=== PATIENT | male | born 1990 | race African-American/Black ===

== ENCOUNTER 2018-04-28 22:47 | Emergency (ER) | payer SELFPAY ==
--- OUTSIDE RECORDS SUMMARY | 2018-04-28 22:49 | XMS REPORT | Clinical Summary ---
:1990 Author Organization [facility] Address [address] [place] [address] Care Team Providers Name Role Phone Asked, No Pcp Primary Care Provider Unavailable Allergies No Known Allergies Medications No known medications Active Problems No known active problems Family History Medical History Relation Name Comments No Known Problems Father No Known Problems Mother Relation Name Status Comments Father Mother Social History Tobacco Use Types Packs/Day Years Used Date Never Smoker Alcohol Use Drinks/Week oz/Week Comments No Sex Assigned at Date Recorded Not on file Job Start Date Occupation Industry Not on file Not on file Not on file Travel History Travel Start Travel End No recent travel history available. Last Filed Vital Signs Not on file Plan of Treatment Health Maintenance Due Date Last Done Comments MMR VACCINES (1 of 1 - Standard 1991 series) VARICELLA VACCINES (1 of 2 - 2-dose 2003 adolescent series) INFLUENZA VACCINE 01/02/2018 HEPATITIS B VACCINES Aged Out No longer eligible based on patient's age to complete this topic IPV VACCINES Aged Out No longer eligible based on patient's age to complete this topic MENINGOCOCCAL VACCINE Aged Out No longer eligible based on patient's age to complete this topic Results Not on fileafter 04/27/2017 Insurance Payer Benefit Plan / Group Subscriber ID Type Phone Address [employer] ALLIED/A[employer] SIG ADMIN xxxxxxxxx PPO Advance Directives Patient has advance care planning documents on file. For more information, please contact:[address] [address]
[2018-04-29] MEDS ORDERED: MEPERIDINE HCL 50 MG/ML AMP ONE (00:14)
[2018-04-29] MEDS ORDERED: METHYLPREDNISOLONE 125 MG INJ ONE (00:14)
[2018-04-29] MEDS ORDERED: NA CHLORIDE 0.9% 1,000 ML ONE (00:15)
[2018-04-29] MEDS ORDERED: ONDANSETRON 4 MG/2 ML VIAL ONE (00:15)
[2018-04-29] MEDS ORDERED: CLINDAMYCIN 900MG/D5W 900 MG/50 ML IVPB IV ONE (00:15)
[2018-04-29 00:54] LABS: Absolute Lymphocytes (CBC) 1.3 K/uL (0.7-4.9); Absolute Monocytes 0.6 K/uL (0.1-1.3); Absolute Neutrophil 3.4 K/uL (1.8-8.0); Basophils % 0.7 % (0-1.3); Eosinophils % 4.2 % (0-4.4); Hematocrit 41.7 % (39.6-49.0); Lymphocytes % 23.4 % (15.3-44.8); MCH 26.6 pg (27.0-35.0); MCV 78.7 fL (80-100); MPV 7.9 fL (7.6-11.3); Monocytes % 11.2 % (3.3-12.3)
[2018-04-29 01:00] LABS: Potassium 3.9 mmol/L (3.5-5.1)
--- NOTE | 2018-04-29 01:50 | EDPHYS ---
Physician Documentation [facility] Name: Dannie Snell Age: 27 yrs Sex: Male : 1990 Arrival Date: 04/28/2018 Time: 22:47 Bed 17 Private MD: ED Physician Taco Hearn HPI: 04/28 23:52 This 27 yrs old Black Male presents to ER via Ambulatory with complaints of Mouth pkl Lacerations. 23:52 The patient has a laceration The injury was Bit the inside of his cheeks while chewing pkl gum yesterday. Now complain of pain in mouth and unable to fully open his mouth. Historical: - Allergies: 23:03 No Known Allergies; bb - Home Meds: 23:03 None [Active]; bb - PMHx: 23:03 None; bb - PSHx: 23:03 None; bb - Immunization history:: Adult Immunizations up to date. - Social history:: Smoking status: Patient uses tobacco products, denies chronic smoking, but will smoke occasionally, Patient uses alcohol, occasionally. Patient/guardian denies using street drugs. - Ebola Screening: : No symptoms or risks identified at this time. ROS: 23:56 Eyes: Negative for injury, pain, redness, and discharge. pkl 23:56 ENT: Positive for Pain in mouth and difficulty opening mouth fully. 23:56 Neck: Negative for stiffness. 23:56 Cardiovascular: Negative for chest pain. 23:56 Respiratory: Negative for cough, shortness of breath. 23:56 Abdomen/GI: Negative for abdominal pain, nausea, vomiting, and diarrhea. 23:56 Back: Negative for acute changes. 23:56 : Negative for urinary symptoms. 23:56 MS/extremity: Negative for acute changes. 23:56 Skin: Negative for rash. 23:56 Neuro: Negative for altered mental status. Exam: 23:56 Head/Face: Normocephalic, atraumatic. Eyes: Pupils equal round and reactive to light, pkl extra-ocular motions intact. Lids and lashes normal. Conjunctiva and sclera are non-icteric and not injected. Cornea within normal limits. Periorbital areas with no swelling, redness, or edema. 23:56 ENT: Mouth: unable to open mouth. 23:56 Neck: Exam negative for nuchal rigidity. 23:56 Chest/axilla: Exam negative for acute changes. 23:56 Cardiovascular: Exam negative for acute changes. 23:56 Respiratory: Exam negative for acute changes. 23:56 Abdomen/GI: Bowel sounds: normal, Palpation: abdomen is soft and non-tender, in all quadrants. 23:56 Back: Exam negative for acute changes. 23:56 : Exam negative for acute changes. 23:56 Musculoskeletal/extremity: Exam is negative for acute changes. 23:56 Skin: Exam negative for rash. 23:56 Neuro: Orientation: is normal, Mentation: is normal, Cranial nerves: grossly normal, Motor: is normal. Vital Signs: 23:03 BP 137 / 96; Pulse 78; Resp 16 S; Temp 98.8(O); Pulse Ox 99% on R/A; Weight 74.84 kg bb (R); Height 5 ft. 4 in. (162.56 cm) (R); Pain 8/10; 04/29 00:30 BP 132 / 77; Pulse 76; Resp 16 S; Pulse Ox 99% on R/A; cc3 01:45 BP 128 / 69; Pulse 77; Resp 18 S; Pulse Ox 98% on R/A; cc3 04/28 23:03 Body Mass Index 28.32 (74.84 kg, 162.56 cm) bb MDM: 04/28 23:09 Patient medically screened. pkl 04/29 01:38 Data reviewed: vital signs, nurses notes, lab test result(s). pkl 04/28 23:51 Order name: CBC with Diff pkl 04/28 23:51 Order name: Chem 7; Complete Time: 01:36 pkl 04/28 23:51 Order name: Sed Rate pkl 04/28 23:52 Order name: CBC with Automated Diff; Complete Time: 01:36 EDMS 04/28 23:52 Order name: Sedimentation Rate, Westergren; Complete Time: 01:36 EDMS Administered Medications: 00:15 Drug: NS 0.9% 1000 ml Route: IV; Rate: 125 ml/hr; Site: left antecubital; cc3 02:05 Follow up: Response: No adverse reaction; IV Status: Completed infusion; IV Intake: cc3 1000ml 00:17 Drug: SOLU-Medrol 125 mg Route: IVP; Site: left antecubital; cc3 01:00 Follow up: Response: No adverse reaction cc3 00:20 Drug: Zofran 4 mg Route: IVP; Site: left antecubital; cc3 01:00 Follow up: Response: No adverse reaction; Nausea is decreased cc3 00:24 Drug: Demerol 50 mg Route: IVP; Site: left antecubital; cc3 01:00 Follow up: Response: No adverse reaction; Pain is decreased cc3 00:27 Drug: Clindamycin 900 mg Route: IVPB; Infused Over: 30 mins; Site: left antecubital; cc3 01:00 Follow up: Response: No adverse reaction; IV Status: Completed infusion; IV Intake: [id number] Disposition: 04/29/18 01:50 Discharged to Home. Impression: Infected wound buccal mucosa. Trismus. - Condition is Stable. - Prescriptions for Clindamycin HCl 300 mg Oral Capsule - take 1 capsule by ORAL route every 6 hours for 7 days; 28 capsule. Ultram 50 mg Oral Tablet - take 1 tablet by ORAL route every 8 hours As needed; 20 tablet. - Medication Reconciliation Form, Thank You Letter, Antibiotic Education, Prescription Opioid Use, Work release form form. - Follow up: Jocy Grimes MD; When: 1 - 2 days; Reason: Re-evaluation by your physician. - Problem is new. - Symptoms have improved. Signatures: Dispatcher [employer] EDMS Taco Hearn MD MD pkl Addie Scott RN RN Jessie Smiley cc3 Corrections: (The following items were deleted from the chart) 02:12 01:50 04/29/2018 01:50 Discharged to Home. Impression: Infected wound buccal mucosa. cc3 Trismus. Condition is Stable. Forms are Medication Reconciliation Form, Thank You Letter, Antibiotic Education, Prescription Opioid Use. Follow up: Jocy Grimes; When: 1 - 2 days; Reason: Re-evaluation by your physician. Problem is new. Symptoms have improved. pkl
--- NOTE | 2018-04-29 01:50 | ER ---
Nurse's Notes [facility] Name: Dannie Snell Age: 27 yrs Sex: Male : 1990 Arrival Date: 04/28/2018 Time: 22:47 Bed 17 Private MD: Diagnosis: Infected wound buccal mucosa. Trismus Presentation: 04/28 23:01 Presenting complaint: Patient states: he was chewing gum yesterday and bit the inside bb of his cheeks bilaterally and now is having a lot of pain unable to fully open his mouth and can't sleep. Transition of care: patient was not received from another setting of care. Onset of symptoms was April 27, 2018. Risk Assessment: Do you want to hurt yourself or someone else? Patient reports no desire to harm self or others. Initial Sepsis Screen: Does the patient meet any 2 criteria? No. Patient's initial sepsis screen is negative. Does the patient have a suspected source of infection? No. Patient's initial sepsis screen is negative. Care prior to arrival: None. 23:01 Method Of Arrival: Ambulatory bb 23:01 Acuity: YENI 4 bb Triage Assessment: 23:00 General: Appears in no apparent distress. uncomfortable, Behavior is calm, cooperative, cc3 appropriate for age. Pain: Complains of pain in buccal mucosa. Historical: - Allergies: 23:03 No Known Allergies; bb - Home Meds: 23:03 None [Active]; bb - PMHx: 23:03 None; bb - PSHx: 23:03 None; bb - Immunization history:: Adult Immunizations up to date. - Social history:: Smoking status: Patient uses tobacco products, denies chronic smoking, but will smoke occasionally, Patient uses alcohol, occasionally. Patient/guardian denies using street drugs. - Ebola Screening: : No symptoms or risks identified at this time. Screenin:00 Abuse screen: Denies threats or abuse. Denies injuries from another. Nutritional cc3 screening: No deficits noted. Tuberculosis screening: No symptoms or risk factors identified. Fall Risk Ambulatory Aid- None/Bed Rest/Nurse Assist (0 pts). Gait- Normal/Bed Rest/Wheelchair (0 pts) Mental Status- Oriented to own ability (0 pts). Assessment: 23:00 General: Appears in no apparent distress. uncomfortable, Behavior is calm, cooperative, cc3 appropriate for age. Pain: Complains of pain in buccal mucosa. Neuro: Level of Consciousness is awake, alert, obeys commands, Oriented to person, place, time, situation, Appropriate for age. Cardiovascular: Denies chest pain. Respiratory: Airway is patent Respiratory effort is even, unlabored, Respiratory pattern is regular, symmetrical. GI: Abdomen is round non-distended. : No signs and/or symptoms were reported regarding the genitourinary system. EENT: No signs and/or symptoms were reported regarding the EENT system. Derm: No signs and/or symptoms reported regarding the dermatologic system. Musculoskeletal: Circulation, motion, and sensation intact. Range of motion: intact in all extremities. 04/29 00:30 Reassessment: Patient appears in no apparent distress at this time. Patient and/or cc3 family updated on plan of care and expected duration. Pain level reassessed. Patient is alert, oriented x 3, equal unlabored respirations, skin warm/dry/pink. 01:15 Reassessment: Patient appears in no apparent distress at this time. Patient and/or cc3 family updated on plan of care and expected duration. Pain level reassessed. Patient is alert, oriented x 3, equal unlabored respirations, skin warm/dry/pink. Dr. Hearn ordered to run bolus the IV fluid. 02:05 Reassessment: Patient appears in no apparent distress at this time. Patient and/or cc3 family updated on plan of care and expected duration. Pain level reassessed. Patient is alert, oriented x 3, equal unlabored respirations, skin warm/dry/pink. Dr. Hearn discharged home the patient with prescription given. IV cannula removed and patient left ER vitally stable and ambulatory. Vital Signs: 04/28 23:03 BP 137 / 96; Pulse 78; Resp 16 S; Temp 98.8(O); Pulse Ox 99% on R/A; Weight 74.84 kg bb (R); Height 5 ft. 4 in. (162.56 cm) (R); Pain 8/; 04/29 00:30 BP 132 / 77; Pulse 76; Resp 16 S; Pulse Ox 99% on R/A; cc3 01:45 BP 128 / 69; Pulse 77; Resp 18 S; Pulse Ox 98% on R/A; cc3 04/28 23:03 Body Mass Index 28.32 (74.84 kg, 162.56 cm) bb ED Course: 04/28 22:47 Patient arrived in ED. ds1 22:52 Jessie Bales is Primary Nurse. cc3 23:00 Patient has correct armband on for positive identification. Bed in low position. Call cc3 light in reach. Side rails up X 1. Pulse ox on. NIBP on. 23:03 Triage completed. bb 23:03 Arm band placed on Patient placed in an exam room, on a stretcher, on pulse oximetry. bb 23:09 Taco Hearn MD is Attending Physician. pkl 04/29 01:48 Jocy Grimes MD is Referral Physician. pkl 02:05 No provider procedures requiring assistance completed. IV discontinued, intact, cc3 bleeding controlled, No redness/swelling at site. Pressure dressing applied. Administered Medications: 00:15 Drug: NS 0.9% 1000 ml Route: IV; Rate: 125 ml/hr; Site: left antecubital; cc3 02:05 Follow up: Response: No adverse reaction; IV Status: Completed infusion; IV Intake: cc3 1000ml 00:17 Drug: SOLU-Medrol 125 mg Route: IVP; Site: left antecubital; cc3 01:00 Follow up: Response: No adverse reaction cc3 00:20 Drug: Zofran 4 mg Route: IVP; Site: left antecubital; cc3 01:00 Follow up: Response: No adverse reaction; Nausea is decreased cc3 00:24 Drug: Demerol 50 mg Route: IVP; Site: left antecubital; cc3 01:00 Follow up: Response: No adverse reaction; Pain is decreased cc3 00:27 Drug: Clindamycin 900 mg Route: IVPB; Infused Over: 30 mins; Site: left antecubital; cc3 01:00 Follow up: Response: No adverse reaction; IV Status: Completed infusion; IV Intake: [id number] Intake: 01:00 IV: 50ml; Total: 50ml. cc3 02:05 IV: 1000ml; Total: 1050ml. cc3 Outcome: 01:50 Discharge ordered by . pkl 02:05 Discharged to home ambulatory. cc3 02:05 Condition: stable 02:05 Discharge instructions given to patient, Instructed on discharge instructions, follow up and referral plans. medication usage, Demonstrated understanding of instructions, follow-up care, medications, Prescriptions given X 2. 02:12 Patient left the ED. cc3 Signatures: Taco Hearn MD MD pkl Sanford, Demi ds1 Ballard, Brenda RN RN Jessie Smiley cc3 Corrections: (The following items were deleted from the chart) 04:07 01:15 Reassessment: Patient appears in no apparent distress at this time. Patient cc3 and/or family updated on plan of care and expected duration. Pain level reassessed. Patient is alert, oriented x 3, equal unlabored respirations, skin warm/dry/pink. cc3
== END 2018-04-29 02:12 | disposition home or self-care (01) ==
LOC: ER 22:47
DX: S01.502A Unspecified open wound of oral cavity, initial encounter (principal); R25.2 Cramp and spasm; B99.9 Unspecified infectious disease; Z72.0 Tobacco use; X58.XXXA Exposure to other specified factors, initial encounter
CPT/HCPCS: 36415; 80048; 85025; 85652; 96361; 96365; 96375; 99283; J2175; J2405; J2930; J7030

== ENCOUNTER 2018-10-08 13:16 | Emergency (ER) | payer SELFPAY ==
--- OUTSIDE RECORDS SUMMARY | 2018-10-08 13:18 | XMS REPORT | Clinical Summary ---
:1990 Author Organization [facility] Address [address] [place] [address] Care Team Providers Name Role Phone Asked, [...] Health Maintenance Due Date Last Done Comments INFLUENZA VACCINE 01/02/2019 Results Not on fileafter 10/07/2017 Insurance Payer Benefit Plan / Group Subscriber ID Type Phone Address [employer] ALLIED/AETNA SIG ADMIN xxxxxxxxx PPO Advance Directives Patient has advance care planning documents on file. For more information, please contact:[facility] [place] [address]
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
== END 2018-10-08 16:02 | disposition home or self-care (01) ==
LOC: ER 13:16
DX: M54.2 Cervicalgia (principal); J02.9 Acute pharyngitis, unspecified; V49.49XA Driver injured in collision with other motor vehicles in traffic accident, initial encounter; F17.210 Nicotine dependence, cigarettes, uncomplicated
CPT/HCPCS: 72125; 87070; 87081; 99282

== ENCOUNTER 2019-06-22 07:54 | Emergency (ER) | payer OTHER, SELFPAY ==
--- NOTE | 2019-06-22 08:13 | ER ---
Nurse's Notes [facility] Name: Dannie Snell Age: 29 yrs Sex: Male : 1990 Arrival Date: 06/22/2019 Time: 07:57 Bed 14 Private MD: Diagnosis: Acute serous otitis media, right ear Presentation: 06/22 08:02 Presenting complaint: Patient states: right ear started throbbing inside, could barely iw hear out of it, since last night. Transition of care: patient was not received from another setting of care. Onset of symptoms was June 21, 2019. Risk Assessment: Do you want to hurt yourself or someone else? Patient reports no desire to harm self or others. Initial Sepsis Screen: Does the patient meet any 2 criteria? No. Patient's initial sepsis screen is negative. Does the patient have a suspected source of infection? No. Patient's initial sepsis screen is negative. Care prior to arrival: None. 08:02 Method Of Arrival: Ambulatory iw 08:02 Acuity: YENI 4 iw Historical: - Allergies: 08:03 No Known Allergies; iw - Home Meds: 08:03 None [Active]; iw - PMHx: 08:03 None; iw - PSHx: 08:03 None; iw - Immunization history:: Adult Immunizations not up to date. - Social history:: Smoking status: Patient reports the use of cigarette tobacco products, smokes one-half pack cigarettes per day. - Ebola Screening: : Patient negative for fever greater than or equal to 101.5 degrees Fahrenheit, and additional compatible Ebola Virus Disease symptoms Patient denies exposure to infectious person Patient denies travel to an Ebola-affected area in the 21 days before illness onset No symptoms or risks identified at this time. Screenin:22 Abuse screen: Denies threats or abuse. Nutritional screening: No deficits noted. ae4 Tuberculosis screening: No symptoms or risk factors identified. Fall Risk None identified. Assessment: 08:20 General: Appears in no apparent distress. uncomfortable, Behavior is calm, cooperative. ae4 Pain: Complains of pain in right ear canal. Neuro: Level of Consciousness is awake, alert, obeys commands, Oriented to person, place, time, situation. Cardiovascular: Patient's skin is warm and dry. Respiratory: Airway is patent. GI: No signs and/or symptoms were reported involving the gastrointestinal system. : No signs and/or symptoms were reported regarding the genitourinary system. EENT: Tympanic membrane Tympanic membrane is moderately swollen. Derm: Skin is normal, Skin temperature is warm. Musculoskeletal: No signs and/or symptoms reported regarding the musculoskeletal system. Vital Signs: 08:03 BP 138 / 97; Pulse 91; Resp 16; Temp 98.8(TE); Pulse Ox 98% on R/A; Weight 79.38 kg; iw Height 5 ft. 4 in. (162.56 cm); Pain 8/10; 08:03 Body Mass Index 30.04 (79.38 kg, 162.56 cm) iw ED Course: 07:57 Patient arrived in ED. rg4 07:58 Mars Wisdom FNP-C [facility] la1 07:58 Koby Ramirez MD is Attending Physician. la1 08:03 Triage completed. iw 08:03 Arm band placed on. iw 08:14 Bebo Campbell, RN is Primary Nurse. ae4 08:22 Call light in reach. Side rails up X 1. ae4 08:22 No provider procedures requiring assistance completed. Patient did not have IV access ae4 during this emergency room visit. Administered Medications: 08:19 Drug: Motrin 800 mg Route: PO; ae4 08:29 Follow up: Response: Medication administered at discharge. ae4 08:19 Drug: Tylenol 1000 mg Route: PO; ae4 08:28 Follow up: Response: Medication administered at discharge. ae4 Outcome: 08:13 Discharge ordered by . la1 08:23 Discharged to home ambulatory. ae4 08:23 Condition: stable 08:23 Discharge instructions given to patient, Instructed on discharge instructions, follow up and referral plans. medication usage, Demonstrated understanding of instructions, Prescriptions given X 1. 08:29 Patient left the ED. ae4 Signatures: Virginia Olea RN RN Mars Wisdom FNP-C FNP-Alma Velez rg4 Bebo Campbell RN RN ae4
--- NOTE | 2019-06-22 08:14 | EDPHYS ---
Physician Documentation [facility] Name: Dannie Snell Age: 29 yrs Sex: Male : 1990 Arrival Date: 06/22/2019 Time: 07:57 Bed 14 Private MD: ARNAV Physician Koby Ramirez HPI: 06/22 08:08 This 29 yrs old Black Male presents to ER via Ambulatory with complaints of Ear Pain. la1 08:08 The patient presents with pain. The complaints affect the right ear. Onset: The la1 symptoms/episode began/occurred 1 day(s) ago. Modifying factors: The symptoms are alleviated by nothing, the symptoms are aggravated by nothing. Associated signs and symptoms: Pertinent positives: fever, cough. Severity of symptoms: At their worst the symptoms were mild. The patient has not experienced similar symptoms in the past. recently ill with cough/congestion, now having right ear pain. Historical: - Allergies: 08:03 No Known Allergies; iw - Home Meds: 08:03 None [Active]; iw - PMHx: 08:03 None; iw - PSHx: 08:03 None; iw - Immunization history:: Adult Immunizations not up to date. - Social history:: Smoking status: Patient reports the use of cigarette tobacco products, smokes one-half pack cigarettes per day. - Ebola Screening: : Patient negative for fever greater than or equal to 101.5 degrees Fahrenheit, and additional compatible Ebola Virus Disease symptoms Patient denies exposure to infectious person Patient denies travel to an Ebola-affected area in the 21 days before illness onset No symptoms or risks identified at this time. ROS: 08:09 Eyes: Negative for injury, pain, redness, and discharge. la1 08:09 Neck: Negative for injury, pain, and swelling, Cardiovascular: Negative for chest pain, palpitations, and edema, Respiratory: Negative for shortness of breath, cough, wheezing, and pleuritic chest pain, Abdomen/GI: Negative for abdominal pain, nausea, vomiting, diarrhea, and constipation, Back: Negative for injury and pain, MS/Extremity: Negative for injury and deformity, Skin: Negative for injury, rash, and discoloration, Neuro: Negative for headache, weakness, numbness, tingling, and seizure. 08:09 Constitutional: Positive for chills. 08:09 ENT: Positive for ear pain. Exam: 08:10 Constitutional: This is a well developed, well nourished patient who is awake, alert, la1 and in no acute distress. Head/Face: Normocephalic, atraumatic. Eyes: Pupils equal round and reactive to light, extra-ocular motions intact. Lids and lashes normal. Conjunctiva and sclera are non-icteric and not injected. Cornea within normal limits. Periorbital areas with no swelling, redness, or edema. 08:10 Neck: Trachea midline, no thyromegaly or masses palpated, and no cervical lymphadenopathy. Supple, full range of motion without nuchal rigidity, or vertebral point tenderness. No Meningismus. Chest/axilla: Normal chest wall appearance and motion. Nontender with no deformity. Cardiovascular: Regular rate and rhythm Respiratory: Lungs have equal breath sounds bilaterally, clear to auscultation. Skin: Warm, dry with normal turgor. Normal color with no rashes, no lesions, and no evidence of cellulitis. MS/ Extremity: Pulses equal, no cyanosis. Neurovascular intact. Full, normal range of motion. 08:10 ENT: External ear(s): are unremarkable, Ear canal(s): are normal, TM's: bulging, on the right, dullness, on the right, Examination of the other ear shows no obvious abnormality, Posterior pharynx: is normal, Airway: normal, Tonsils: are normal in appearance, Uvula: normal, midline, erythema, is not appreciated. Vital Signs: 08:03 BP 138 / 97; Pulse 91; Resp 16; Temp 98.8(TE); Pulse Ox 98% on R/A; Weight 79.38 kg; iw Height 5 ft. 4 in. (162.56 cm); Pain 8/10; 08:03 Body Mass Index 30.04 (79.38 kg, 162.56 cm) iw MDM: 08:04 Patient medically screened. la1 08:11 Data reviewed: vital signs, nurses notes, and as a result, I will discharge patient. la1 Data interpreted: Pulse oximetry: on room air is 98 %. Interpretation: normal. Counseling: I had a detailed discussion with the patient and/or guardian regarding: the historical points, exam findings, and any diagnostic results supporting the discharge/admit diagnosis, the presence of at least one elevated blood pressure reading (>120/80) during this emergency department visit, the need for outpatient follow up, a family practitioner, to return to the emergency department if symptoms worsen or persist or if there are any questions or concerns that arise at home. Administered Medications: 08:19 Drug: Motrin 800 mg Route: PO; ae4 08:29 Follow up: Response: Medication administered at discharge. ae4 08:19 Drug: Tylenol 1000 mg Route: PO; ae4 08:28 Follow up: Response: Medication administered at discharge. ae4 Disposition: 10:01 Co-signature as Attending Physician, Koby Ramirez MD I agree with the assessment and joanna plan of care. Disposition: 06/22/19 08:13 Discharged to Home. Impression: Acute serous otitis media, right ear. - Condition is Stable. - Discharge Instructions: Otitis Media, Adult. - Prescriptions for Augmentin 875- 125 mg Oral Tablet - take 1 tablet by ORAL route every 12 hours for 10 days; 20 tablet. - Medication Reconciliation Form, Thank You Letter, Antibiotic Education form. - Follow up: Private Physician; When: As needed; Reason: Recheck today's complaints, Continuance of care, Re-evaluation by your physician. - Problem is new. - Symptoms are unchanged. Signatures: Koby Ramirez MD MD cha Williams, Irene, RN RN Mars Wisdom, PRINCIPAL SYSTEM SOFTWARE ENGINEER-C PRINCIPAL SYSTEM SOFTWARE ENGINEER-Cla1 Bebo Campbell RN RN ae4 Corrections: (The following items were deleted from the chart) 08:29 08:13 06/22/2019 08:13 Discharged to Home. Impression: Acute serous otitis media, right ae4 ear. Condition is Stable. Forms are Medication Reconciliation Form, Thank You Letter, Antibiotic Education, Prescription Opioid Use. Follow up: Private Physician; When: As needed; Reason: Recheck today's complaints, Continuance of care, Re-evaluation by your physician. Problem is new. Symptoms are unchanged. la1
[2019-06-22] MEDS ORDERED: IBUPROFEN 400 MG TAB ONE (08:18)
[2019-06-22] MEDS ORDERED: ACETAMINOPHEN 500 MG TAB ONE (08:18)
[2019-06-22 11:30] VITALS: BP 138/97; TEMP 98.8; O2SAT 98
== END 2019-06-22 08:29 | disposition home or self-care (01) ==
LOC: ER 07:54
DX: H65.01 Acute serous otitis media, right ear (principal)
CPT/HCPCS: 99283

== ENCOUNTER 2019-12-23 14:52 | Emergency (ER) | payer OTHER ==
--- OUTSIDE RECORDS SUMMARY | 2019-12-23 15:36 | XMS REPORT | Clinical Summary ---
:1990 Author Organization [facility] Address [address] [place] [address] Care Team Providers Name Role Phone Asked, [...] Due Date Last Done Comments INFLUENZA VACCINE 01/03/2020 Results Not on fileafter 12/22/2018 [id number] 1 Advance Directives For more information, please contact: [phone] Type Date Recorded Patient Consultant Education Explanati on Advance Directives, Living Will and Medical Power of Technical Support Director
--- NOTE | 2019-12-23 15:55 | EDPHYS ---
Physician Documentation [facility] Name: Dannie Snell Age: 29 yrs Sex: Male : 1990 Arrival Date: 12/23/2019 Time: 14:59 Bed 19 Private MD: ED Physician Andrade Velasco HPI: 12/22 15:51 This 29 yrs old Black Male presents to ER via Ambulatory with complaints of Back Pain. jmm 15:51 The patient presents with pain that is acute. Onset: The symptoms/episode jmm began/occurred gradually, 3 day(s) ago. The pain does not radiate. Associated signs and symptoms: Pertinent negatives: chest pain, fever. This is a 29 year old male with no chronic medical conditions that presents to the ED with complaints of right subscapular back pain beginning approx 3 days ago. Denies known injury. Worsened with movement. Denies chest pain, denies shortness of breath. . Historical: - Allergies: 15:16 No Known Allergies; ca1 - Home Meds: 15:16 None [Active]; ca1 - PMHx: 15:16 None; ca1 - PSHx: 15:16 None; ca1 - Immunization history:: Adult Immunizations up to date. - Social history:: Smoking status: Patient/guardian denies using tobacco, Stopped _ months ago 3. ROS: 15:51 Constitutional: Negative for fever, chills, and weight loss, Cardiovascular: Negative jmm for chest pain, palpitations, and edema, Respiratory: Negative for shortness of breath, cough, wheezing, and pleuritic chest pain. 15:51 Back: Positive for pain with movement. 15:51 All other systems are negative. Exam: 15:51 Constitutional: This is a well developed, well nourished patient who is awake, alert, jmm and in no acute distress. Head/Face: atraumatic. Eyes: EOMI, no conjunctival erythema appreciated ENT: Moist Mucus Membranes Neck: Trachea midline, Supple Chest/axilla: Normal chest wall appearance and motion. Cardiovascular: Regular rate and rhythm. No edema appreciated Respiratory: Normal respirations, no respiratory distress appreciated Abdomen/GI: Non distended, soft 15:51 MS/ Extremity: Moves all extremities, no obvious deformities appreciated, no edema noted to the lower extremities Neuro: Awake and alert, normal gait Psych: Behavior is normal, Mood is normal, Patient is cooperative and pleasant 15:51 Back: muscle spasm, is appreciated in the right subscapular area. Vital Signs: 15:10 BP 136 / 95; Pulse 92; Resp 15 S; Temp 98(TE); Pulse Ox 100% on R/A; Weight 81.65 kg ca1 (R); Height 5 ft. 4 in. (162.56 cm) (R); Pain 8/10; 16:41 BP 127 / 85; Pulse 87; Resp 18; Temp 97.3; Pulse Ox 99% on R/A; ph 15:10 Body Mass Index 30.90 (81.65 kg, 162.56 cm) ca1 MDM: 15:44 Patient medically screened. uzair 15:53 Data reviewed: vital signs, nurses notes. Counseling: I had a detailed discussion with uzair the patient and/or guardian regarding: the historical points, exam findings, and any diagnostic results supporting the discharge/admit diagnosis, the need for outpatient follow up, to return to the emergency department if symptoms worsen or persist or if there are any questions or concerns that arise at home. ED course: Pain is reproduced on palpation and ROM of the right arm. PE indicated most likely a MS source. Patient is advised to return to the ED if symptoms worsen. Patient understood and agrees with the plan of care. . Administered Medications: 16:30 Drug: TORadol 30 mg Route: IM; Site: right deltoid; ph 16:43 Follow up: Response: No adverse reaction ph Disposition: 17:52 Co-signature as Attending Physician, Andrade Velasco MD. rn Disposition: 12/23/19 15:54 Discharged to Home. Impression: Muscle spasm of back. - Condition is Stable. - Discharge Instructions: Muscle Cramps and Spasms. - Prescriptions for Ibuprofen 800 mg Oral Tablet - take 1 tablet by ORAL route every 12 hours As needed take with food; 20 tablet. orphenadrine citrate 100 mg Oral Tablet Sustained Release - take 1 tablet by ORAL route 2 times per day As needed; 20 tablet. - Work release form, Medication Reconciliation Form, Thank You Letter, Antibiotic Education, Prescription Opioid Use form. - Follow up: Private Physician; When: 2 - 3 days; Reason: Recheck today's complaints, Continuance of care, Re-evaluation by your physician. Signatures: MicPaddy horne PA PA jmm Nieto, Roman, MD MD rn Mayra Holley RN RN [facility], CALLIE Arreaga RN [facility] Corrections: (The following items were deleted from the chart) 16:43 15:54 12/23/2019 15:54 Discharged to Home. Impression: Muscle spasm of back. Condition ph is Stable. Forms are Medication Reconciliation Form, Thank You Letter, Antibiotic Education, Prescription Opioid Use. Follow up: Private Physician; When: 2 - 3 days; Reason: Recheck today's complaints, Continuance of care, Re-evaluation by your physician. uzair
--- NOTE | 2019-12-23 15:55 | ER ---
Nurse's Notes [facility] Name: Dannie Snell Age: 29 yrs Sex: Male : 1990 Arrival Date: 12/23/2019 Time: 14:59 Bed 19 Private MD: Diagnosis: Muscle spasm of back Presentation: 12/22 15:10 Chief complaint: Patient states: R upper back pain x 2 days. Denies injury. Coronavirus ca1 screen: Patient denies a cough. Patient denies shortness of breath or difficulty breathing. Patient denies measured and/or subjective temperature greater than 100.4F prior to today's visit. Patient denies travel on a cruise ship or to a country the [facility] currently lists as an affected area. Patient denies contact with known and/or suspected case of COVID-19. Proceed with normal triage. Ebola Screen: Patient negative for fever greater than or equal to 101.5 degrees Fahrenheit, and additional compatible Ebola Virus Disease symptoms Patient denies exposure to infectious person. Patient denies travel to an Ebola-affected area in the 21 days before illness onset. No symptoms or risks identified at this time. Initial Sepsis Screen: Does the patient meet any 2 criteria? No. Patient's initial sepsis screen is negative. Does the patient have a suspected source of infection? No. Patient's initial sepsis screen is negative. Risk Assessment: Do you want to hurt yourself or someone else? Patient reports no desire to harm self or others. Onset of symptoms was December 23, 2019. 15:10 Method Of Arrival: Ambulatory ca1 15:10 Acuity: YENI 4 ca1 Historical: - Allergies: 15:16 No Known Allergies; ca1 - Home Meds: 15:16 None [Active]; ca1 - PMHx: 15:16 None; ca1 - PSHx: 15:16 None; ca1 - Immunization history:: Adult Immunizations up to date. - Social history:: Smoking status: Patient/guardian denies using tobacco, Stopped _ months ago 3. Screenin:41 Abuse screen: Denies threats or abuse. Denies injuries from another. Nutritional ph screening: No deficits noted. Tuberculosis screening: No symptoms or risk factors identified. Fall Risk None identified. Assessment: 16:39 General: Appears in no apparent distress. uncomfortable, well groomed, Behavior is ph calm, cooperative, appropriate for age. Pain: Complains of pain in right subscapular area. Neuro: Level of Consciousness is awake, alert, obeys commands, Oriented to person, place, time, situation. Cardiovascular: Capillary refill < 3 seconds in bilateral fingers Patient's skin is warm and dry. Respiratory: Airway is patent Respiratory effort is even, unlabored, Respiratory pattern is regular, symmetrical. Derm: Skin is intact, is healthy with good turgor, Skin is pink, warm \T\ dry. Musculoskeletal: Circulation, motion, and sensation intact. Range of motion: intact in all extremities. Vital Signs: 15:10 BP 136 / 95; Pulse 92; Resp 15 S; Temp 98(TE); Pulse Ox 100% on R/A; Weight 81.65 kg ca1 (R); Height 5 ft. 4 in. (162.56 cm) (R); Pain 8/10; 16:41 BP 127 / 85; Pulse 87; Resp 18; Temp 97.3; Pulse Ox 99% on R/A; ph 15:10 Body Mass Index 30.90 (81.65 kg, 162.56 cm) ca1 ED Course: 14:59 Patient arrived in ED. fj1 15:15 Triage completed. ca1 15:16 Paddy Betancourt PA is PHCP. [facility] 15:16 Arm band placed on right wrist. ca1 15:17 Andrade Velasco MD is Attending Physician. [facility] 15:24 Mayra Holley RN is Primary Nurse. ph 16:41 Patient has correct armband on for positive identification. Bed in low position. Call light in reach. 16:41 No provider procedures requiring assistance completed. Patient did not have IV access ph during this emergency room visit. Administered Medications: 16:30 Drug: TORadol 30 mg Route: IM; Site: right deltoid; ph 16:43 Follow up: Response: No adverse reaction ph Outcome: 15:54 Discharge ordered by MD. [facility] 16:43 Patient left the ED. ph 16:43 Discharged to home ambulatory. ph 16:43 Condition: good 16:43 Discharge instructions given to patient, Instructed on discharge instructions, follow up and referral plans. medication usage, Demonstrated understanding of instructions, follow-up care, medications, Prescriptions given X 2. Signatures: Paddy Betancourt PA PA jmm Hall, Patricia, RN RN ph Whitley Chau RN RN ca1 Gustavo Del Rio fj1 Corrections: (The following items were deleted from the chart) 16:43 16:30 Reassessment: ph ph
[2019-12-23] MEDS ORDERED: KETOROLAC 30 MG/ML INJ ONE (16:39)
[2019-12-24 06:13] VITALS: BP 127/85; TEMP 97.3; O2SAT 99
== END 2019-12-23 16:43 | disposition home or self-care (01) ==
LOC: ER 14:52
DX: M62.830 Muscle spasm of back (principal)
CPT/HCPCS: 96372; 99283

== ENCOUNTER 2020-12-14 23:59 | Emergency (ER) | payer OTHER ==
--- OUTSIDE RECORDS SUMMARY | 2020-12-15 00:02 | XMS REPORT | Continuity of Care Document ---
:1990 Author Organization [facility] t Address [address] [place] [address] Care Team Providers Name Role Phone Asked, Pcp Primary Care Physician Unavailable Lab, Fam Pob I Attending Clinician Unavailable Problems This patient has no known problems. Allergies, Adverse Reactions, Alerts This patient has no known allergies or adverse reactions. Family History Family Member Diagnosis Comments Start Date Stop Date Source Natural father No Known Problems Flory Almanzar Natural mother No Known Problems Flory Almanzar Social History Social Habit Start Date Stop Date Quantity Comments Source Alcohol intake 2016-02-16 2016-02-16 Current [facility]odist 00:00:00 00:00:00 non-drinker of alcohol (finding) Sex Ass[birth year] [facility] ethodist 00:00:00 00:00:00 Smoking Status Start Date Stop Date Source Never smoker [place] [facility] t Medications This patient has no known medications. Procedures This patient has no known procedures. Plan of Care Planned Activity Planned Date Details Comments Source Future Scheduled 2021-01-02 INFLUENZA VACCINE Shirato dominique Temple Test 00:00:00 [code = INFLUENZA VACCINE] Future Scheduled 2002 COVID-19 VACCINE (1) Flory Almanzar Test 00:00:00 [code = COVID-19 VACCINE (1)] Encounters Start End Encounter Admission Attending Care Care Encounter Source Date/Time Date/Time Type Type Clinicians Facility Department ID 2020-01-01 2020-01-01 Laboratory Lab, [facility] [id number] 15:46:10 16:06:10 Only Fam Pob I [facility] [id number] [place] [id number] [facility]io [phone] [address] Results This patient has no known results.
[2020-12-15 00:42] LABS: Protime INR 1.12
[2020-12-15 00:47] LABS: Urine Blood Negative (Negative); Urine Glucose Negative (Negative); Urine Protein 2+ (Negative); Urine Specific Gravity >=1.030 (1.005-1.030)
[2020-12-15 00:48] LABS: Absolute Lymphocytes (CBC) 1.1 K/uL (0.7-4.9); Basophils % 1.1 % (0-1.3); Hematocrit 47.1 % (39.6-49.0); MPV 7.4 fL (7.6-11.3); RBC Red Blood Cell Count 6.18 M/uL (4.33-5.43)
[2020-12-15 00:53] LABS: ALT/SGPT 77 U/L (12-78); AST/SGOT 46 U/L (15-37); Alkaline Phosphatase 91 U/L (45-117); BUN Blood Urea Nitrogen 23 mg/dL (7-18); Bicarbonate 25 mmol/L (21-32); Bilirubin Direct 0.2 mg/dL (0-0.2); Bilirubin Total 0.8 mg/dL (0.2-1.0); Glucose Level 100 mg/dL (74-106); HDL Cholesterol 52 mg/dL (40-60); LDL Cholesterol, Calculated 163 (<130); Magnesium 2.1 mg/dL (1.8-2.4); NT PRO-BNP 13 pg/mL (<125); Potassium 3.8 mmol/L (3.5-5.1); Protein, Total 11.4 g/dL (6.4-8.2); Sodium Level 134 mmol/L (136-145); Troponin (Emerg Dept Use Only) < 0.02 ng/mL (0.0-0.045)
[2020-12-15] MEDS ORDERED: ONDANSETRON 4 MG/2 ML VIAL ONE (00:53)
[2020-12-15] MEDS ORDERED: NA CHLORIDE 0.9% 1,000 ML ONE ×3 (00:53→01:29)
[2020-12-15] MEDS ORDERED: MORPHINE 2 MG/ML SYR ONE (00:53)
[2020-12-15 01:02] LABS: Barbiturates NEGATIVE (NEGATIVE); Benzodiazepines NEGATIVE (NEGATIVE); Cocaine NEGATIVE (NEGATIVE); METHAMPHETAM NEGATIVE (NEGATIVE); Methadone NEGATIVE (NEGATIVE); Opiates NEGATIVE (NEGATIVE); Phencyclidine NEGATIVE (NEGATIVE); THC Cannibis NEGATIVE (NEGATIVE)
[2020-12-15] MEDS ORDERED: ASPIRIN 81 MG CHEWABLE TABLET ONE (01:29)
[2020-12-15 01:52] LABS: CKMB Creatine Kinase MB 1.9 ng/mL (1.0-3.6)
--- NOTE | 2020-12-15 01:53 | EDPHYS ---
Physician Documentation [facility] Name: Dannie Snell Age: 30 yrs Sex: Male : 1990 Arrival Date: 12/15/2020 Time: 00:03 Bed 3 Private MD: ED Physician Koby Ramirez HPI: 12/15 00:56 This 30 yrs old Black Male presents to ER via Ambulatory with complaints of Shortness joanna Of Breath, Chest Pain > 30 y/o. 00:56 The patient has shortness of breath at rest, with light activity. Onset: The joanna symptoms/episode began/occurred just prior to arrival. Duration: The symptoms are continuous, but are steadily getting better. The patient's shortness of breath has no apparent modifying factors. Associated signs and symptoms: The patient has no apparent associated signs or symptoms. Severity of symptoms: At their worst the symptoms were mild in the emergency department the symptoms are unchanged. The patient has not experienced similar symptoms in the past. Historical: - Allergies: 00:33 No Known Allergies; ak2 - Immunization history:: Adult Immunizations up to date. - Social history:: Smoking status: unknown. - Family history:: not pertinent. ROS: 00:56 Constitutional: Negative for fever, chills, and weight loss, Eyes: Negative for injury, joanna pain, redness, and discharge, ENT: Negative for injury, pain, and discharge, Neck: Negative for injury, pain, and swelling, Respiratory: Negative for shortness of breath, cough, wheezing, and pleuritic chest pain, Abdomen/GI: Negative for abdominal pain, nausea, vomiting, diarrhea, and constipation, Back: Negative for injury and pain, : Negative for injury, bleeding, discharge, and swelling, MS/Extremity: Negative for injury and deformity, Skin: Negative for injury, rash, and discoloration, Neuro: Negative for headache, weakness, numbness, tingling, and seizure, Psych: Negative for depression, anxiety, suicide ideation, homicidal ideation, and hallucinations, Allergy/Immunology: Negative for hives, rash, and allergies, Endocrine: Negative for neck swelling, polydipsia, polyuria, polyphagia, and marked weight changes, Hematologic/Lymphatic: Negative for swollen nodes, abnormal bleeding, and unusual bruising. 00:56 Cardiovascular: Positive for chest pain, with movement. Exam: 00:56 Constitutional: This is a well developed, well nourished patient who is awake, alert, joanna and in no acute distress. Head/Face: Normocephalic, atraumatic. Eyes: Pupils equal round and reactive to light, extra-ocular motions intact. Lids and lashes normal. Conjunctiva and sclera are non-icteric and not injected. Cornea within normal limits. Periorbital areas with no swelling, redness, or edema. ENT: Nares patent. No nasal discharge, no septal abnormalities noted. Tympanic membranes are normal and external auditory canals are clear. Oropharynx with no redness, swelling, or masses, exudates, or evidence of obstruction, uvula midline. Mucous membranes moist. Neck: Trachea midline, no thyromegaly or masses palpated, and no cervical lymphadenopathy. Supple, full range of motion without nuchal rigidity, or vertebral point tenderness. No Meningismus. Chest/axilla: Normal chest wall appearance and motion. Nontender with no deformity. No lesions are appreciated. Cardiovascular: Regular rate and rhythm with a normal S1 and S2. No gallops, murmurs, or rubs. Normal PMI, no JVD. No pulse deficits. Respiratory: Lungs have equal breath sounds bilaterally, clear to auscultation and percussion. No rales, rhonchi or wheezes noted. No increased work of breathing, no retractions or nasal flaring. Abdomen/GI: Soft, non-tender, with normal bowel sounds. No distension or tympany. No guarding or rebound. No evidence of tenderness throughout. Back: No spinal tenderness. No costovertebral tenderness. Full range of motion. Male : Normal genitalia with no discharge or lesions. Skin: Warm, dry with normal turgor. Normal color with no rashes, no lesions, and no evidence of cellulitis. MS/ Extremity: Pulses equal, no cyanosis. Neurovascular intact. Full, normal range of motion. Neuro: Awake and alert, GCS 15, oriented to person, place, time, and situation. Cranial nerves II-XII grossly intact. Motor strength 5/5 in all extremities. Sensory grossly intact. Cerebellar exam normal. Normal gait. Psych: Awake, alert, with orientation to person, place and time. Behavior, mood, and affect are within normal limits. 00:56 Musculoskeletal/extremity: Extremities: all appear grossly normal, with no appreciated pain with palpation, ROM: no acute changes, intact in all extremities, full active range of motion, full passive range of motion, Circulation is intact in all extremities. Sensation intact. Compartment Syndrome exam of affected extremity: is normal. Joints: All joints appear normal with full range of motion. Weight bearing: able to fully bear weight, Tendon exam: specific tendon testing normal through active and passive range of motion DVT Exam: No signs of deep vein thrombosis. no pain, no swelling, no tenderness, negative Homans' sign noted on exam, no appreciated bluish discoloration, no erythema, no increased warmth. 00:59 ECG was reviewed by the Attending Physician. [facility] Vital Signs: 00:32 BP 142 / 84; Pulse 97; Resp 18; Temp 98.6; Pulse Ox 100% ; ak2 02:49 BP 138 / 79; Pulse 96; Resp 16; Pulse Ox 100% on R/A; jm8 MDM: 00:23 Patient medically screened. joanna 00:58 Differential diagnosis: Anxiety Reaction Myocardial Infarction pneumonia, Pneumothorax joanna Pulmonary Embolism reactive airway disease. Antibiotic administration: Not indicated. The patient's Wells Deep Vein Thrombosis Score was calculated as follows: Total Score: 0-2 Pts- Low Risk. The patient's pulmonary embolism risk score was calculated as follows: Total Score: 0-2 points. This patient was found to be at low risk for a pulmonary embolism by using the Well's assessment criteria. Immunization status:. Data reviewed: vital signs, nurses notes, lab test result(s), EKG, radiologic studies, CT scan, plain films. Data interpreted: media monitor: rate is 97 beats/min, rhythm is regular, Pulse oximetry: on room air is 100 %. Test interpretation: by ED physician or midlevel provider: ECG, plain radiologic studies. Counseling: I had a detailed discussion with the patient and/or guardian regarding: the historical points, exam findings, and any diagnostic results supporting the discharge/admit diagnosis, lab results, radiology results, the need for outpatient follow up, for definitive care, a toeing stockings, a family practitioner. 12/15 00:25 Order name: Basic Metabolic Panel; Complete Time: 01:02 joanna 12/15 00:25 Order name: CBC with Diff; Complete Time: 00:56 joanna 12/15 00:25 Order name: LFT's; Complete Time: 01:02 joanna 12/15 00:25 Order name: Magnesium; Complete Time: 01:02 12/15 00:25 Order name: NT PRO-BNP; Complete Time: 01:02 12/15 00:25 Order name: PT-INR; Complete Time: 00:56 12/15 00:25 Order name: Troponin (emerg Dept Use Only); Complete Time: 01:02 [facility] 12/15 00:25 Order name: XRAY Chest (1 view) 12/15 00:25 Order name: Lipid Profile; Complete Time: 01:02 12/15 00:25 Order name: UDS; Complete Time: 01:51 [facility] 12/15 00:47 Order name: Urine Dipstick-Ancillary; Complete Time: 00:56 EDMS 12/15 01:01 Order name: D-Dimer; Complete Time: 01:51 12/15 01:01 Order name: CK joanna 12/15 01:01 Order name: Ckmb 12/15 00:25 Order name: EKG; Complete Time: 00:26 12/15 00:25 Order name: Cardiac monitoring; Complete Time: 00:39 12/15 00:25 Order name: EKG - Nurse/Tech; Complete Time: 00:39 12/15 00:25 Order name: IV Saline Lock; Complete Time: 00:27 12/15 00:25 Order name: Labs collected and sent; Complete Time: 00:27 12/15 00:25 Order name: O2 Per Protocol; Complete Time: 00:27 12/15 00:25 Order name: O2 Sat Monitoring; Complete Time: 00:27 12/15 00:25 Order name: Urine Dipstick-Ancillary (obtain specimen); Complete Time: 00:47 12/15 01:01 Order name: Thorax Wo Con EDMS EC:59 Rate is 104 beats/min. Rhythm is regular. QRS [place] is Normal. LA interval is normal. [facility] QRS interval is normal. QT interval is normal. No Q waves. T waves are Normal. No ST changes noted. Clinical impression: Sinus tachycardia and No evidence of ischemia. Interpreted by me. Reviewed by me. Administered Medications: 00:39 Drug: NS 0.9% 1000 ml Route: IV; Rate: 1 bolus; Site: right antecubital; jm8 01:24 Follow up: IV Status: Completed infusion jm8 00:39 Drug: morphine 2 mg Route: IVP; Site: right antecubital; jm8 01:24 Follow up: Response: No adverse reaction jm8 00:39 Drug: Zofran (Ondansetron) 4 mg Route: IVP; Site: right antecubital; jm8 01:23 Follow up: Response: No adverse reaction 8 :23 Drug: NS 0.9% 1000 ml Route: IV; Rate: 1 bolus; Site: right antecubital; jm8 02:45 Follow up: IV Status: Completed infusion jm8 :23 Drug: Aspirin 81 mg Route: PO; jm8 02:45 Follow up: Response: No adverse reaction 8 :23 Drug: NS 0.9% 1000 ml Route: IV; Rate: 1 bolus; Site: right antecubital; jm8 02:45 Follow up: IV Status: Completed infusion jm8 Disposition Summary: 12/15/20 01:52 Discharge Ordered Location: Home joanna Problem: new joanna Symptoms: have improved joanna Condition: Stable joanna Diagnosis - Heat exhaustion, unspecified joanna - Chest pain, unspecified joanna - Chest pain on breathing joanna - Dehydration joanna - Unspecified kidney failure - renal insufficency joanna Followup: joanna - With: Private Physician - When: 2 - 3 days - Reason: Recheck today's complaints, Continuance of care, Re-evaluation by your physician Followup: joanna - With: - When: 2 - 3 days - Reason: Recheck today's complaints, Re-evaluation by your physician Discharge Instructions: - Discharge Summary Sheet joanna - Nonspecific Chest Pain, Adult joanna - Chest Wall Pain, [id number] joanna - Nonspecific Chest Pain, Adult, [id number] joanna - Dehydration, Adult, [id number] joanna - Acute Kidney Injury, Adult joanna - Aspirin and Your Heart joanna - Rehydration, Adult joanna - Form - Return To Work ak2 Forms: - Medication Reconciliation Form joanna - Thank You Letter joanna - Antibiotic Education joanna - Prescription Opioid Use joanna Signatures: Dispatcher [employer] EDKoby Cazares MD MD cha Malcaba, Joseph RN RN Kimo Massey ak2 Corrections: (The following items were deleted from the chart) 01:01 00:26 Chest For PE Angio+CT.RAD.BRZ ordered. EDMS EDMS
--- NOTE | 2020-12-15 01:53 | ER ---
Nurse's Notes [facility] Name: Dannie Snell Age: 30 yrs Sex: Male : 1990 Arrival Date: 12/15/2020 Time: 00:03 Bed 3 Private MD: Diagnosis: Heat exhaustion, unspecified;Chest pain, unspecified;Chest pain on breathing;Dehydration;Unspecified kidney failure-renal insufficency Presentation: 12/15 00:32 Chief complaint: Patient states: SOB and cp x1 day. Coronavirus screen: Client denies ak2 travel out of the [place] in the last 14 days. At this time, the client does not indicate any symptoms associated with coronavirus-19. Ebola Screen: Patient negative for fever greater than or equal to 101.5 degrees Fahrenheit, and additional compatible Ebola Virus Disease symptoms Patient denies exposure to infectious person. Patient denies travel to an Ebola-affected area in the 21 days before illness onset. No symptoms or risks identified at this time. Initial Sepsis Screen: Does the patient meet any 2 criteria? No. Patient's initial sepsis screen is negative. Does the patient have a suspected source of infection? No. Patient's initial sepsis screen is negative. Risk Assessment: Do you want to hurt yourself or someone else? Patient reports no desire to harm self or others. Onset of symptoms was December 15, 2020. 00:32 Method Of Arrival: Ambulatory ak2 00:32 Acuity: YENI 3 ak2 Triage Assessment: 00:33 General: Appears in no apparent distress. Behavior is calm, cooperative. Pain: Denies ak2 pain. Neuro: No deficits noted. Cardiovascular: No deficits noted. Respiratory: Reports shortness of breath on exertion Onset: The symptoms/episode began/occurred today, the patient has mild shortness of breath. Historical: - Allergies: 00:33 No Known Allergies; ak2 - Immunization history:: Adult Immunizations up to date. - Social history:: Smoking status: unknown. - Family history:: not pertinent. Screenin:35 Abuse screen: Denies threats or abuse. Denies injuries from another. Nutritional ak2 screening: No deficits noted. Nutritional screening: No deficits noted. Fall Risk None identified. 00:35 Tuberculosis screening: No symptoms or risk factors identified. ak2 Assessment: 00:34 General: Appears in no apparent distress. Pain: Denies pain. Neuro: No deficits noted. ak2 Cardiovascular: No deficits noted. Rhythm is sinus rhythm. Respiratory: Airway is patent Respiratory effort is even, unlabored, Breath sounds are clear. Vital Signs: 00:32 BP 142 / 84; Pulse 97; Resp 18; Temp 98.6; Pulse Ox 100% ; ak2 02:49 BP 138 / 79; Pulse 96; Resp 16; Pulse Ox 100% on R/A; jm8 ED Course: 00:03 Patient arrived in ED. am4 00:23 Koby Ramirez MD is Attending Physician. joanna 00:33 Triage completed. ak2 00:33 Arm band placed on right wrist. EKG completed in triage. Results shown to MD. ak2 00:35 Patient has correct armband on for positive identification. ak2 00:35 No provider procedures requiring assistance completed. Inserted saline lock: 20 gauge ak2 in right antecubital area, using aseptic technique. 01:03 XRAY Chest (1 view) In Process Unspecified. EDMS 01:16 Thorax Wo Con In Process Unspecified. EDMS 01:52 Rio Larose MD is Referral Physician. joanna 02:44 IV discontinued, intact. jm8 Administered Medications: 00:39 Drug: NS 0.9% 1000 ml Route: IV; Rate: 1 bolus; Site: right antecubital; jm8 01:24 Follow up: IV Status: Completed infusion 8 00:39 Drug: morphine 2 mg Route: IVP; Site: right antecubital; jm8 01:24 Follow up: Response: No adverse reaction 8 00:39 Drug: Zofran (Ondansetron) 4 mg Route: IVP; Site: right antecubital; jm8 01:23 Follow up: Response: No adverse reaction 8 01:23 Drug: NS 0.9% 1000 ml Route: IV; Rate: 1 bolus; Site: right antecubital; jm8 02:45 Follow up: IV Status: Completed infusion 8 01:23 Drug: Aspirin 81 mg Route: PO; 8 02:45 Follow up: Response: No adverse reaction 8 01:23 Drug: NS 0.9% 1000 ml Route: IV; Rate: 1 bolus; Site: right antecubital; jm8 02:45 Follow up: IV Status: Completed infusion 8 Outcome: 01:52 Discharge ordered by . joanna 02:44 Discharged to home ambulatory, with family. donna 02:44 Condition: good 02:44 Discharge instructions given to patient, family, Instructed on discharge instructions, follow up and referral plans. Demonstrated understanding of instructions, follow-up care. 02:50 Patient left the ED. jm8 Signatures: Dispatcher [employer] EDKoby Cazares MD MD cha Martinez, Ashley am4 Malcaba, Joseph, RN RN jm8 Kimo Cline2
[2020-12-15 02:57] VITALS: TEMP 98.6; O2SAT 100
[2020-12-15 02:59] VITALS: BP 138/79
--- NOTE | 2020-12-15 07:42 | RAD REPORT ---
EXAM DESCRIPTION: RAD - Chest Single View - 12/15/2020 1:03 am CLINICAL HISTORY: CHEST PAIN COMPARISON: None TECHNIQUE: AP portable chest image was obtained 12/15/2020 1:03 am . FINDINGS: Lung volumes are low. No acute lung parenchymal process seen. Heart and vasculature are no rmal. No measurable pleural effusion and no pneumothorax. No acute bony abnormality seen. No acute ao rtic findings suspected. IMPRESSION: No acute cardiopulmonary process.
--- NOTE | 2020-12-15 12:39 | EKG ---
Test Date: 2020-12-15 Test Time: 00:24:10 Rail Car Loader: MEASUREMENT RESULTS: Intervals: Rate: 104 IA: 142 QRSD: 86 QT: 318 QTc: 418 [place]: P: 53 IA: 142 QRS: 49 T: 34 INTERPRETIVE STATEMENTS: Sinus tachycardia Voltage criteria for left ventricular hypertrophy Nonspecific T wave abnormality Abnormal ECG No previous ECG available for comparison Electronically Signed On 12-15-20 12:37:24 CDT by Rio Larose
--- NOTE | 2020-12-15 19:45 | RAD REPORT ---
EXAM DESCRIPTION: CT - Thorax Wo Josemanuel - 12/15/2020 6:53 am CLINICAL HISTORY: CHEST PAIN TECHNIQUE: Contiguous axial images obtained through the chest without IV contrast. Coronal and sagit aydin reformatted images provided. This exam was performed according to our departmental dose-optimization program, which includes autom ated exposure control, adjustment of the mA and/or kV according to patient size and/or use of iterati ve reconstruction technique. COMPARISON: No prior exams provided for comparison. FINDINGS: Lungs: No focal consolidation. Airways are patent. Pleura: No effusion. No pneumothorax. Heart and pericardium: The heart is normal in size. No pericardial effusion. Mediastinum and sara: No pathologically enlarged lymph nodes. Lower neck and chest wall: Unremarkable Vessels: Unremarkable Upper abdomen: Unremarkable Bones: Unremarkable IMPRESSION: No focal abnormality. Electronically signed by: Kei Chauhan MD 12/15/2020 1:46 AM CDT Due to temporary technical issues with the PACS/Fluency reporting system, reports are being signed by the in house radiologists without review as a courtesy to insure prompt reporting. The interpreting radiologist is fully responsible for the content of the report.
== END 2020-12-15 02:50 | disposition home or self-care (01) ==
LOC: ER 23:59
DX: E86.0 Dehydration (principal); T67.5XXA Heat exhaustion, unspecified, initial encounter; N28.9 Disorder of kidney and ureter, unspecified; R06.02 Shortness of breath; R07.9 Chest pain, unspecified
CPT/HCPCS: 96361; 93005; 85025; 80048; 36415; 83735; 82550; 85610; 80061; 85379; 80076; 81003; 84484; 82553; 83880; 80307; 71250; 71045; 96375; 96374; 99284; J2270; J7030 ×3; J2405

== ENCOUNTER 2021-12-14 07:35 | Emergency (ER) | payer OTHER ==
--- NOTE | 2021-12-14 09:10 | EDPHYS ---
Physician Documentation [facility] Name: Dannie Snell Age: 31 yrs Sex: Male : 1990 Arrival Date: 12/14/2021 Time: 07:40 Bed 12 Private MD: ARNAV Physician Koby Ramirez HPI: 12/14 09:09 This 31 yrs old Black Male presents to ER via Ambulatory with complaints of Rectal pm1 Pain, Hemorrhoids. 09:09 The patient presents to the emergency department with pain in the rectal area, that is pm1 moderate. Onset: The symptoms/episode began/occurred 1 week(s) ago. Context: the patient has no known special context relating to the rectal area complaint(s). Modifying factors: The symptoms are aggravated by sitting position, bowel movement and wiping after bowel movement. Associate signs and symptoms: Pertinent negatives: abdominal pain, constipation, vomiting. The patient has not experienced similar symptoms in the past. The patient has not recently seen a physician. 31-year-old male presenting to ER with complaints of rectal pain and possible hemorrhoids. Patient reports pain with sitting and with his bowel movements. Patient reports small amount of bright red blood with wiping. Historical: - Allergies: 07:53 No Known Allergies; tw2 - Home Meds: 07:53 None [Active]; tw2 - PMHx: 07:53 None; tw2 - PSHx: 07:53 None; tw2 - Immunization history:: Client reports receiving the 2nd dose of the Covid vaccine. - Social history:: Smoking status: Patient denies any tobacco usage or history of. ROS: 09:09 Constitutional: Negative for fever, chills, and weight loss, Cardiovascular: Negative pm1 for chest pain, palpitations, and edema, Respiratory: Negative for shortness of breath, cough, wheezing, and pleuritic chest pain, Abdomen/GI: Negative for abdominal pain, nausea, vomiting, diarrhea, and constipation, MS/Extremity: Negative for injury and deformity, Skin: Negative for injury, rash, and discoloration, Neuro: Negative for headache, weakness, numbness, tingling, and seizure. 09:09 All other systems are negative. Exam: 09:09 Constitutional: This is a well developed, well nourished patient who is awake, alert, pm1 and in no acute distress. Head/Face: Normocephalic, atraumatic. 09:09 Skin: Warm, dry with normal turgor. Normal color with no rashes, no lesions, and no evidence of cellulitis. MS/ Extremity: Pulses equal, no cyanosis. Neurovascular intact. Full, normal range of motion. 09:09 ENT: Exam is negative for acute changes, Mouth: no acute changes, Lips: normal, moist, Oral mucosa: normal, pink and intact, moist. 09:09 Neck: Exam negative for acute changes, ROM/movement: no acute changes. 09:09 Cardiovascular: Exam negative for acute changes, Rate: normal, Rhythm: regular, Pulses: no pulse deficits are appreciated. 09:09 Respiratory: Exam negative for acute changes. 09:09 Abdomen/GI: Inspection: abdomen appears normal, Palpation: abdomen is soft and non-tender, in all quadrants, Rectal exam: hemorrhoid(s), external, with associated bleeding, with pain, without thrombosis, Small tender 8 mm x 3 mm soft hemorrhoid externally present at 12 o'clock of anus, Bryanna RN as truck railroad and bus motor mechanic for examination. Patient's mother also present in the room and she wanted to see the hemorrhoid and it was shown to her. 09:09 Neuro: Exam negative for acute changes, Orientation: is normal, Mentation: is normal, Motor: moves all fours. Vital Signs: 07:51 BP 133 / 93; Pulse 83; Resp 17; Temp 97.9(TE); Pulse Ox 97% on R/A; Weight 74.84 kg tw2 (R); Height 5 ft. 5 in. (165.10 cm); Pain 9/10; 07:51 Body Mass Index 27.46 (74.84 kg, 165.10 cm) tw2 MDM: 07:49 Patient medically screened. [facility] 09:07 Data reviewed: vital signs. Data interpreted: Pulse oximetry: on room air is 97 %. pm1 Interpretation: normal. Counseling: I had a detailed discussion with the patient and/or guardian regarding: the historical points, exam findings, and any diagnostic results supporting the discharge/admit diagnosis, the need for outpatient follow up, a general surgeon, to return to the emergency department if symptoms worsen or persist or if there are any questions or concerns that arise at home. Administered Medications: 09:14 Drug: HYDROcodone-acetaminophen 5 mg-325 mg 1 tabs Route: PO; tw2 09:24 Follow up: Response: No adverse reaction; Pain is decreased; RASS: Alert and Calm (0) tw2 Disposition Summary: 12/14/21 09:09 Discharge Ordered Location: Home pm1 Problem: new pm1 Symptoms: have improved pm1 Condition: Stable pm1 Diagnosis - Unspecified hemorrhoids pm1 Followup: pm1 - With: Emergency Department - When: As needed - Reason: Worsening of condition Followup: pm1 - With: Private Physician - When: 2 - 3 days - Reason: Recheck today's complaints, Continuance of care, Re-evaluation by your physician Discharge Instructions: - High-Fiber Diet pm1 - Hemorrhoids pm1 - Discharge Summary Sheet tw2 Forms: - Work release form tw2 - Medication Reconciliation Form pm1 - Thank You Letter pm1 - Antibiotic Education pm1 - Prescription Opioid Use pm1 Prescriptions: - Colace 100 mg Oral Tablet - take 1 tablet by ORAL route every 12 hours; 14 tablet; Refills: 0, Product pm1 Selection Permitted - Anusol-HC 25 mg Rectal Suppository - insert 1 suppository by RECTAL route every 12 hours As needed; 20 suppository; pm1 Refills: 0, Product Selection Permitted - Tylenol-Codeine #3 300 mg-30 mg Oral - take 2 tablet by ORAL route every 6 hours As needed; 20 tablet; Refills: 0, pm1 Product Selection Permitted Signatures: Koby Ramirez MD MD cha Marinas, Patrick, NP MANAGER EMERGENCY pm1 Bryanna Corbin RN RN tw2
--- NOTE | 2021-12-14 09:10 | ER ---
Nurse's Notes [facility] Name: Dannie Snell Age: 31 yrs Sex: Male : 1990 Arrival Date: 12/14/2021 Time: 07:40 Bed 12 Private MD: Diagnosis: Unspecified hemorrhoids Presentation: 12/14 07:51 Chief complaint: Patient states: i am having blood when i wipe for about 1 week. its a tw2 smear of bright red blood, painful. i do lift heavy things at work. NO n/v/d or constipation. Coronavirus screen: At this time, the client does not indicate any symptoms associated with coronavirus-19. Ebola Screen: Patient denies travel to an Ebola-affected area in the 21 days before illness onset. Initial Sepsis Screen: Does the patient meet any 2 criteria? No. Patient's initial sepsis screen is negative. Does the patient have a suspected source of infection? No. Patient's initial sepsis screen is negative. Risk Assessment: Do you want to hurt yourself or someone else? Patient reports no desire to harm self or others. Onset of symptoms was December 14, 2021. 07:51 Method Of Arrival: Ambulatory tw2 07:51 Acuity: YENI 3 tw2 Triage Assessment: 07:53 General: Appears in no apparent distress. uncomfortable, well groomed, Behavior is tw2 calm, cooperative, appropriate for age. Pain: Complains of pain in rectum. Neuro: Level of Consciousness is awake, alert, obeys commands, Oriented to person, place, time, situation. Cardiovascular: Patient's skin is warm and dry. Respiratory: Airway is patent Respiratory effort is even, unlabored, Respiratory pattern is regular, symmetrical. GI: No signs and/or symptoms were reported involving the gastrointestinal system. Musculoskeletal: Range of motion: intact in all extremities. Historical: - Allergies: 07:53 No Known Allergies; tw2 - Home Meds: 07:53 None [Active]; tw2 - PMHx: 07:53 None; tw2 - PSHx: 07:53 None; tw2 - Immunization history:: Client reports receiving the 2nd dose of the Covid vaccine. - Social history:: Smoking status: Patient denies any tobacco usage or history of. Screenin:54 Abuse screen: Denies threats or abuse. Nutritional screening: No deficits noted. tw2 Tuberculosis screening: No symptoms or risk factors identified. Fall Risk None identified. Assessment: 07:54 Reassessment: see triage assessment. tw2 09:24 Reassessment: Patient appears in no apparent distress at this time. No changes from tw2 previously documented assessment. Patient and/or family updated on plan of care and expected duration. Pain level reassessed. Patient is alert, oriented x 3, equal unlabored respirations, skin warm/dry/pink. Vital Signs: 07:51 BP 133 / 93; Pulse 83; Resp 17; Temp 97.9(TE); Pulse Ox 97% on R/A; Weight 74.84 kg tw2 (R); Height 5 ft. 5 in. (165.10 cm); Pain 9/10; 07:51 Body Mass Index 27.46 (74.84 kg, 165.10 cm) tw2 ED Course: 07:40 Patient arrived in ED. am2 07:46 Bryanna Corbin, RN is Primary Nurse. tw2 07:46 Bed in low position. Call light in reach. Pulse ox on. NIBP on. Warm blanket given. tw2 07:49 Koby Ramirez MD is Attending Physician. joanna 07:53 Triage completed. tw2 07:53 Arm band placed on. tw2 08:38 Manpreet Mendoza NP is [facility]. pm1 08:58 Served as a health and fitness instructor during rectal exam. pts mother at bedside as well. Patient did tw2 not have IV access during this emergency room visit. Administered Medications: 09:14 Drug: HYDROcodone-acetaminophen 5 mg-325 mg 1 tabs Route: PO; tw2 09:24 Follow up: Response: No adverse reaction; Pain is decreased; RASS: Alert and Calm (0) tw2 Medication: 07:54 VIS not applicable for this client. tw2 Outcome: 09:09 Discharge ordered by . pm1 09:24 Discharged to home ambulatory, with family. tw2 09:24 Condition: stable 09:24 Discharge instructions given to patient, family, Instructed on discharge instructions, follow up and referral plans. no drinking with medication, no driving heavy equipment, medication usage, Demonstrated understanding of instructions, follow-up care, medications, Prescriptions given X 3. 09:24 Patient left the ED. tw2 Signatures: Koby Ramirez MD MD cha Marinas, Patrick BUNDLE COLLECTOR BUNDLE COLLECTOR pm1 Bryanna Corbin, CALLIE RN tw2 Magui Beltran [facility]
[2021-12-14] MEDS ORDERED: HYDROCODONE/APAP 5/325 MG TAB ONE (09:21)
[2021-12-14 09:31] VITALS: BP 133/93; TEMP 97.9; O2SAT 97
== END 2021-12-14 09:24 | disposition home or self-care (01) ==
LOC: ER 07:35
DX: K64.9 Unspecified hemorrhoids (principal)

== ENCOUNTER 2021-12-17 14:54 | Inpatient (IN) | payer OTHER ==
[2021-12-17] MEDS ORDERED: MORPHINE 4 MG/ML SYR ONE (16:41)
[2021-12-17] MEDS ORDERED: NA CHLORIDE 0.9% 1,000 ML ONE ×2 (16:42→18:19)
[2021-12-17] MEDS ORDERED: ONDANSETRON 4 MG/2 ML VIAL ONE (16:42)
[2021-12-17 16:51] LABS: Absolute Lymphocytes (CBC) 0.4 K/uL (0.7-4.9); Hematocrit 38.3 % (39.6-49.0); Lymphocytes % 12.5 % (15.3-44.8); MCV 77.1 fL (80-100); RBC Red Blood Cell Count 4.98 M/uL (4.33-5.43)
[2021-12-17 17:02] LABS: Albumin 3.2 g/dL (3.4-5.0); Bilirubin Total 0.9 mg/dL (0.2-1.0); Potassium 3.3 mmol/L (3.5-5.1); Protein, Total 9.9 g/dL (6.4-8.2)
--- NOTE | 2021-12-17 17:43 | RAD REPORT ---
EXAM DESCRIPTION: CT - Abdomen Pelvis W Contrast - 12/17/2021 5:20 pm CLINICAL HISTORY: rectal pain COMPARISON: <Comparisons> TECHNIQUE: Biphasic, helical CT imaging of the abdomen and pelvis was performed following 100 ml non -ionic IV contrast. Oral contrast was given. All CT scans are performed using dose optimization technique as appropriate and may include automated exposure control or mA/KV adjustment according to patient size. FINDINGS: No suspicious findings in the lung bases. The liver, spleen, and pancreas show no suspicious findings. Gallbladder and biliary tree are also wi thout suspicious finding. Symmetric renal function is seen with no hydronephrosis or suspicious renal mass. No pyelonephritis o r acute parenchymal process. No bladder abnormalities. No adrenal abnormalities. Stomach and small bowel show no abnormalities. From cecum through the mid rectum there are no signifi cant findings noted. Along the posterior wall of the distal most rectum there is a 4 x 3.5 x 3 centim eter lobulated air and fluid collection. This does appear to be a discrete collection along the poste rior rectal wall at the anus rather than normal intraluminal content in tortuous colon. Perirectal ab scess is the most likely etiology. No other abnormal fluid collection. Hinds of the rectum immediately proximal to the suspected abscess are thickened and edematous. No free air or pneumatosis. No mass or bulky lymphadenopathy. No herni a, mass or bulky lymphadenopathy. No suspicious bony findings. IMPRESSION: Abnormal 4 x 3.5 x 3 cm air and fluid collection along the posterior wall of the rectum at the anus. This is believed to be perirectal abscess and not normal content within lumen of tortuo us colon.
[2021-12-17 17:45] LABS: Platelet Estimate ADEQ; White Blood Cell Scan OK (OK)
[2021-12-17 17:46] LABS: Blood Morphology Comment NOT SEEN (NOT SEEN)
--- NOTE | 2021-12-17 18:13 | ER ---
Nurse's Notes [facility] Name: Dannie Snell Age: 31 yrs Sex: Male : 1990 Arrival Date: 12/17/2021 Time: 14:57 Bed 26 Private MD: Diagnosis: Perirectal Abscess Presentation: 12/17 15:15 Chief complaint: Patient's son or daughter states: Rectal pain that began a little over ss a week ago. Seen in the ER on Sunday and diagnosed with hemorrhoids. Coronavirus screen: Client denies travel out of the [place] in the last 14 days. Ebola Screen: Patient denies exposure to infectious person. Patient denies travel to an Ebola-affected area in the 21 days before illness onset. Initial Sepsis Screen: Does the patient meet any 2 criteria? No. Patient's initial sepsis screen is negative. Does the patient have a suspected source of infection? No. Patient's initial sepsis screen is negative. Risk Assessment: Do you want to hurt yourself or someone else? Patient reports no desire to harm self or others. Onset of symptoms was December 09, 2021. 15:15 Method Of Arrival: Ambulatory ss 15:15 Acuity: YENI 4 ss Historical: - Allergies: 15:16 No Known Allergies; ss - PMHx: 15:16 None; ss - PSHx: 15:16 None; ss - Immunization history:: Client reports receiving the 2nd dose of the Covid vaccine. - Social history:: Smoking status: Patient denies any tobacco usage or history of. Screenin:01 Abuse screen: Denies threats or abuse. Denies injuries from another. Nutritional jh6 screening: No deficits noted. Nutritional screening: No deficits noted. Tuberculosis screening: No symptoms or risk factors identified. Fall Risk None identified. Assessment: 16:40 General: Appears uncomfortable, Behavior is calm, cooperative. [facility] 16:40 Pain: Complains of pain in gluteal cleft Pain currently is 7 out of 10 on a pain scale. 6 Quality of pain is described as sharp, shooting, Pain began 2-3 days ago. Is continuous, Aggravated by increased activity, repositioning. GI: Reports hemorrhoids. 17:13 Reassessment: pt taken to ct at this time. 6 Vital Signs: 15:15 Resp 15; Weight 77.11 kg; Height 5 ft. 5 in. (165.10 cm); Pain 10/10; ss 15:17 BP 134 / 95; Pulse 120; Resp 16; Temp 98.6(TE); Pulse Ox 100% on R/A; ss 19:39 BP 115 / 62; Pulse 90; Resp 20; Temp 97.6; Pulse Ox 96% ; lc2 20:18 Pain 0/10; lc2 15:15 Body Mass Index 28.29 (77.11 kg, 165.10 cm) ED Course: 14:57 Patient arrived in ED. mr 15:16 Triage completed. ss 15:16 Arm band placed on right wrist. ss 15:18 Koby Barker PA is PHCP. cp 15:18 Koby Ramirez MD is Attending Physician. cp 16:14 Zayda Choi, RN is Primary Nurse. [facility] 16:40 Bed in low position. Call light in reach. Side rails up X2. Adult w/ patient. [facility] 16:40 Inserted saline lock: 20 gauge in right antecubital area, using aseptic technique. [facility] Blood collected. 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 [facility] 17:22 CT Abd/Pelvis - IV Contrast Only In Process Unspecified. EDMS 18:11 Derik Chakraborty MD is Hospitalizing Provider. cp Administered Medications: 16:50 Drug: NS 0.9% 1000 ml Route: IV; Rate: 1 bolus; Site: right antecubital; [facility] 16:50 Drug: Zofran (Ondansetron) 4 mg Route: IVP; Site: right antecubital; [facility] 16:50 Drug: morphine 4 mg Route: IVP; Infused Over: 4 mins; Site: right antecubital; [facility] 18:28 Follow up: Response: Pain is unchanged, physician notified [facility] 18:28 Drug: NS 0.9% 1000 ml Route: IV; Rate: 125 ml/hr; Site: right antecubital; [facility] 18:28 Drug: Potassium Effervescent Tablet 50 mEq Route: PO; [facility] 18:28 Drug: metroNIDAZOLE 500 mg Volume: 100 ml; Route: IVPB; Infused Over: 30 mins; Site: [facility] right antecubital; 18:37 Drug: Dilaudid (HYDROmorphone) 1 mg Route: IVP; Site: right antecubital; jh6 20:18 Follow up: Pain 0/10 Adult; Urine output 0 ml lc2 19:32 Drug: Cipro (ciprofloxacin) 400 mg Volume: 200 ml; Route: IVPB; Infused Over: 60 mins; lc2 Site: right antecubital; Delivery: Secondary tubing; 20:06 Follow up: IV Status: Completed infusion; IV Intake: 200ml lc2 Medication: 17:02 VIS not applicable for this client. 6 Intake: 20:06 IV: 200ml; Total: 200ml. lc2 Output: 20:18 Urine: 0ml; Total: 0ml. lc2 Outcome: 18:12 Decision to Hospitalize by Provider. cp 23:48 Patient left the ED. bb Signatures: Dispatcher [employer] [facility] Liliana Montgomery Brenda, RN RN bb Gillian Mosquera RN RN Lonnie Jackson RN RN 2 Koby Barker PA PA cp Hastedt, Jennifer RN RN jh6
--- NOTE | 2021-12-17 18:13 | EDPHYS ---
Physician Documentation [facility] Name: Dannie Snell Age: 31 yrs Sex: Male : 1990 Arrival Date: 12/17/2021 Time: 14:57 Bed 26 Private MD: ED Physician Koby Ramirez HPI: 12/17 16:00 This 31 yrs old Black Male presents to ER via Ambulatory with complaints of Hemorrhoids.cp 16:00 The patient presents to the emergency department with pain in the rectal area, that is cp severe. 16:00 Onset: The symptoms/episode began/occurred over 1 week ago. cp 16:00 Associate signs and symptoms: Pertinent negatives: abdominal pain, constipation, cp diarrhea, dysuria, fever, lower GI bleeding, vomiting. 16:00 Patient reports he was seen in this ED 3 days ago and diagnosed with hemorrhoids and cp prescribed cream. Patient reports worsening pain. Pain with bowel movements. Historical: - Allergies: 15:16 No Known Allergies; ss - PMHx: 15:16 None; ss - PSHx: 15:16 None; ss - Immunization history:: Client reports receiving the 2nd dose of the Covid vaccine. - Social history:: Smoking status: Patient denies any tobacco usage or history of. ROS: 16:05 Abdomen/GI: Positive for rectal pain. cp 16:05 Constitutional: Negative for body aches, chills, fever, poor PO intake. cp 16:05 Eyes: Negative for injury, pain, redness, and discharge. cp 16:05 ENT: Negative for drainage from ear(s), ear pain, sore throat, difficulty swallowing, difficulty handling secretions. 16:05 Cardiovascular: Negative for chest pain, palpitations. 16:05 Respiratory: Negative for cough, shortness of breath, wheezing. 16:05 Neuro: Negative for altered mental status, headache, weakness. 16:05 All other systems are negative. Exam: 16:10 Constitutional: The patient appears in no acute distress, alert, awake, non-toxic, well cp developed, well nourished, uncomfortable. 16:10 Head/Face: Normocephalic, atraumatic. cp 16:10 Eyes: Periorbital structures: appear normal, Conjunctiva: normal, no exudate, no injection, Sclera: no appreciated abnormality, Lids and lashes: appear normal, bilaterally. 16:10 ENT: External ear(s): are unremarkable, Nose: is normal, Mouth: Lips: moist, Oral mucosa: pink and intact, moist, Posterior pharynx: Airway: no evidence of obstruction, patent. 16:10 Chest/axilla: Inspection: normal. 16:10 Cardiovascular: Rate: tachycardic, Rhythm: regular. 16:10 Respiratory: the patient does not display signs of respiratory distress, Respirations: normal, no use of accessory muscles, no retractions, labored breathing, is not present, Breath sounds: are clear throughout, no decreased breath sounds, no stridor, no wheezing. 16:10 Abdomen/GI: Inspection: abdomen appears normal, Palpation: abdomen is soft and non-tender, in all quadrants. 16:10 Back: pain, is absent, ROM is normal. 16:10 : Rectal exam: Rectal tone: normal, pain with digital exam, external hemorrhoid tags noted. Vital Signs: 15:15 Resp 15; Weight 77.11 kg; Height 5 ft. 5 in. (165.10 cm); Pain 10/10; ss 15:17 BP 134 / 95; Pulse 120; Resp 16; Temp 98.6(TE); Pulse Ox 100% on R/A; ss 19:39 BP 115 / 62; Pulse 90; Resp 20; Temp 97.6; Pulse Ox 96% ; lc2 20:18 Pain 0/10; lc2 15:15 Body Mass Index 28.29 (77.11 kg, 165.10 cm) ss MDM: 15:44 Patient medically screened. cp 16:00 Differential diagnosis: hemorrhoids, fissure, abscess, pilonidal cyst, condyloma. cp 18:00 Physician consultation: Derik Chakraborty MD was called at 18:00, was contacted at 18:00, regarding patient's condition, will admit to DR Chakraborty for IV antibiotics for perirectal abscess. 18:00 Data reviewed: vital signs, nurses notes, lab test result(s), radiologic studies, CT cp scan. 18:00 Counseling: I had a detailed discussion with the patient and/or guardian regarding: the cp historical points, exam findings, and any diagnostic results supporting the discharge/admit diagnosis, lab results, radiology results, the need for further work-up and treatment in the hospital. 12/17 15:54 Order name: CBC with Diff; Complete Time: 17:56 12/17 17:34 Interpretation: Normal except: WBC 3.6; HGB 12.7; HCT 38.3; MCV 77.1; MCH 25.4; MPV cp 7.0; JOSHUA% 34.4; LYM% 12.5; MN% 52.5; NEUT A 1.2; LYMA 0.4; MNA 1.9. 12/17 15:54 Order name: CMP; Complete Time: 17:33 12/17 18:01 Interpretation: Normal except: NA 131; K 3.3; CL 96; GLUC 110; GFR 75; ALT 142; TP 9.9; cp ALB 3.2; GLOB 6.7; A/G 0.5. 12/17 15:54 Order name: Lipase; Complete Time: 17:33 12/17 16:55 Order name: CBC Smear Scan; Complete Time: 17:56 EDNY 12/17 18:14 Order name: COVID-19 SARS RT PCR (Document "Date of Onset" if Symptomatic) 12/17 20:29 Order name: Basic Metabolic Panel EDNY 12/17 16:50 Order name: CT Abd/Pelvis - IV Contrast Only; Complete Time: 17:56 12/17 17:57 Interpretation: Report reviewed. 12/17 15:54 Order name: IV Saline Lock; Complete Time: 17:00 12/17 15:54 Order name: Labs collected and sent; Complete Time: 17:00 12/17 20:29 Order name: NPO EDMS Administered Medications: 16:50 Drug: NS 0.9% 1000 ml Route: IV; Rate: 1 bolus; Site: right antecubital; 6 16:50 Drug: Zofran (Ondansetron) 4 mg Route: IVP; Site: right antecubital; 6 16:50 Drug: morphine 4 mg Route: IVP; Infused Over: 4 mins; Site: right antecubital; 6 18:28 Follow up: Response: Pain is unchanged, physician notified [facility] 18:28 Drug: NS 0.9% 1000 ml Route: IV; Rate: 125 ml/hr; Site: right antecubital; 6 18:28 Drug: Potassium Effervescent Tablet 50 mEq Route: PO; 6 18:28 Drug: metroNIDAZOLE 500 mg Volume: 100 ml; Route: IVPB; Infused Over: 30 mins; Site: 6 right antecubital; 18:37 Drug: Dilaudid (HYDROmorphone) 1 mg Route: IVP; Site: right antecubital; 6 20:18 Follow up: Pain 0/10 Adult; Urine output 0 ml 2 19:32 Drug: Cipro (ciprofloxacin) 400 mg Volume: 200 ml; Route: IVPB; Infused Over: 60 mins; 2 Site: right antecubital; Delivery: Secondary tubing; 20:06 Follow up: IV Status: Completed infusion; IV Intake: 200ml lc2 Disposition: 12/18 13:59 Co-signature as Attending Physician, Koby Ramirez MD I agree with the assessment and joanna plan of care. Disposition Summary: 12/17/21 18:12 Hospitalization Ordered Hospitalization Status: Inpatient Admission cp Provider: Derik Chakraborty [facility] cp Condition: Stable cp Problem: new cp Symptoms: have improved cp Bed/Room Type: Standard cp Room Assignment: 218(12/17/21 20:30) Diagnosis - Perirectal Abscess cp Forms: - Medication Reconciliation Form cp - SBAR form cp Signatures: Dispatcher [employer] EDMS Mirela Elliott RN RN Koby Ramirez MD MD cha Smirch, Shelby, RN CALLIE Lonnie Jackson RN RN 2 Koby Barker PA PA cp Hastedt, Jennifer RN RN jh6 Corrections: (The following items were deleted from the chart) 12/17 17:58 16:58 Abdomen/GI: Positive for rectal pain, cp cp 20:30 18:12 cp mw
[2021-12-17] MEDS ORDERED: METRONIDAZOLE 500mg IVPB 500 MG/100 ML BAG IV ONE (18:19)
[2021-12-17] MEDS ORDERED: CIPROFLOXACIN 400mg IV 400 MG/200 ML BAG IV ONE (18:19)
[2021-12-17] MEDS ORDERED: POTASSIUM 25 MEQ EFFERV TAB ONE (18:19)
[2021-12-17] MEDS ORDERED: HYDROMORPHONE HCL 1 MG/ML INJ ONE ×3 (18:42→23:15)
[2021-12-17] MEDS ORDERED: ONDANSETRON 4 MG/2 ML VIAL IV PRN (20:26)
[2021-12-17] MEDS ORDERED: ACETAMINOPHEN 500 MG TAB PO PRN (20:26)
[2021-12-17] MEDS: CIPROFLOXACIN 400mg IV 400 MG/200 ML BAG IV SCH (20:35)
[2021-12-17] MEDS: D5 0.45 NS 1,000 ML IV SCH (20:56)
[2021-12-17] MEDS: HYDROMORPHONE HCL 1 MG/ML INJ IV PRN ×2 (20:56→23:08)
[2021-12-17] MEDS ORDERED: D5 0.45 NS 1,000 ML IV ONE (21:00)
[2021-12-17 21:24] VITALS: BMI 28.3
[2021-12-18] MEDS: HYDROMORPHONE HCL 1 MG/ML INJ IV PRN ×3 (00:42→08:44)
[2021-12-18] MEDS: D5 0.45 NS 1,000 ML IV SCH ×2 (06:05→21:00)
[2021-12-18 06:39] LABS: Absolute Lymphocytes (CBC) 0.4 K/uL (0.7-4.9); Hematocrit 34.5 % (39.6-49.0); Lymphocytes % 13.3 % (15.3-44.8); MCV 76.5 fL (80-100); MPV 6.8 fL (7.6-11.3); RBC Red Blood Cell Count 4.51 M/uL (4.33-5.43)
[2021-12-18 06:50] LABS: Albumin 2.8 g/dL (3.4-5.0); Bilirubin Direct 0.5 mg/dL (0-0.2); Bilirubin Total 0.8 mg/dL (0.2-1.0); Potassium 3.4 mmol/L (3.5-5.1); Protein, Total 8.4 g/dL (6.4-8.2)
[2021-12-18] MEDS: CIPROFLOXACIN 400mg IV 400 MG/200 ML BAG IV SCH ×2 (08:44→20:43)
[2021-12-18 09:16] LABS: Anisocytosis SLIGHT; Blood Morphology Comment NOTED (NOT SEEN); Hypochromasia 1+; Platelet Estimate ADEQ; Toxic Granulation PRESENT
[2021-12-18] MEDS ORDERED: Ringers Lactate 1,000 ML IV ONE (10:22)
[2021-12-18] MEDS ORDERED: propofoL 200 MG/20 ML VIAL IV ONE (10:58)
[2021-12-18] MEDS ORDERED: LIDOCAINE 2% MPF 5 ML VIAL ONE (10:58)
[2021-12-18] MEDS ORDERED: FENTANYL CITR 100 MCG/2 ML ONE ×2 (10:59→11:41)
[2021-12-18] MEDS ORDERED: KETOROLAC 30 MG/ML INJ ONE (11:18)
[2021-12-18] MEDS ORDERED: dexAMETHasone 10 MG/ML VIAL ONE (11:18)
[2021-12-18] MEDS ORDERED: ONDANSETRON 4 MG/2 ML VIAL ONE (11:19)
--- NOTE | 2021-12-18 11:56 | P.BOP ---
Preoperative diagnosis: Perirectal abscess Postoperative diagnosis: same Primary procedure: EUA, anoscopy, rigid proctoscopy, Secondary procedure: Incision and drainage of complex perirectal abscess 4x4cm Estimated blood loss: <10cc Specimen: culture Findings: large perirectal abcess Anesthesia: General Complications: None Drain(s): Other (06/07" nugauze) Transferred to: Recovery Room Condition: Good
[2021-12-18 12:27] VITALS: O2SAT 100
[2021-12-18] MEDS: METRONIDAZOLE 500mg IVPB 500 MG/100 ML BAG IV SCH (18:36)
[2021-12-18] MEDS: ZOLPIDEM TARTRATE 5 MG TABLET PO PRN (21:27)
--- NOTE | 2021-12-18 22:24 | HP ---
Date of Admission: 12/17/2021 Reason For Service: Perianal/perirectal abscess. History Of Present Illness: This is the case of a 31-year-old patient, who comes to us with perianal pain. He thought he might have some hemorrhoid that has not improved for the last 2 to 3 days. The pain was so intense, he decided to come to the ER, diagnosed with perirectal abscess and a surgical consult was obtained. He denies any trauma, any dysuria, hematuria, hematochezia, or melena. Denies any recent traveling from another country. Denies any family member sick at home. Denies any bryan e in the bowel habits other than obviously now for pain and denies any constipation. Allergies: NONE. Past Medical History: None. Surgeries: None. Social History: He does smoke. He does not drink alcohol. Family History: Noncontributory. Review of Systems: Positive for perianal tenderness, erythema. He says he can barely sit. No fever. No chills. No sh ortness of breath. No chest pain. Review of systems 10 points is, otherwise, unremarkable. No vlad na. No hematochezia. Physical Examination: Vital Signs: Reviewed. General: The patient is awake and alert. HEENT: Pupils are equal and reactive. Anicteric. Neck: Supple. Chest: Clear. Heart: S1 and S2. Abdomen: Soft and depressible. No guarding or rebound. No peritoneal signs. Perianal area shows p osterior tenderness. I cannot pinpoint area of the origin of this on his own due to tenderness, so w e have to do an examination under anesthesia and we will get more information at that moment. I did not see this morning any prolapsed hemorrhoids, although I believe there are some hemorrhoids present and may be more than just that. I do not see any obvious fistulas at least at the physical examinat ion. We will address that issue a little more once we examine him under anesthesia. Neuro: Cranial nerves 2 through 12 grossly within normal limits. Extremities: Good capillary refill. Good peripheral pulses. Laboratory Data: WBC count of 3.6, hemoglobin of 12.7, and platelets of 380. Chloride is 96, potass ium 3.3. A CAT scan of abdomen and pelvis interpreted by Dr. Wood as abnormal, 4 x 3.5 cm air and fluid collection along the posterior wall of the rectum and the anus believed to be a perirectal abs cess. Assessment: It is a 31-year-old patient with perirectal abscess. The patient explained the need for antibiotics, the need also for examination under anesthesia, anoscopy, rigid proctoscopy, possible i ncision and drainage of perianal/perirectal abscess. Benefits, alternatives, and risks were fully ex plained, which include, but not limited to, infection, bleeding, damage to adjacent structures, anest hesia complication, recurrence, anal stricture and incontinence, bowel perforation, myocardial infarc tion, and even . He also understands this may involve a packing and wound care after the incide nt and it was important he take his antibiotics. 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 FAINA Voice ID: [id number]
--- NOTE | 2021-12-19 02:00 | OP ---
Date of Procedure: 12/18/2021 Surgeon: Derik Chakraborty MD Preoperative Diagnosis: Perirectal abscess, very tender. Postoperative Diagnosis: Perirectal abscess, very tender. Procedure: Examination under anesthesia, anoscopy, rigid proctoscopy, incision and drainage of compl ex perirectal abscess. Estimated Blood Loss: Less than 10 mL. Specimen: Culture. Findings: The patient has a large posterior perirectal abscess. When we inspected the area, there w as a small opening on the perianal region site, but there is about 0.5 cm opening on the distal part of the rectum already starting to drain the abscess. At this moment, it is unable to say if this inv olved the previous fistula or this is just to wait the perirectal abscess want to drain just at the a iza of the spinchter at its posterior and you can see the cavity itself. There is a large amount of pus coming from that area. The area was explored and cultured. Indication: This is a case of a 31-year-old patient complaining for few days of perianal pain. He t hought it was hemorrhoids until today. He could not take it anymore, so he came to the ER, diagnosed with perirectal abscess. The benefits, alternatives, and risks of EUA, anoscopy, rigid proctoscopy, incision and drainage of perirectal abscess were fully explained, which include, but not limited to, infection, bleeding, damage to adjacent structures as complication, anal stricture, anal incontinenc e, HI, and . He also understands this may not relieve any symptoms. He might need more than on e surgical intervention. He understood and signed the consent. Description Of Procedure: The patient was brought to the operating room and placed in supine positio n. Anesthesia was done without complication. The patient was placed in a lateral position with prop er protection. The area was prepped and draped in a sterile fashion. Rectal examination was done. Immediately, we noticed there was a posterior bulging not only in the distal rectum, but also in the perianal region. We already from the get go see an opening on the distal rectal area just above the dentate line and another opening on the perianal region just direct into the buttocks. It is unable for me to tell at this moment if this is just part of the abscess draining or this is just from a pre vious fistula. In fact, after that, we did a re-proctoscopy. We went up to about 13 cm. We cannot see any pathology in that area other than the one mentioned before in the distal rectum, but also, th ere was a large amount of stools present, so the evaluation is somehow limit. Then, after that, we p ut a sequential anoscope inside with a window on the side and that gave us a better visualization of the area. Definitely, we have pus draining from the distal rectum. There was an opening there above 0.5 cm leading to the abscess going right through the sphincters. Once we explored that area, we no ticed also that connect into that opening the patient has in the perianal region outside just going t owards the buttocks, so that area was opened once again and that allowed us a connection between the outside and the inside. Profuse irrigation was done. All the pus was obtained to culture until comp letely clean. Hemostasis was obtained. We were going to pack this from the perianal region, which i s the easier access at this moment to avoid gross stools going into this area, we approximated the an other leaving the cavity to drain outside through the buttocks as already trying to do. The area was packed with iodoform packing after irrigation was done. The area of anoderm was closely approximate d with 0 chromic. The patient tolerated the procedure well. Sponge count and instrument count were correct. The patient was sent to recovery in stable condition. This patient in the future may get a formal evaluation for Colorectal Surgery to looking for the possibility of him forming a fistula rick t may be the origin of all this abscess. At this moment, the evaluation is limited due to the amount of inflammation and pus present, but once this settled down, formal evaluation should be done by Col orectal. We advised him that. JONEL/QUIANA Voice ID: [id number] Report ID: [id number]
[2021-12-19] MEDS: METRONIDAZOLE 500mg IVPB 500 MG/100 ML BAG IV SCH ×2 (02:25→08:00)
[2021-12-19] MEDS: HYDROCODONE/APAP 5/325 MG TAB PO PRN ×5 (02:54→19:59)
[2021-12-19] MEDS: D5 0.45 NS 1,000 ML IV SCH ×3 (05:00→20:03)
[2021-12-19] MEDS: CIPROFLOXACIN 400mg IV 400 MG/200 ML BAG IV SCH (08:59)
--- NOTE | 2021-12-19 12:42 | PN ---
Date of Progress Note: 12/19/2021 Diagnosis: Perirectal abscess. Subjective: This is the case of a male, who comes to us with a large perirectal abscess, have to be done emergently yesterday. Packing was done in that area. He is requiring pain medications and IV a ntibiotics. Objective: Chest: Clear. Abdomen: Soft and depressible. : Perianal area, intact surgical site. Extremities: Good capillary refill. Plan: We still having to give him IV medications for pain control. Hopefully, by tomorrow, we can s witch him to p.o. medications, full liquid diet. Packing is Nu gauze quarter of an inch daily. We e xpect sending home tomorrow. The mother works in our operating room in the hospital and she is tryin g to find ways also how to help him with dressing changes. JONEL/QUIANA Voice ID: [id number] Report ID: [id number]
[2021-12-19] MEDS: metroNIDAZOLE 500 MG TABLET PO SCH ×2 (14:26→20:00)
[2021-12-19] MEDS: CIPROFLOXACIN HCL 500 MG TAB PO SCH (20:00)
[2021-12-19] MEDS: ZOLPIDEM TARTRATE 5 MG TABLET PO PRN (20:00)
[2021-12-20] MEDS: HYDROCODONE/APAP 5/325 MG TAB PO PRN ×3 (00:31→09:33)
[2021-12-20] MEDS: D5 0.45 NS 1,000 ML IV SCH ×2 (00:32→05:13)
[2021-12-20] MEDS: CIPROFLOXACIN HCL 500 MG TAB PO SCH (09:33)
[2021-12-20] MEDS: metroNIDAZOLE 500 MG TABLET PO SCH (09:34)
[2021-12-20] MEDS: HYDROMORPHONE HCL 1 MG/ML INJ IV PRN (11:37)
[2021-12-20 12:45] VITALS: BP 135/84; TEMP 97.4
--- OUTSIDE RECORDS SUMMARY | 2021-12-22 08:23 | XMS REPORT | Continuity of Care Document ---
:1990 Author Organization [facility] t Address [address] [place] [address] Care Team Providers Name Role Phone MICHELLE Attending Clinician Unavailable Lab, Fam Pob I Attending Clinician Unavailable Violane NATUROPATHIC ONCOLOGY PROVIDER Attending Clinician Payers Payer Name Policy Type Policy Number Effective Date Expiration Date S ource ALLIED BENEFIT [id number] 2019 00:00:00 Problems This patient has no known problems. Allergies, Adverse Reactions, Alerts Allergy Allergy Status Severity Reaction(s) Onset Inactive Treating Comm ents Source Name Type Date Date Clinician NO KNOWN Drug Active Univers ALLERGIE Class ity of [facility] Social History Social Habit Start Date Stop Date Quantity Comments Source [facility] to SARS-CoV-2 Not sure [facility] [place] (event) Medical Branch Smoking Status Start Date Stop Date Source Unknown if ever smoked [facility] Medications Ordered Filled Start Stop Current Ordering Indication Dosage Frequency Signature Comments Components Source Medication Medication Date Date Medication? Clinician (SIG) Name Name ibuprofen Yes 600mg Take 1 Unive rs (MOTRIN) 5-04 tablet by ity of 600 mg 00:00: mouth 3 [place] tablet 00 (three) Medical times Branch daily with meals. acetaminoph Yes 1{tbl} Take 1 Un elieser en-codeine 5-04 tablet by ity of (TYLENOL 00:00: mouth [place] #3) 300-30 00 every 4 Medica l mg tablet (four) Branch hours as needed for Pain unrelieved by non-narcot ic analgesics . Procedures This patient has no known procedures. Encounters Start End Encounter Admission Attending Care Care Encounter Source Date/Time Date/Time Type Type Clinicians Facility Department ID 2020-01-01 2020-01-01 Outpatient R MICHELLE [facility] [id number] Univers 16:20:00 16:20:00 DAMON rosen [facility] 2020-01-01 2020-01-01 Laboratory Lab, [facility] Fam Pob I [facility] 1.2. [id number] Univers 15:46:10 16:06:10 Only Damon Monique [facility] [id number] ity of [place] [id number] Hai as Professio [phone] Ca dical [address] Office [address] 2020-01-01 2020-01-01 Laboratory Lab, [facility] [id number] 15:46:10 16:06:10 Only [facility] Pob I Health [id number] [place] [id number] Professio [phone] nal [facility] Office Building [address] 2019-12-31 2019-12-31 Outpatient R MICHELLE [facility] [id number] Univers 16:20:00 16:20:00 DAMON garfield [facility] Results This patient has no known results.
--- NOTE | 2021-12-26 21:53 | P.DS ---
Admission Date: 12/17/21 Discharge Date: 12/26/21 Disposition: ROUTINE DISCHARGE Discharge Condition: GOOD Reason for Admission: Perirectal abscess Procedures: I &D perirectal abscess Vital Signs/Physical Exam: Temp Pulse Resp BP Pulse Ox 97.4 F 73 18 135/84 100 12/20/21 12:00 12/20/21 12:00 12/20/21 12:00 12/20/21 12:00 12/20/21 12:00 General: Alert, In no apparent distress, Oriented x3, Cooperative HEENT: Normocephalic, PERRLA Neck: Supple Respiratory: Normal air movement Cardiovascular: No edema, Normal pulses Gastrointestinal: Soft and benign, No rebound, No guarding Integumentary: No rashes, No cyanosis Rectal: Tenderness (intact surgical site) Laboratory Data at Discharge: WBC 3.2 K/uL (4.3-10.9) L 12/18/21 06:19 Hgb 11.7 g/dL (13.6-17.9) L 12/18/21 06:19 Hct 34.5 % (39.6-49.0) L 12/18/21 06:19 Plt Count 345 K/uL (152-406) 12/18/21 06:19 Sodium 134 mmol/L (136-145) L 12/18/21 06:19 Potassium 3.4 mmol/L (3.5-5.1) L 12/18/21 06:19 BUN 12 mg/dL (7-18) 12/18/21 06:19 Creatinine 1.13 mg/dL (0.55-1.3) 12/18/21 06:19 Glucose 136 mg/dL (74-106) H 12/18/21 06:19 Total Bilirubin 0.8 mg/dL (0.2-1.0) 12/18/21 06:19 AST 16 U/L (15-37) 12/18/21 06:19 ALT 100 U/L (12-78) H 12/18/21 06:19 Alkaline Phosphatase 52 U/L (45-117) 12/18/21 06:19 Lipase 65 U/L (73-393) L 12/18/21 06:19 Home Medications: NK [No Home Meds] 12/17/21 Physician Discharge Instructions: 06/07" nugauze packing daily May take a shower with dressing off Diet: [place] Activity: No lifting more than 10 lbs Followup: Derik Chakraborty MD [ACTIVE - CAN ADMIT] - 1 Week NONE,NONE [Primary Care Provider] -
== END 2021-12-20 13:51 | disposition home or self-care (01) | DRG 395 ==
LOC: ER 14:54 → ERHOLD 20:28 → 2ND 23:48
PROVIDERS: ADMIT Surgery; ATTEND Surgery
PROC: 0D9P8ZX Drainage of Rectum, Via Natural or Artificial Opening Endoscopic, Diagnostic (ICD-10-PCS; 2021-12-18)
PROC: 0DJD8ZZ Inspection of Lower Intestinal Tract, Via Natural or Artificial Opening Endoscopic (ICD-10-PCS; principal; 2021-12-18 11:00)
DX: K61.1 Rectal abscess (principal); Z20.822 Contact with and (suspected) exposure to COVID-19
CPT/HCPCS: 36415; 74177; 80048; 80053; 80076; 83690; 85025; 87070; 87075; 87077; 87186; 87205; 94010; 96365; 96375; 99284; J0744; J1100; J1170; J2405; J2704; J3010; J3490; J7030; J7120; J7799; Q9967; U0003

== ENCOUNTER 2022-02-17 08:08 | Emergency (ER) | payer OTHER ==
--- OUTSIDE RECORDS SUMMARY | 2022-02-17 08:11 | XMS REPORT | Continuity of Care Document ---
:1990 Author Organization [facility] t Address [address] [place] [address] Care Team Providers Name Role Phone Asked, No Pcp Primary Care Physician Unavailable DAMON MARTINEZ Attending Clinician Unavailable Lab, Adc Fam Pob I Attending Clinician Unavailable Damon Smith Attending Clinician Payers Payer Name Policy Type Policy Number Effective Date Expiration Date S brian ALLIED BENEFIT [id number] 2019 00:00:00 Problems Condition Condition Condition Status Onset Resolution Last Treating Co mments Source Name Details Category Date Date Treatment Clinician Date No known No known Disease Metho di active active st problems problems Hospit [facility] l Allergies, Adverse Reactions, Alerts Allergy Allergy Status Severity Reaction(s) Onset Inactive Treating Comm ents Source Name Type Date Date Clinician NO KNOWN Drug Active Univers ALLERGIE Class ity of S [facility] Family History Family Member Diagnosis Comments Start Date Stop Date Source Natural father No Known Problems Met [facility] Natural mother No Known Problems Met [facility] Social History Social Habit Start Date Stop Date Quantity Comments Source Exposure to Not sure University SARS-CoV-2 [facility] (event) [facility] Alcohol intake 2016-02-16 2016-02-16 Current [facility] 00:00:00 00:00:00 non-drinker of alcohol (finding) Sex Ass[birth year] At [birth year] [facility] 00:00:00 00:00:00 Smoking Status Start Date Stop Date Source Unknown if ever smoked Universit y of [facility] Never smoked [facility] Medications Ordered Filled Start Stop Current Ordering Indication Dosage Frequency Signature Comments Components Source Medication Medication Date Date Medication? Clinician (SIG) Name Name No known No No known Metho di medications 9-[address] 09:45: [facility] 23 l ibuprofen Yes 600mg Take 1 Unive rs (MOTRIN) 5-04 tablet by ity of 600 mg 00:00: mouth 3 [place] tablet 00 (three) Medical times [place] daily with meals. acetaminoph Yes 1{tbl} Take 1 Un elieser en-codeine 5-04 tablet by ity of (TYLENOL 00:00: mouth [place] #3) 300-30 00 every 4 Medica l mg tablet (four) Branch hours as needed for Pain unrelieved by non-narcot ic analgesics . Procedures This patient has no known procedures. Plan of Care Planned Activity Planned Date Details Comments Source Future Scheduled 2022-02-03 [facility] 02:06[facility]23 (#1) [code = COVID-19 VACCINE (#1)] Future Scheduled 2022-02-03 INFLUENZA VACCINE [facility] Test 02:06:23 [code = INFLUENZA VACCINE] Future Scheduled 2022-02-03 HEPATITIS B [facility] 02:06:23 VACCINES (1 of 3 - 3-dose series) [code = HEPATITIS B VACCINES (1 of 3 - 3-dose series)] Encounters Start End Encounter Admission Attending Care Care Encounter Source Date/Time Date/Time Type Type Clinicians Facility Department ID 2020-01-01 2020-01-01 Outpatient R MICHELLE [facility] [id number] Univers 16:20:00 16:20:00 DAMON ity of [facility] 2020-01-01 2020-01-01 Laboratory Lab, [facility] Fam Pob I [facility] 1.2. [id number] Univers 15:46:10 16:06:10 Only Damon Martinez [facility] [id number] ity of [place] [id number] Hai as Professio [phone] Sd dical nal [address] 2020-01-01 2020-01-01 Laboratory Lab, Adc [facility] [id number] 15:46:10 16:06:10 Only Fam Pob I [facility] [id number] [place] [id number] [place] [phone] nal [address] 2019-12-31 2019-12-31 Outpatient Yaakov MARTINEZ, [facility] [id number] Univers 16:20:00 16:20:00 DAMON rosen [facility] Results This patient has no known results.
[2022-02-17] MEDS ORDERED: MORPHINE 4 MG/ML SYR ONE (08:52)
[2022-02-17] MEDS ORDERED: ONDANSETRON 4 MG/2 ML VIAL ONE (08:53)
[2022-02-17 09:07] LABS: Absolute Lymphocytes (CBC) 0.5 K/uL (0.7-4.9); Lymphocytes % 20.5 % (15.3-44.8); MCV 74.6 fL (80-100); MPV 7.4 fL (7.6-11.3); RBC Red Blood Cell Count 5.23 M/uL (4.33-5.43)
[2022-02-17 09:22] LABS: Albumin 3.8 g/dL (3.4-5.0); Bilirubin Total 0.7 mg/dL (0.2-1.0); Potassium 3.4 mmol/L (3.5-5.1); Protein, Total 9.8 g/dL (6.4-8.2)
--- NOTE | 2022-02-17 10:05 | RAD REPORT ---
EXAM DESCRIPTION: CT - Pelvis W/Cont - 02/17/2022 9:56 am CLINICAL HISTORY: rectal pain, history of perianal abscess removal December 18 with persistent pain COMPARISON: No comparisons TECHNIQUE: Axial 5 millimeter thick images of the pelvis were obtained following nonionic IV contras t administration. Imaging was acquired with the patient in a prone position. FINDINGS: No residual or recurrent abscess or mass seen in the perianal region. No abnormal infectio us or inflammatory type stranding extending into the pelvic floor. No air in the soft tissues. In the peritoneal and retroperitoneal spaces of the pelvis no abnormal fluid or air collection. Bowel is unremarkable. No urinary bladder abnormality. IMPRESSION: No residual or recurrent perianal abscess, inflammatory stranding or unexpected finding.
--- NOTE | 2022-02-17 10:39 | ER ---
Nurse's Notes [facility] Name: Dannie Snell Age: 31 yrs Sex: Male : 1990 Arrival Date: 02/17/2022 Time: 08:09 Bed 10 Private MD: Diagnosis: Rectal Pain Presentation: 02/17 08:23 Chief complaint: Patient states: had a perianal abscess and had surgery on December [address] Chakraborty, has been having pain since then, it hurts when he's at work, he stands, walks a lot, can't sleep due to the pain, last saw Dr. Chakraborty last Sunday and was told it was healing and that the pain was normal, uses lidocaine gel bot only lasts 30 minutes. 08:23 Acuity: YENI 3 iw 08:51 Coronavirus screen: Vaccine status: Client denies travel out of the [place] in the last 14 ll1 days. At this time, the client does not indicate any symptoms associated with coronavirus-19. Ebola Screen: Patient denies travel to an Ebola-affected area in the 21 days before illness onset. Initial Sepsis Screen: Does the patient meet any 2 criteria? No. Patient's initial sepsis screen is negative. Does the patient have a suspected source of infection? Yes: Skin breakdown/wound. Risk Assessment: Do you want to hurt yourself or someone else? Patient reports no desire to harm self or others. Onset of symptoms was December 15, 2021. 08:51 Method Of Arrival: Ambulatory ll1 Historical: - Allergies: 08:28 No Known Allergies; iw - Home Meds: 08:28 None [Active]; iw - PMHx: 08:28 None; iw - Immunization history:: Adult Immunizations up to date. - Social history:: Smoking status: Patient denies any tobacco usage or history of. Screenin:29 Abuse screen: Denies threats or abuse. Denies injuries from another. Nutritional iw screening: No deficits noted. Tuberculosis screening: No symptoms or risk factors identified. 08:52 Fall Risk IV access (20 points). Total Munoz Fall Scale indicates No Risk (0-24 pts). ll1 Assessment: 08:28 General: Appears in no apparent distress. Behavior is calm, cooperative. Pain:. Neuro: iw Level of Consciousness is awake, alert, obeys commands, Oriented to person, place, time, situation, Moves all extremities. Full function. Cardiovascular: Patient's skin is warm and dry. Respiratory: Respiratory effort is even, unlabored, Respiratory pattern is regular. Musculoskeletal: Range of motion: intact in all extremities. 08:51 Reassessment: No changes from previously documented assessment. Patient and/or family ll1 updated on plan of care and expected duration. Pain level reassessed. Patient is alert, oriented x 3, equal unlabored respirations, skin warm/dry/pink. 09:34 Reassessment: No changes from previously documented assessment. Patient and/or family ll1 updated on plan of care and expected duration. Pain level reassessed. Patient is alert, oriented x 3, equal unlabored respirations, skin warm/dry/pink. pain is better. 10:40 Reassessment: No changes from previously documented assessment. Patient and/or family ll1 updated on plan of care and expected duration. Pain level reassessed. Patient is alert, oriented x 3, equal unlabored respirations, skin warm/dry/pink. Patient states feeling better. Vital Signs: 08:49 BP 118 / 75; Pulse 89; Resp 16; Temp 98.0; Pulse Ox 100% on R/A; iw 10:47 BP 112 / 70; Pulse 92; Resp 16; Pulse Ox 100% ; ll1 ED Course: 08:09 Patient arrived in ED. am2 08:09 Paddy Betancourt PA is PHCP. jmm 08:09 Conrado Patterson MD is Attending Physician. jmm 08:21 Arm band placed on Patient placed in an exam room, on a stretcher. ll1 08:27 Triage completed. iw 08:28 Virginia Olea, CALLIE is Primary Nurse. iw 08:35 Inserted saline lock: 20 gauge in right antecubital area, using aseptic technique. ll1 Blood collected. 09:00 Patient has correct armband on for positive identification. Bed in low position. Call ll1 light in reach. Side rails up X 1. Cardiac monitoring not applicable on this patient. 09:58 CT Pelvis w cont In Process Unspecified. EDMS 10:47 No provider procedures requiring assistance completed. IV discontinued, intact, ll1 bleeding controlled, No redness/swelling at site. Pressure dressing applied. Administered Medications: 08:50 Drug: morphine 4 mg Route: IVP; Infused Over: 4 mins; Site: right antecubital; 1 09:35 Follow up: Response: No adverse reaction; Pain is decreased; RASS: Alert and Calm (0) 1 08:50 Drug: Zofran (Ondansetron) 4 mg Route: IVP; Site: right antecubital; ll1 09:35 Follow up: Response: No adverse reaction 1 Medication: 08:34 VIS not applicable for this client. iw Outcome: 10:38 Discharge ordered by . uzair 10:47 Discharged to home ambulatory. 1 10:47 Condition: stable 10:47 Discharge instructions given to patient, Instructed on discharge instructions, follow up and referral plans. medication usage, Demonstrated understanding of instructions, follow-up care, medications, Prescriptions given X 3. 10:48 Patient left the ED. 1 Signatures: Dispatcher [employer] EDMS Paddy Betancourt PA PA jmm Williams, Irene, RN RN iw Moreno, Amanda am2 Lewis, Lynsay, RN RN 1
--- NOTE | 2022-02-17 10:39 | EDPHYS ---
Physician Documentation [facility] Name: Dannie Snell Age: 31 yrs Sex: Male : 1990 Arrival Date: 02/17/2022 Time: 08:09 Bed 10 Private MD: ED Physician Conrado Patterson HPI: 02/17 08:21 This 31 yrs old Black Male presents to ER via Ambulatory with complaints of Abscess. jmm 08:21 Onset: The symptoms/episode began/occurred gradually, 2 month(s) ago. Possible jmm cause(s): unknown. 31-year-old male with no chronic medical conditions presents emerged department with complaints of ongoing rectal pain. Patient had a perirectal abscess drained approximately 2 months ago and still has pain. Denies purulent drainage, fever. Historical: - Allergies: 08:28 No Known Allergies; iw - Home Meds: 08:28 None [Active]; iw - PMHx: 08:28 None; iw - Immunization history:: Adult Immunizations up to date. - Social history:: Smoking status: Patient denies any tobacco usage or history of. ROS: 08:21 Constitutional: Negative for fever, chills, and weight loss, Cardiovascular: Negative jmm for chest pain, palpitations, and edema, Respiratory: Negative for shortness of breath, cough, wheezing, and pleuritic chest pain. 08:21 : Negative for injury, bleeding, discharge, and swelling, MS/Extremity: Negative for injury and deformity, Skin: Negative for injury, rash, and discoloration. 08:21 Abdomen/GI: Positive for rectal pain. 08:21 : 08:21 All other systems are negative. Exam: 08:21 Constitutional: This is a well developed, well nourished patient who is awake, alert, jmm and in no acute distress. Head/Face: atraumatic. Eyes: EOMI, no conjunctival erythema appreciated ENT: Moist Mucus Membranes Neck: Trachea midline, Supple Chest/axilla: Normal chest wall appearance and motion. Cardiovascular: Regular rate and rhythm. No edema appreciated Respiratory: Normal respirations, no respiratory distress appreciated 08:21 Back: Normal ROM Skin: General appearance color normal MS/ Extremity: Moves all extremities, no obvious deformities appreciated, no edema noted to the lower extremities Neuro: Awake and alert Psych: Behavior is normal, Mood is normal, Patient is cooperative and pleasant 08:21 Abdomen/GI: Rectal exam: tenderness, that is mild, anal fissure. Vital Signs: 08:49 BP 118 / 75; Pulse 89; Resp 16; Temp 98.0; Pulse Ox 100% on R/A; iw 10:47 BP 112 / 70; Pulse 92; Resp 16; Pulse Ox 100% ; ll1 MDM: 08:21 Patient medically screened. [facility] 10:37 Data reviewed: vital signs, nurses notes. Counseling: I had a detailed discussion with [facility] the patient and/or guardian regarding: the historical points, exam findings, and any diagnostic results supporting the discharge/admit diagnosis, lab results, radiology results, the need for outpatient follow up, to return to the emergency department if symptoms worsen or persist or if there are any questions or concerns that arise at home. ED course: FLOORPERSON aware reviewed. No opioid rx since 12/26/2021. 02/17 08:24 Order name: CBC with Diff [facility] 02/17 08:24 Order name: CMP; Complete Time: 09:37 [facility] 02/17 08:24 Order name: Lipase; Complete Time: 09:37 [facility] 02/17 08:24 Order name: CT Pelvis w cont; Complete Time: 10:06 [facility] 02/17 08:24 Order name: IV Saline Lock; Complete Time: 08:28 [facility] 02/17 08:24 Order name: Labs collected and sent; Complete Time: 08:28 [facility] Administered Medications: 08:50 Drug: morphine 4 mg Route: IVP; Infused Over: 4 mins; Site: right antecubital; ll1 09:35 Follow up: Response: No adverse reaction; Pain is decreased; RASS: Alert and Calm (0) ll1 08:50 Drug: Zofran (Ondansetron) 4 mg Route: IVP; Site: right antecubital; ll1 09:35 Follow up: Response: No adverse reaction ll1 Disposition: 17:56 Co-signature as Attending Physician, Conrado Patterson MD I agree with the assessment and kdr plan of care. Disposition Summary: 02/17/22 10:38 Discharge Ordered Location: Home [facility] Condition: Stable [facility] Diagnosis - Rectal Pain [facility] Followup: [facility] - With: Private Physician - When: 2 - 3 days - Reason: Recheck today's complaints, Continuance of care, Re-evaluation by your physician Discharge Instructions: - Anal Fissure, Adult [facility] - Discharge Summary Sheet kr3 Forms: - Medication Reconciliation Form m - Work release form kr3 - Thank You Letter [facility] - Antibiotic Education [facility] - Prescription Opioid Use [facility] Prescriptions: - Colace 100 mg Oral Tablet - take 1 tablet by ORAL route every 12 hours; 14 tablet; Refills: 0, Product [facility] Selection Permitted - Ultracet 37.5-325 mg Oral Tablet - take 1 tablet by ORAL route every 6 hours - for up to 5 days; do not exceed 8 jmm tablets per day.; 30 tablet; Refills: 0, Product Selection Permitted - Anusol-HC 2.5 % Topical cream with perineal applicator - apply 1 application by TOPICAL route 2 times per day; 1 tube; Refills: 0, jmm Product Selection Permitted Signatures: Dispatcher [employer] Conrado Bedolla MD MD kdr Mickail, Joel, PA PA jmm Williams, Irene, Ellyn Velázquez RN, RN RN ll1
[2022-02-17 12:45] LABS: Blood Morphology Comment NOTED (NOT SEEN); Platelet Estimate ADEQ
[2022-02-18 16:59] VITALS: O2SAT 100
[2022-02-18 17:06] VITALS: BP 118/75; TEMP 98
== END 2022-02-17 10:48 | disposition home or self-care (01) ==
LOC: ER 08:08
DX: K62.89 Other specified diseases of anus and rectum (principal)
CPT/HCPCS: 85025; 36415; 83690; 80053; 72193; 96375; 96374; 99284; Q9967; J2405

== ENCOUNTER 2022-03-31 09:09 | Emergency (ER) | payer OTHER ==
--- OUTSIDE RECORDS SUMMARY | 2022-03-31 09:12 | XMS REPORT | Continuity of Care Document ---
:1990 Author Organization [facility] t Address [address] [place] [address] Care Team Providers Name Role Phone Asked, No Pcp Primary Care Physician Unavailable DAMON MARTINEZ Attending Clinician Unavailable Lab, Adc Fam Pob I Attending Clinician Unavailable Damon Smith Attending Clinician Payers Payer Name Policy Type Policy Number Effective Date Expiration Date S elisace ALLIED BENEFIT [id number] 2019 00:00:00 Problems Condition Condition Condition Status [...] ALLERGIE Class ity of S [facility] Family History Family Member Diagnosis Comments Start Date Stop Date Source Natural father No Known Problems Met [facility] Natural mother No Known Problems Met [facility] Social History Social Habit Start Date Stop Date Quantity Comments Source Exposure to Not sure University SARS-CoV-2 [facility] (event) [place] Alcohol intake 2016-02-16 2016-02-16 Current [facility] 00:00:00 00:00:00 non-drinker of alcohol (finding) Sex Ass[birth year] At [birth year] [facility] 00:00:00 00:00:00 Smoking Status Start Date Stop Date Source Unknown if ever smoked [facility] Never smoked tobacco [facility] Medications Ordered Filled Start Stop Current Ordering Indication Dosage Frequency Signature Comments Components Source Medication Medication Date Date Medication? Clinician (SIG) Name Name No known No No known Metho di medications 9-[address] 09:45: [facility] No known No No known Metho di [...] Comments Source Future Scheduled 2022-02-03 COVID-[address] [facility] Test 02:06:23 (#1) [code = COVID-19 VACCINE (#1)] Future Scheduled 2022-02-03 INFLUENZA VACCINE Method [facility] Test 02:06:23 [code = INFLUENZA VACCINE] Future Scheduled 2022-02-03 HEPATITIS B [facility] Test 02:06:23 VACCINES (1 of 3 - 3-dose series) [code = HEPATITIS B VACCINES (1 of 3 - 3-dose series)] Future Scheduled 2022-02-03 INFLUENZA VACCINE Method [facility] Test 02:06:23 [code = INFLUENZA VACCINE] Future Scheduled 2022-02-03 [facility]ITIS [facility] Test 02:06:23 VACCINES (1 of 3 - 3-dose series) [code = HEPATITIS B VACCINES (1 of 3 - 3-dose series)] Future Scheduled 2022-02-03 COVID-[address] [facility] Test 02:06:23 (#1) [code = COVID-19 VACCINE (#1)] Encounters Start End Encounter Admission Attending Care Care Encounter Source Date/Time Date/Time Type Type Clinicians Facility Department ID 2020-01-01 2020-01-01 Outpatient R MICHELLE [facility] [id number] Univers 16:20:00 16:20:00 DAMON rosen [facility] 2020-01-01 2020-01-01 Laboratory Lab, [facility] [id number] 15:46:10 16:06:10 Only Fam Pob I Health [id number] [place] [id number] Professio [phone] [place] [address] [address] 2020-01-01 2020-01-01 Laboratory Lab, [facility] Fam Pob I [facility] [id number] Univers 15:46:10 16:06:10 Only Renetta [facility] Health [id number] [facility]y of [place] [id number] Hai as Professio [phone] Dc dical [address] 2019-12-31 2019-12-31 Outpatient Yaakov MARTINEZ [facility] [id number] Univers 16:20:00 16:20:00 DAMON rosen [facility] Results This patient has no known results.
[2022-03-31] MEDS ORDERED: KETOROLAC 30 MG/ML INJ ONE (09:32)
--- NOTE | 2022-03-31 09:40 | EDPHYS ---
Physician Documentation [facility] Name: Dannie Snell Age: 31 yrs Sex: Male : 1990 Arrival Date: 03/31/2022 Time: 09:10 Bed 12 Private MD: ED Physician [place] HPI: 03/31 10:12 This 31 yrs old Black Male presents to ER via Unassigned with complaints of Rectal pain.ms3 10:12 31-year-old male presents for rectal pain that began in December after perirectal abscess ms3 surgery by Dr. Chakraborty. Patient states he last saw Dr. Chakraborty 3 weeks ago and was discharged from his care at that time. Patient states he took Tylenol and Aleve without alleviation of his symptoms. Patient denies alleviating or inciting factors. Patient states in the past he was given prescriptions for tramadol. Patient denies redness, fevers, chills. Historical: - Allergies: 09:30 No Known Allergies; jl7 - Home Meds: 09:30 None [Active]; jl7 - PMHx: 09:30 None; jl7 - PSHx: 09:30 None; jl7 - Immunization history:: Client reports receiving the 2nd dose of the Covid vaccine. - Social history:: Smoking status: Reported history of juuling and/or vaping. ROS: 10:12 Constitutional: Negative for fever, and chills. Neck: Negative for injury, pain, and ms3 swelling, Cardiovascular: Negative for chest pain, and palpitations. Respiratory: Negative for shortness of breath, cough, wheezing, and pleuritic chest pain, Abdomen/GI: Negative for abdominal pain, nausea, vomiting, diarrhea, and constipation, MS/Extremity: Negative for injury and deformity, Neuro: Negative for headache, weakness, numbness, tingling. 10:12 All other systems are negative. Exam: 10:12 Constitutional: This is a well developed, well nourished patient who is awake, alert, ms3 and in no acute distress. Head/Face: Normocephalic, atraumatic. Neck: Trachea midline, no cervical lymphadenopathy. Supple, full range of motion without nuchal rigidity, or vertebral point tenderness. No Meningismus. Chest/axilla: Normal chest wall appearance and motion. Nontender with no deformity. Cardiovascular: Regular rate and rhythm with a normal S1 and S2. No gallops, murmurs, or rubs. Normal PMI, no JVD. No pulse deficits. Respiratory: Lungs have equal breath sounds bilaterally, clear to auscultation and percussion. No rales, rhonchi or wheezes noted. No increased work of breathing, no retractions or nasal flaring. Skin: Warm, dry with normal turgor. Normal color with no rashes, no lesions, and no evidence of cellulitis. MS/ Extremity: Pulses equal, no cyanosis. Neurovascular intact. Full, normal range of motion. 10:12 Abdomen/GI: Inspection: abdomen appears normal, Bowel sounds: normal, Palpation: abdomen is soft and non-tender, Rectal exam: hemorrhoid(s), external, with pain, without bleeding, without thrombosis. Vital Signs: 09:30 BP 120 / 90; Pulse 96; Resp 17; Temp 97; Pulse Ox 100% ; Weight 61.23 kg; Height 5 ft. jl7 4 in. (162.56 cm); Pain 8/10; 09:30 Body Mass Index 23.17 (61.23 kg, 162.56 cm) jl7 MDM: 09:33 Patient medically screened. ms3 10:12 Data reviewed: vital signs, nurses notes, and as a result, I will discharge patient. ms3 Counseling: I had a detailed discussion with the patient and/or guardian regarding: the historical points, exam findings, and any diagnostic results supporting the discharge/admit diagnosis, the need for outpatient follow up, to return to the emergency department if symptoms worsen or persist or if there are any questions or concerns that arise at home. ED course: Discussed exam findings with patient. Patient to follow-up with his primary care physician 2 to 3 days for reevaluation. Patient understands agrees plan. All questions were answered. Return precautions discussed include worsening symptoms, or any other concerns. Administered Medications: No medications were administered Disposition Summary: 03/31/22 09:39 Discharge Ordered Location: Home ms3 Condition: Stable ms3 Diagnosis - rectal pain ms3 - Other hemorrhoids ms3 Followup: ms3 - With: Derik Chakraborty MD - When: 2 - 3 days - Reason: Recheck today's complaints Discharge Instructions: - Discharge Summary Sheet ms3 - High-Fiber Diet ms3 - Hemorrhoids ms3 - Hemorrhoids, [id number] ms3 Forms: - Medication Reconciliation Form ms3 - Thank You Letter ms3 - Antibiotic Education ms3 - Prescription Opioid Use ms3 - Work release form eb Prescriptions: - Anusol-HC 2.5 % Topical cream with perineal applicator - apply 1 centimeter by TOPICAL route 2 times per day; 30 gram; Refills: 0, ms3 Product Selection Permitted Signatures: Rubin Pratt RN RN jl7 [place] DO DO ms3
--- NOTE | 2022-03-31 12:12 | ER ---
Nurse's Notes [facility] Name: Dannie Snell Age: 31 yrs Sex: Male : 1990 Arrival Date: 03/31/2022 Time: 09:10 Bed 12 Private MD: Diagnosis: rectal pain;Other hemorrhoids Presentation: 03/31 09:30 Chief complaint: Patient states: Rectal pain since December 2021 post perianal abscess jl7 surgery. Coronavirus screen: At this time, the client does not indicate any symptoms associated with coronavirus-19. Ebola Screen: No symptoms or risks identified at this time. Initial Sepsis Screen: Does the patient meet any 2 criteria? No. Patient's initial sepsis screen is negative. Does the patient have a suspected source of infection? No. Patient's initial sepsis screen is negative. Risk Assessment: Do you want to hurt yourself or someone else? Patient reports no desire to harm self or others. Onset of symptoms was December 2021. 09:30 Method Of Arrival: Ambulatory 7 09:30 Acuity: YENI 4 jl7 Triage Assessment: 09:30 General: Appears in no apparent distress. uncomfortable, Behavior is calm, cooperative, jl7 appropriate for age. Pain: Complains of pain in buttocks Pain currently is 8 out of 10 on a pain scale. Historical: - Allergies: 09:30 No Known Allergies; jl7 - Home Meds: 09:30 None [Active]; jl7 - PMHx: 09:30 None; jl7 - PSHx: 09:30 None; jl7 - Immunization history:: Client reports receiving the 2nd dose of the Covid vaccine. - Social history:: Smoking status: Reported history of juuling and/or vaping. Screenin:45 Abuse screen: Denies threats or abuse. Denies injuries from another. Nutritional jl7 screening: No deficits noted. Tuberculosis screening: No symptoms or risk factors identified. Fall Risk None identified. Vital Signs: 09:30 BP 120 / 90; Pulse 96; Resp 17; Temp 97; Pulse Ox 100% ; Weight 61.23 kg; Height 5 ft. jl7 4 in. (162.56 cm); Pain 8/10; 09:30 Body Mass Index 23.17 (61.23 kg, 162.56 cm) jl7 ED Course: 09:10 Patient arrived in ED. am2 09:12 [place] DO is Attending Physician. ms3 09:30 Arm band placed on right wrist. jl7 09:35 Served as a cloth washer back tender during rectal exam. jl7 09:38 Derik Chakraborty MD is Referral Physician. ms3 09:45 Patient has correct armband on for positive identification. Placed in gown. Bed in low jl7 position. Call light in reach. Side rails up X 1. 09:45 Patient did not have IV access during this emergency room visit. jl7 11:15 Rubin Pratt, RN is Primary Nurse. jl7 12:09 Triage completed. jl7 Administered Medications: No medications were administered Medication: 09:45 VIS not applicable for this client. jl7 Outcome: 09:39 Discharge ordered by . ms3 09:45 Discharged to home ambulatory. jl7 09:45 Condition: stable 09:45 Discharge instructions given to patient, Instructed on discharge instructions, follow up and referral plans. medication usage, Demonstrated understanding of instructions, follow-up care, medications, Prescriptions given X 1. 12:11 Patient left the ED. jl7 Signatures: Rubin Pratt RN RN jl7 Magui Beltran am2 [place] DO DO ms3 Corrections: (The following items were deleted from the chart) 12:11 09:45 Served as a cloth washer back tender during rectal exam. jl7 jl7
[2022-03-31 12:16] VITALS: BP 120/90; TEMP 97; O2SAT 100
== END 2022-03-31 12:11 | disposition home or self-care (01) ==
LOC: ER 09:09
DX: K64.8 Other hemorrhoids (principal)
CPT/HCPCS: 99283

== ENCOUNTER 2022-07-03 09:02 | Emergency (ER) | payer OTHER ==
--- OUTSIDE RECORDS SUMMARY | 2022-07-03 09:05 | XMS REPORT | Continuity of Care Document ---
:1990 Author Organization [facility] t Address [address] [place] [address] Care Team Providers Name Role Phone Asked, No Pcp Primary Care Physician Unavailable DAMON MARTINEZ Attending Clinician Unavailable Lab, Adc Fam Pob I Attending Clinician Unavailable Damon Smith Attending Clinician Payers Payer Name Policy Type Policy Number Effective Date Expiration Date S brian ALLIED BENEFIT [id number] 2019 00:00:00 Problems Condition Condition Condition Status [...] Active Univers ALLERGIE Class ity of S [facility] Family History Family Member Diagnosis Comments Start Date Stop Date Source Natural father No Known Problems Met [facility] Natural mother No Known Problems Met [facility] Social History Social Habit Start Date Stop Date Quantity Comments Source Exposure to Not sure University SARS-CoV-2 [facility] (event) [place] Alcohol intake 2016-02-16 2016-02-16 Current [facility] 00:00:00 00:00:00 non-drinker of alcohol (finding) Sex Assigned At [birth year] [facility] 00:00:00 00:00:00 Smoking Status Start Date Stop Date Source Unknown if ever smoked [facility] Never smoked tobacco [facility] Medications Ordered Filled Start Stop [...] Planned Date Details Comments Source Future Scheduled 2022-05-19 INFLUENZA VACCINE Method [facility] Test 16:26:47 [code = INFLUENZA VACCINE] Future Scheduled 2022-05-19 COVID-[address] [facility] Test 16:26:47 (#1) [code = COVID-19 VACCINE (#1)] Future Scheduled 2022-02-03 HEPATITIS B [facility] Test 02:06:23 VACCINES (1 of 3 - 3-dose series) [code = HEPATITIS B VACCINES (1 of 3 - 3-dose series)] Future Scheduled 2022-02-03 COVID-[address] [facility] Test 02:06:23 (#1) [code = COVID-19 VACCINE (#1)] Future Scheduled 2022-02-03 INFLUENZA VACCINE Method [facility] Test 02:06:23 [code = INFLUENZA VACCINE] Future Scheduled 2022-02-03 HEPATITIS B [facility] Test 02:06:23 VACCINES (1 of 3 - 3-dose series) [code = HEPATITIS B VACCINES (1 of 3 - 3-dose series)] Future Scheduled 2022-02-03 [facility] Test 02:06:23 (#1) [code = COVID-19 VACCINE (#1)] Future Scheduled 2022-02-03 INFLUENZA VACCINE Method [facility] Test 02:06:23 [code = INFLUENZA VACCINE] Encounters Start End Encounter Admission Attending Care Care Encounter Source Date/Time Date/Time Type Type Clinicians Facility Department ID 2020-01-01 2020-01-01 Outpatient R MICHELLE [facility] [id number] Univers 16:20:00 16:20:[address] [facility] 2020-01-01 2020-01-01 Laboratory Lab, [facility] [id number] 15:46:10 16:06:10 Only Fam Pob I Health [id number] [place] [id number] Professio [phone] [place] [address] [address] 2020-01-01 2020-01-01 Laboratory Lab, [facility] Fam Pob I [facility] [id number] Univers 15:46:10 16:06:10 Only Damon [facility] [id number] [facility]y [facility] [place] [id number] Hai as Professio [phone] Ri dical [address] 2019-12-31 2019-12-31 Outpatient Yaakov MARTINEZ [facility] [id number] Univers 16:20:00 16:20:[address] [facility] Results This patient has no known results.
[2022-07-03] MEDS ORDERED: BUPIVACAINE 0.5% PF 10 ML VIAL ONE (09:36)
[2022-07-03] MEDS ORDERED: LIDOCAINE 1% MPF 5 ML VIAL ONE (09:36)
[2022-07-03] MEDS ORDERED: SMZ./TMP. 800/160 MG TABLET ONE (10:17)
[2022-07-03] MEDS ORDERED: DOXYCYCLINE 100 MG CAP PO ONE (10:17)
--- NOTE | 2022-07-03 10:17 | EDPHYS ---
Physician Documentation [facility] Name: Dannie Snell Age: 32 yrs Sex: Male : 1990 Arrival Date: 07/03/2022 Time: 09:10 Bed 7 Private MD: ED Physician Andrade Velasco HPI: 07/03 09:18 This 32 yrs old Black Male presents to ER via Ambulatory with complaints of Abscess. jmm 09:18 the patient presents with a swollen area of the coccyx. Onset: The symptoms/episode jmm began/occurred gradually, 1 day(s) ago. Possible cause(s): unknown. Associated signs and symptoms: Pertinent positives: swelling. This is a 32 year old male with a history of previous abscesses that presents to the ED with complaints of tailbone pain and swelling. Symptoms began this past Sunday. Denies fever, drainage. . Historical: - Allergies: 09:16 No Known Allergies; ap3 - Home Meds: 09:16 None [Active]; ap3 - PMHx: 09:16 None; ap3 - Immunization history:: Client reports receiving the 2nd dose of the Covid vaccine, Flu vaccine is not up to date. - Social history:: Smoking status: Patient denies any tobacco usage or history of. ROS: 09:18 Constitutional: Negative for fever, chills, and weight loss, Cardiovascular: Negative jmm for chest pain, palpitations, and edema, Respiratory: Negative for shortness of breath, cough, wheezing, and pleuritic chest pain. 09:18 Skin: Negative for swelling. 09:18 All other systems are negative. Exam: 09:18 Constitutional: This is a well developed, well nourished patient who is awake, alert, jmm and in no acute distress. Head/Face: atraumatic. Eyes: EOMI, no conjunctival erythema appreciated ENT: Moist Mucus Membranes Neck: Trachea midline, Supple Chest/axilla: Normal chest wall appearance and motion. Cardiovascular: Regular rate and rhythm. No edema appreciated Respiratory: Normal respirations, no respiratory distress appreciated Abdomen/GI: Non distended Back: Normal ROM 09:18 Skin: swelling noted to the pilonidal region. 09:18 Neuro: Motor: is normal. 09:18 Psych: Behavior/mood is pleasant, cooperative. Vital Signs: 09:14 BP 126 / 98; Pulse 100; Resp 17; Temp 98.3; Pulse Ox 100% ; Weight 71.67 kg; Pain 8/10; ap3 Procedures: 09:42 I \T\ D: Incision and drainage was performed for an abscess of the pilonidal cyst Prepped [facility] with Betadine, Anesthetized with 0.5% marcaine 5 ml, 1% lidocaine 5 ml. Incised with #11 blade. Drained moderate amount purulent fluid. Abscess cavity explored. Dressing: sterile 4x4 gauze, the patient tolerated the procedure well, patient refused packing. MDM: 09:10 Patient medically screened. 7 10:09 Data reviewed: vital signs, nurses notes. I considered the following discharge [facility] prescriptions or medication management in the emergency department Medications were administered in the Emergency Department. See MAR. Test considered but Not performed: CT: PE exam consistent with cutaneous abscess of the buttock. Counseling: I had a detailed discussion with the patient and/or guardian regarding: the historical points, exam findings, and any diagnostic results supporting the discharge/admit diagnosis, the need for outpatient follow up, to return to the emergency department if symptoms worsen or persist or if there are any questions or concerns that arise at home. 10:14 ED course: Differential cutaneous abscess, pilonidal cyst with abscess. [facility] 07/03 09:18 Order name: Gown patient; Complete Time: 09:24 [facility] 07/03 10:13 Order name: Wound Care; Complete Time: 10:17 [facility] Administered Medications: 10:20 Drug: Bactrim (trimethoprim-sulfamethoxazole) (160 mg-800 mg (DS) 1 tablet Route: PO; aa5 10:25 Follow up: Response: Medication administered at discharge. aa5 10:20 Drug: Doxycycline 100 mg Route: PO; aa5 10:25 Follow up: Response: No adverse reaction; Medication administered at discharge. aa5 Disposition: 16:22 Co-signature as Attending Physician, Andrade Velasco MD I reviewed the patient's care rn provided by the Advanced Practice Provider and agree with the diagnosis and treatment plan. Disposition Summary: 07/03/22 10:16 Discharge Ordered Location: Home [facility] Condition: Stable [facility] Diagnosis - Cutaneous Abscess of the Left Buttock [facility] Followup: [facility] - With: Camden Newman MD - When: 2 - 3 days - Reason: Recheck today's complaints, Continuance of care, Re-evaluation by your physician Discharge Instructions: - Discharge Summary Sheet [facility] - Skin Abscess [facility] - How to Take a Sitz Bath [facility] - Incision and Drainage, Care After [facility] Forms: - Medication Reconciliation Form [facility] - Thank You Letter jmm - Antibiotic Education jmm - Prescription Opioid Use [facility] - Work release form [facility] Prescriptions: - Doxycycline Hyclate 100 mg Oral Tablet - take 1 tablet by ORAL route every 12 hours; 20 tablet; Refills: 0, Product jmm Selection Permitted - Bactrim DS 800-160 mg Oral Tablet - take 1 tablet by ORAL route every 12 hours for 10 days; 20 tablet; Refills: 0, jm Product Selection Permitted Signatures: Paddy Betancourt PA PA jmm Nieto, Roman, MD MD rn Calderon, Audri RN RN aa5 Magui Shahid RN RN ap3 Zayda Son, MANAGING EDITOR MANAGING EDITOR 7 Corrections: (The following items were deleted from the chart) 10:09 09:42 I \T\ D: Incision and drainage was performed for an abscess of the pilonidal cyst jmm Prepped with Betadine, Anesthetized with 0.5% marcaine 5 ml, 1% lidocaine 5 ml. Incised with #11 blade. Drained moderate amount purulent fluid. Abscess cavity explored. Packed with iodoform gauze, Dressing: sterile 4x4 gauze, the patient tolerated the procedure well, uzair
--- NOTE | 2022-07-03 10:17 | ER ---
Nurse's Notes [facility] Name: Dannie Snell Age: 32 yrs Sex: Male : 1990 Arrival Date: 07/03/2022 Time: 09:10 Bed 7 Private MD: Diagnosis: Cutaneous Abscess of the Left Buttock Presentation: 07/03 09:14 Chief complaint: Patient states: he feels like he has an abscess on his tailbone. ap3 patient states he started feeling it on Sunday07/01/22. patient reports pain 8/10. Coronavirus screen: At this time, the client does not indicate any symptoms associated with coronavirus-19. Ebola Screen: No symptoms or risks identified at this time. Initial Sepsis Screen: Does the patient meet any 2 criteria? HR > 90 bpm. Does the patient have a suspected source of infection? Yes: Skin breakdown/wound. Risk Assessment: Do you want to hurt yourself or someone else? Patient reports no desire to harm self or others. Onset of symptoms was July 01, 2022. 09:14 Method Of Arrival: Ambulatory ap3 09:14 Acuity: YENI 3 ap3 Triage Assessment: 09:16 General: Appears uncomfortable, Behavior is calm, cooperative. Pain: Complains of pain ap3 in coccyx Pain began gradually, 2-3 days ago. Neuro: Level of Consciousness is awake, alert, obeys commands, Oriented to person, place, time, situation, Speech is normal. Cardiovascular: Respiratory: Airway is patent Respiratory effort is even, unlabored, Respiratory pattern is regular, symmetrical. Derm: Reports abscess near tailbone. Historical: - Allergies: 09:16 No Known Allergies; ap3 - Home Meds: 09:16 None [Active]; ap3 - PMHx: 09:16 None; ap3 - Immunization history:: Client reports receiving the 2nd dose of the Covid vaccine, Flu vaccine is not up to date. - Social history:: Smoking status: Patient denies any tobacco usage or history of. Screenin:17 [facility] ED Fall Risk Assessment (Adult) History of falling in the last 3 months, ap3 including since admission No falls in past 3 months (0 pts). Abuse screen: Denies threats or abuse. Nutritional screening: No deficits noted. Tuberculosis screening: No symptoms or risk factors identified. Assessment: 10:25 Neuro: Level of Consciousness is awake, alert, obeys commands, Oriented to person, aa5 place, time, situation. Respiratory: Airway is patent Respiratory effort is even, unlabored, Respiratory pattern is regular, symmetrical. Derm: Skin is dry, Skin is normal, Skin temperature is warm. Vital Signs: 09:14 BP 126 / 98; Pulse 100; Resp 17; Temp 98.3; Pulse Ox 100% ; Weight 71.67 kg; Pain 8/10; ap3 ED Course: 09:10 Patient arrived in ED. as 09:10 Zayda Son FNP is PHCP. 7 09:10 Andrade Velasco MD is Attending Physician. [facility] 09:12 PHCP role handed off by Zayda Son FNP [facility] 09:12 Paddy Betancourt PA is PHCP. [facility] 09:16 Triage completed. ap3 09:17 Arm band placed on right wrist. ap3 09:19 Red Jimenez, CALLIE is Primary Nurse. bp 10:16 Camden Newman MD is Referral Physician. [facility] 10:25 No provider procedures requiring assistance completed. Patient did not have IV access aa5 during this emergency room visit. Administered Medications: 10:20 Drug: Bactrim (trimethoprim-sulfamethoxazole) (160 mg-800 mg (DS) 1 tablet Route: PO; aa5 10:25 Follow up: Response: Medication administered at discharge. aa5 10:20 Drug: Doxycycline 100 mg Route: PO; aa5 10:25 Follow up: Response: No adverse reaction; Medication administered at discharge. aa5 Medication: 10:25 VIS not applicable for this client. aa5 Outcome: 10:16 Discharge ordered by . [facility] 10:25 Discharged to home ambulatory. aa5 10:25 Condition: stable 10:25 Discharge instructions given to patient, Instructed on discharge instructions, follow up and referral plans. medication usage, Demonstrated understanding of instructions, follow-up care, medications, Prescriptions given X 2. 10:28 Patient left the ED. aa5 Signatures: Paddy Betancourt PA PA jmm Martinez, Amelia as Calderon, Audri, RN RN aa5 Red Jimenez RN RN bp Prokisch, Amanda, RN RN 3 Hadash, Zayda, SMALL ANIMAL CARETAKER SMALL ANIMAL CARETAKER jh7
[2022-07-03 10:38] VITALS: BP 126/98; TEMP 98.3; O2SAT 100
== END 2022-07-03 10:28 | disposition home or self-care (01) ==
LOC: ER 09:02
PROC: 0H98XZZ Drainage of Buttock Skin, External Approach (ICD-10-PCS; principal; 2022-07-03)
DX: L05.91 Pilonidal cyst without abscess (principal)
CPT/HCPCS: 10080; J2001

== ENCOUNTER 2022-07-14 11:21 | Emergency (ER) | payer OTHER ==
--- OUTSIDE RECORDS SUMMARY | 2022-07-14 11:26 | XMS REPORT | Continuity of Care Document ---
:1990 Author Organization [facility] t Address [address] [place] [address] Care Team Providers Name Role Phone Asked, No Pcp Primary Care Physician Unavailable DAMON MARTINEZ Attending Clinician Unavailable Lab, Adc Fam Pob I Attending Clinician Unavailable Damon Smith Attending Clinician Payers Payer Name Policy Type Policy Number Effective Date Expiration Date S ource ALLIED BENEFIT [id number] 2019 00:00:00 Problems Condition Condition Condition Status [...] Active Univers [employer] Class ity of [facility] Family History Family Member Diagnosis Comments Start Date Stop Date Source Natural father No Known Problems Met [facility] Natural mother No Known Problems Met [facility] Social History Social Habit Start Date Stop Date Quantity Comments Source Exposure to Not sure University SARS-CoV-2 [facility] (event) [place] Alcohol intake 2016-02-16 2016-02-16 Current [facility] 00:00:00 00:00:00 non-drinker of alcohol (finding) Sex Ass[birth year] [facility] 00:00:00 00:00:00 Smoking Status Start Date Stop Date Source Unknown if ever smoked [facility] Never smoked tobacco [facility] Medications Ordered Filled Start Stop [...] Source Future Scheduled 2022-05-19 INFLUENZA VACCINE Method [facility] Test 16:26:47 [code = INFLUENZA VACCINE] Future Scheduled 2022-05-19 [facility] 16:26:47 (#1) [code = COVID-19 VACCINE (#1)] Future Scheduled 2022-05-19 INFLUENZA VACCINE Method [facility] Test 16:26:47 [code = INFLUENZA VACCINE] Future Scheduled 2022-05-19 [facility] 16:26:47 (#1) [code = COVID-19 VACCINE (#1)] Future Scheduled 2022-02-03 INFLUENZA VACCINE Method [facility] Test 02:06:23 [code = INFLUENZA VACCINE] Future Scheduled 2022-02-03 HEPATITIS B [facility] Test 02:06:23 VACCINES (1 of 3 - 3-dose series) [code = HEPATITIS B VACCINES (1 of 3 - 3-dose series)] Future Scheduled 2022-02-03 [facility] 02:06:23 (#1) [code = COVID-19 VACCINE (#1)] Future Scheduled 2022-02-03 [facility] 02:06:23 [code = INFLUENZA VACCINE] Future Scheduled 2022-02-03 HEPATITIS B [facility] Test 02:06:23 VACCINES (1 of 3 - 3-dose series) [code = HEPATITIS B VACCINES (1 of 3 - 3-dose series)] Future Scheduled 2022-02-03 [facility] 02:06:23 (#1) [code = COVID-19 VACCINE (#1)] Encounters Start End Encounter Admission Attending Care Care Encounter Source Date/Time Date/Time Type Type Clinicians Facility Department ID 2020-01-01 2020-01-01 Outpatient R MICHELLE [facility] [id number] Univers 16:20:00 16:20:00 DAMON rosen [facility] 2020-01-01 2020-01-01 Laboratory Lab, [facility] [id number] 15:46:10 16:06:10 Only Fam Pob I Health [id number] [place] [id number] Professio [phone] nal [facility] Office [address] 2020-01-01 2020-01-01 Laboratory Lab, [facility] Fam Pob I [facility] [id number] Univers 15:46:10 16:06:10 Only Damon Martinez Health [id number] ity of [place] [id number] Hai as Professio [phone] Co dical [address] 2019-12-31 2019-12-31 Outpatient Yaakov MARTINEZ [facility] [id number] Univers 16:20:00 16:20:00 DAMON rosen [facility] Results This patient has no known results.
[2022-07-14] MEDS ORDERED: KETOROLAC 30 MG/ML INJ ONE (11:45)
[2022-07-14 12:33] LABS: SARS-COV-2 RT PCR NEGATIVE (NEGATIVE)
--- NOTE | 2022-07-14 12:48 | EDPHYS ---
Physician Documentation [facility] Name: Dannie Snell Age: 32 yrs Sex: Male : 1990 Arrival Date: 07/14/2022 Time: 11:25 Bed 9 Private MD: ED Physician Abdifatah Singh HPI: 07/14 11:52 This 32 yrs old Black Male presents to ER via Ambulatory with complaints of Body Aches, rt Sore Throat, Headache. 11:52 The patient presents with sore throat. The patient describes throat pain as constant. rt Onset: The symptoms/episode began/occurred 4 day(s) ago. Severity of symptoms: At their worst the symptoms were moderate. Modifying factors: The symptoms are alleviated by over the counter medications, the symptoms are aggravated by nothing. Associated signs and symptoms: Pertinent positives: Body aches, headache. Currently taking Bactrim and doxycycline for abscess. Historical: - Allergies: 11:32 No Known Allergies; aa5 - PMHx: 11:32 None; aa5 - PSHx: 11:32 perianal abscess; aa5 - Immunization history:: Adult Immunizations up to date. - Social history:: Smoking status: Patient denies any tobacco usage or history of. - Family history:: not pertinent. ROS: 11:52 Neck: Negative for injury, pain, and swelling, Cardiovascular: Negative for chest pain, rt palpitations, and edema, Respiratory: Negative for shortness of breath, cough, wheezing, and pleuritic chest pain, Abdomen/GI: Negative for abdominal pain, nausea, vomiting, diarrhea, and constipation, MS/Extremity: Negative for injury and deformity, Skin: Negative for injury, rash, and discoloration, Psych: Negative for depression, anxiety, suicide ideation, homicidal ideation, and hallucinations. 11:52 Constitutional: Positive for body aches, chills. 11:52 ENT: Positive for rhinorrhea, sore throat. 11:52 Neuro: Positive for headache, Negative for altered mental status. Exam: 11:52 Constitutional: This is a well developed, well nourished patient who is awake, alert, rt and in no acute distress. Head/Face: Normocephalic, atraumatic. Chest/axilla: Normal chest wall appearance and motion. Nontender with no deformity. No lesions are appreciated. Cardiovascular: Regular rate and rhythm with a normal S1 and S2. No gallops, murmurs, or rubs. Normal PMI, no JVD. No pulse deficits. Respiratory: Lungs have equal breath sounds bilaterally, clear to auscultation and percussion. No rales, rhonchi or wheezes noted. No increased work of breathing, no retractions or nasal flaring. Abdomen/GI: Soft, non-tender, with normal bowel sounds. No distension or tympany. No guarding or rebound. No evidence of tenderness throughout. Skin: Warm, dry with normal turgor. Normal color with no rashes, no lesions, and no evidence of cellulitis. MS/ Extremity: Pulses equal, no cyanosis. Neurovascular intact. Full, normal range of motion. Neuro: Awake and alert, GCS 15, oriented to person, place, time, and situation. Cranial nerves II-XII grossly intact. Motor strength 5/5 in all extremities. Sensory grossly intact. Cerebellar exam normal. Normal gait. Psych: Awake, alert, with orientation to person, place and time. Behavior, mood, and affect are within normal limits. 11:52 ENT: Posterior pharyngeal erythema with exudates, no tonsillar hypertrophy, uvula is midline. Vital Signs: 11:31 BP 118 / 80; Pulse 118; Resp 18 S; Temp 99.2(TE); Pulse Ox 100% on R/A; Weight 71.67 kg aa5 (R); Height 5 ft. 4 in. (162.56 cm) (R); 11:31 Body Mass Index 27.12 (71.67 kg, 162.56 cm) aa5 MDM: 11:39 Patient medically screened. rt 12:51 Differential diagnosis: Flu, COVID, RPA, CRUSHER MACHINE OPERATOR, strep pharyngitis, URI. Data reviewed: rt vital signs, nurses notes, lab test result(s). I considered the following discharge prescriptions or medication management in the emergency department Medications were administered in the Emergency Department. See MAR. Test considered but Not performed: Labs: Pharynx has strong appearance of strep pharyngitis, negative test likely to be false negative, will hold testing and treat empirically. CT: No clinical evidence of RPA, CRUSHER MACHINE OPERATOR, CT scan not indicated. Response to treatment: the patient's symptoms have markedly improved after treatment. 07/14 11:39 Order name: COVID-19/FLU A+B; Complete Time: 12:41 rt Administered Medications: 11:48 Drug: TORadol (ketorolac) 30 mg Route: IM; Site: right deltoid; kr3 Disposition Summary: 07/14/22 12:48 Discharge Ordered Location: Home rt Problem: new rt Symptoms: have improved rt Condition: Stable rt Diagnosis - Streptococcal pharyngitis rt Followup: rt - With: Private Physician - When: 2 - 3 days - Reason: Discharge Instructions: - Discharge Summary Sheet rt - Strep Throat, Adult, [id number] rt Forms: - Medication Reconciliation Form rt - Thank You Letter rt - Antibiotic Education rt - Prescription Opioid Use rt Prescriptions: - Amoxicillin 875 mg Oral Tablet - take 1 tablet by ORAL route every 12 hours for 10 days; 20 tablet; Refills: 0, rt Product Selection Permitted Signatures: Dispatcher [employer] Gail Angulo RN RN aa5 Christina Yee RN RN kr3 Abdifatah Singh MD MD rt
--- NOTE | 2022-07-14 12:48 | ER ---
Nurse's Notes [facility] Name: Dannie Snell Age: 32 yrs Sex: Male : 1990 Arrival Date: 07/14/2022 Time: 11:25 Bed 9 Private MD: Diagnosis: Streptococcal pharyngitis Presentation: 07/14 11:31 Chief complaint: Patient states: chills since Sunday. Pt states "I am also having aa5 migraines and body aches and my throat has been hurting". Reports slight cough. Pt reports seen here 07/03 and reports he is still taking antibiotics prescribed (doxycycline and Bactrim). Risk Assessment: Do you want to hurt yourself or someone else? Patient reports no desire to harm self or others. Onset of symptoms was July 2022. 11:31 Acuity: YENI 4 aa5 11:31 Initial Sepsis Screen: Does the patient meet any 2 criteria? HR > 90 bpm. Does the aa5 patient have a suspected source of infection? No. Patient's initial sepsis screen is negative. 11:31 Coronavirus screen: muscle pain, sore throat. Ebola Screen: Patient denies travel to an aa5 Ebola-affected area in the 21 days before illness onset. 11:31 Method Of Arrival: Ambulatory aa Historical: - Allergies: 11:32 No Known Allergies; aa5 - PMHx: 11:32 None; aa5 - PSHx: 11:32 perianal abscess; aa5 - Immunization history:: Adult Immunizations up to date. - Social history:: Smoking status: Patient denies any tobacco usage or history of. - Family history:: not pertinent. Assessment: 13:15 Neuro: Level of Consciousness is awake, alert, obeys commands, Oriented to person, aa5 place, time, situation. Respiratory: Airway is patent Respiratory effort is even, unlabored, Respiratory pattern is regular, symmetrical. Derm: Skin is dry, Skin is normal, Skin temperature is warm. Vital Signs: 11:31 BP 118 / 80; Pulse 118; Resp 18 S; Temp 99.2(TE); Pulse Ox 100% on R/A; Weight 71.67 kg aa5 (R); Height 5 ft. 4 in. (162.56 cm) (R); 11:31 Body Mass Index 27.12 (71.67 kg, 162.56 cm) aa5 ED Course: 11:25 Patient arrived in ED. rg4 11:31 Arm band placed on. aa5 11:32 Triage completed. aa5 11:32 Abdifatah Singh MD is Attending Physician. rt 11:40 Virginia Olea, RN is Primary Nurse. iw 11:48 COVID-19/FLU A+B Sent. kr3 13:15 No provider procedures requiring assistance completed. Patient did not have IV access aa5 during this emergency room visit. Administered Medications: 11:48 Drug: TORadol (ketorolac) 30 mg Route: IM; Site: right deltoid; kr3 Medication: 13:15 VIS not applicable for this client. aa5 Outcome: 12:48 Discharge ordered by MD. rt 13:15 Discharged to home ambulatory. aa5 13:15 Condition: stable 13:15 Discharge instructions given to patient, Instructed on discharge instructions, follow up and referral plans. medication usage, Demonstrated understanding of instructions, follow-up care, medications, Prescriptions given X 1. 13:17 Patient left the ED. aa5 Signatures: Virginia Olea, RN CALLIE Gail Bourgeois RN RN aa5 Alma Guerrero rg4 Christina Yee RN RN kr3 Abdifatah Singh MD MD rt Corrections: (The following items were deleted from the chart) 11:35 11:31 Chief complaint: Patient states: chills since Sunday. Pt states "I am also aa5 having migraines and body aches and my throat has been hurting". Reports slight cough. aa5 11:37 11:31 Chief complaint: Patient states: chills since Sunday. Pt states "I am also aa5 having migraines and body aches and my throat has been hurting". Reports slight cough. Pt reports seen here 07/03 and reports he is still taking antibiotics prescribed. aa5
[2022-07-14 13:21] VITALS: BP 118/80; TEMP 99.2; O2SAT 100
== END 2022-07-14 13:17 | disposition home or self-care (01) ==
LOC: ER 11:21
DX: J02.0 Streptococcal pharyngitis (principal); Z20.822 Contact with and (suspected) exposure to COVID-19
CPT/HCPCS: 0240U; 96372; 99283

== ENCOUNTER 2022-07-17 21:46 | Observation (INO) | payer OTHER ==
--- OUTSIDE RECORDS SUMMARY | 2022-07-17 21:49 | XMS REPORT | Continuity of Care Document ---
:1990 Author Organization [facility] t Address [address] [place] [address] Care Team Providers Name Role Phone Asked, No Pcp Primary Care Physician Unavailable DAMON MARTINEZ Attending Clinician Unavailable Lab, Adc Fam Pob I Attending Clinician Unavailable Damon Smith Attending Clinician Payers Payer Name Policy Type Policy Number Effective Date Expiration Date S ource ALLIED BENEFIT [id number] 2019 00:00:00 Problems Condition Condition Condition Status [...] Active Univers [employer] Class ity of S [facility] Family History Family Member Diagnosis Comments Start Date Stop Date Source Natural father No Known Problems Met [facility] Natural mother No Known Problems Met [facility] Social History Social Habit Start Date Stop Date Quantity Comments Source Exposure to Not sure University SARS-CoV-2 [facility] (event) Portal Alcohol intake 2016-02-16 2016-02-16 Current [facility] 00:00:00 00:00:00 non-drinker of alcohol (finding) Sex Ass[birth year] At [birth year] [facility] 00:00:00 00:00:00 Sex Assigned At [birth year] [facility] 00:00:00 00:00:00 Smoking Status Start Date Stop Date Source Unknown if ever smoked [facility] Never smoked tobacco [facility]ital Medications Ordered Filled Start Stop Current [...] Source Future Scheduled 2022-05-19 INFLUENZA VACCINE Method [facility] Test 16:26:47 [code = INFLUENZA VACCINE] Future Scheduled 2022-05-19 [facility] 16:26:47 (#1) [code = COVID-19 VACCINE (#1)] Future Scheduled 2022-05-19 INFLUENZA VACCINE Method [facility] Test 16:26:47 [code = INFLUENZA VACCINE] Future Scheduled 2022-05-19 COVID[facility] 16:26:47 (#1) [code = COVID-19 VACCINE (#1)] Future Scheduled 2022-05-19 INFLUENZA VACCINE Method [facility] Test 16:26:47 [code = INFLUENZA VACCINE] Future Scheduled 2022-05-19 COVID[facility] 16:26:47 (#1) [code = COVID-19 VACCINE (#1)] Future Scheduled 2022-02-03 [facility]FLU[facility]ZA [facility]ACCINE [facility] Test 02:06:23 [code = INFLUENZA VACCINE] Future Scheduled 2022-02-03 [facility] 02:06:23 VACCINES (1 of 3 - 3-dose series) [code = HEPATITIS B VACCINES (1 of 3 - 3-dose series)] Future Scheduled 2022-02-03 COVID[facility] 02:06:23 (#1) [code = COVID-19 VACCINE (#1)] Future Scheduled 2022-02-03 INFLUENZA VACCINE Method [facility] Test 02:06:23 [code = INFLUENZA VACCINE] Future Scheduled 2022-02-03 [facility] 02:06:23 VACCINES (1 of 3 - 3-dose series) [code = HEPATITIS B VACCINES (1 of 3 - 3-dose series)] Future Scheduled 2022-02-03 COVID[facility] 02:06:23 (#1) [code = COVID-19 VACCINE (#1)] Encounters Start End Encounter Admission Attending Care Care Encounter Source Date/Time Date/Time Type Type Clinicians Facility Department ID 2020-01-01 2020-01-01 [facility] [id number] Univers 16:20:00 16:20:00 DAMON rosen [facility] 2020-01-01 2020-01-01 Laboratory Lab, [facility] Fam Pob I [facility] [id number] [facility] 15:46:10 16:06:10 Only [facility] [id number] ity of [place] [id number] Hai as Professio [phone] [address] 2020-01-01 2020-01-01 Laboratory Lab, [facility] [id number] 15:46:10 16:06:10 Only Fam Pob I Health [id number] [place] [id number] Professio [phone] [place] [address] [address] 2019-12-31 2019-12-31 Outpatient R [facility] [id number] Univers 16:20:00 16:20:00 DAMON rosen [facility] Results This patient has no known results.
[2022-07-18] MEDS ORDERED: NA CHLORIDE 0.9% 1,000 ML ONE ×2 (00:21→03:29)
[2022-07-18] MEDS ORDERED: MORPHINE 4 MG/ML SYR ONE (00:21)
[2022-07-18] MEDS ORDERED: ONDANSETRON 4 MG/2 ML VIAL ONE (00:21)
[2022-07-18 00:32] LABS: Urine Blood Negative (Negative); Urine Glucose Negative (Negative); Urine Protein 1+ (Negative); Urine Specific Gravity 1.025 (1.005-1.030)
[2022-07-18 00:45] LABS: Urine Bacteria <20 /HPF (<20); Urine Mucus 2+ /HPF (None Seen); Urine RBC <5 /HPF (None Seen)
[2022-07-18 01:06] LABS: Absolute Lymphocytes (CBC) 1.2 K/uL (0.7-4.9); Lymphocytes % 27.2 % (15.3-44.8); MCV 78.3 fL (80-100); MPV 7.4 fL (7.6-11.3); RBC Red Blood Cell Count 4.73 M/uL (4.33-5.43)
--- NOTE | 2022-07-18 01:19 | EDPHYS ---
Physician Documentation [facility] Name: Dannie Snell Age: 32 yrs Sex: Male : 1990 Arrival Date: 07/17/2022 Time: 21:49 Bed 18 Private MD: ED Physician Koby Ramirez HPI: 07/18 01:13 This 32 yrs old Black Male presents to ER via Ambulatory with complaints of Groin joanna Injury, Groin Pain. 01:13 Trauma demographics: County: The injury occurred in [place]. Mechanism of injury: joanna SPONTANEOUS. Associated injuries: The patient sustained no obvious injury. The patient has experienced a previous episode, approximately 2 years ago. Historical: - Allergies: 07/17 22:04 No Known Allergies; kl - Home Meds: 22:02 Amoxicillin Oral [Active]; kl - PMHx: 22:02 STREP; EMILIA ANAL ABSCESS; kl - PSHx: 22:02 Perianal abscess; kl - Immunization history:: Adult Immunizations not up to date. - Social history:: Smoking status: Reported history of juuling and/or vaping. ROS: 07/18 01:14 Constitutional: Negative for fever, chills, and weight loss, Eyes: Negative for injury, joanna pain, redness, and discharge, ENT: Negative for injury, pain, and discharge, Neck: Negative for injury, pain, and swelling, Cardiovascular: Negative for chest pain, palpitations, and edema, Respiratory: Negative for shortness of breath, cough, wheezing, and pleuritic chest pain, Back: Negative for injury and pain, : Negative for injury, bleeding, discharge, and swelling, MS/Extremity: Negative for injury and deformity, Skin: Negative for injury, rash, and discoloration, Neuro: Negative for headache, weakness, numbness, tingling, and seizure, Psych: Negative for depression, anxiety, suicide ideation, homicidal ideation, and hallucinations, Allergy/Immunology: Negative for hives, rash, and allergies, Endocrine: Negative for neck swelling, polydipsia, polyuria, polyphagia, and marked weight changes, Hematologic/Lymphatic: Negative for swollen nodes, abnormal bleeding, and unusual bruising. Abdomen/GI: Positive for abdominal pain, of the suprapubic area. Exam: :14 Constitutional: This is a well developed, well nourished patient who is awake, alert, joanna and in no acute distress. Head/Face: Normocephalic, atraumatic. Eyes: Pupils equal round and reactive to light, extra-ocular motions intact. Lids and lashes normal. Conjunctiva and sclera are non-icteric and not injected. Cornea within normal limits. Periorbital areas with no swelling, redness, or edema. ENT: Nares patent. No nasal discharge, no septal abnormalities noted. Tympanic membranes are normal and external auditory canals are clear. Oropharynx with no redness, swelling, or masses, exudates, or evidence of obstruction, uvula midline. Mucous membranes moist. Neck: Trachea midline, no thyromegaly or masses palpated, and no cervical lymphadenopathy. Supple, full range of motion without nuchal rigidity, or vertebral point tenderness. No Meningismus. Chest/axilla: Normal chest wall appearance and motion. Nontender with no deformity. No lesions are appreciated. Cardiovascular: Regular rate and rhythm with a normal S1 and S2. No gallops, murmurs, or rubs. Normal PMI, no JVD. No pulse deficits. Respiratory: Lungs have equal breath sounds bilaterally, clear to auscultation and percussion. No rales, rhonchi or wheezes noted. No increased work of breathing, no retractions or nasal flaring. Back: No spinal tenderness. No costovertebral tenderness. Full range of motion. Male : Normal genitalia with no discharge or lesions. Skin: Warm, dry with normal turgor. Normal color with no rashes, no lesions, and no evidence of cellulitis. MS/ Extremity: Pulses equal, no cyanosis. Neurovascular intact. Full, normal range of motion. Neuro: Awake and alert, GCS 15, oriented to person, place, time, and situation. Cranial nerves II-XII grossly intact. Motor strength 5/5 in all extremities. Sensory grossly intact. Cerebellar exam normal. Normal gait. Psych: Awake, alert, with orientation to person, place and time. Behavior, mood, and affect are within normal limits. 01:14 Abdomen/GI: Inspection: abdomen appears normal, Bowel sounds: normal, Palpation: abdomen is soft and non-tender, Rectal exam: swelling, tenderness, that is moderate, the exam is chaperoned by a family member, Liver: no appreciated palpable abnormalities, Hernia: not appreciated. Vital Signs: 07/17 22:00 BP 121 / 84; Pulse 91; Resp 18; Temp 98.4; Pulse Ox 100% on R/A; Weight 71.67 kg; kl Height 5 ft. 4 in. (162.56 cm); Pain 9/10; 22:00 Body Mass Index 27.12 (71.67 kg, 162.56 cm) kl MDM: 22:05 Patient medically screened. [facility] 07/18 01:16 Differential diagnosis: abscess, cellulitis. Data reviewed: vital signs, nurses notes, [facility] lab test result(s), radiologic studies, CT scan. Consideration of Admission/Observation Patient was admitted/placed on observation. Escalation of care including admission/observation considered. I considered the following discharge prescriptions or medication management in the emergency department Medications were administered in the Emergency Department. See MAR. Test considered but Not performed: Ultrasound NO ABD PEL USG. Care significantly affected by the following chronic conditions: NONE. 07/17 22:06 Order name: CBC with Diff [facility] 07/17 22:06 Order name: CMP [facility] 07/17 22:06 Order name: Lipase [facility] 07/17 22:06 Order name: Urine Microscopic Only [facility] 07/18 00:32 Order name: Urine Dipstick-Ancillary; Complete Time: 01:07 [facility] 07/18 00:45 Order name: Urine Microscopic Only; Complete Time: 01:07 [facility] 07/17 22:06 Order name: CT Abd/Pelvis - IV Contrast Only [facility] 07/18 01:13 Order name: CBC with Automated Diff; Complete Time: 01:19 [facility] 07/18 01:19 Order name: SARS RAPID [facility] 07/18 01:20 Order name: Comprehensive Metabolic Panel [facility] 07/18 01:20 Order name: Lipase [facility] 07/18 02:09 Order name: SARS-COV-2 Antigen Rapid [facility] 07/18 02:55 Order name: CREATININE WHOLE BLOOD [facility] 07/17 22:06 Order name: IV Saline Lock; Complete Time: 00:59 [facility] 07/17 22:06 Order name: Labs collected and sent; Complete Time: 01:00 [facility] 07/17 22:06 Order name: Urine Dipstick-Ancillary (obtain specimen); Complete Time: 00:37 [facility] Administered Medications: 01:00 Drug: NS 0.9% 1000 ml Route: IV; Rate: 1 bolus; Site: right antecubital; lg3 03:58 Follow up: Response: No adverse reaction; IV Status: Completed infusion; IV Intake: lg3 1000ml 01:00 Drug: Zofran (Ondansetron) 4 mg Route: IVP; Site: right antecubital; lg3 03:58 Follow up: Response: No adverse reaction lg3 01:00 Drug: morphine 4 mg Route: IVP; Infused Over: 4 mins; Site: right antecubital; lg3 03:58 Follow up: Response: No adverse reaction lg3 02:02 Drug: Zosyn (piperacillin-tazobactam) 3.375 grams Route: IVPB; Infused Over: 60 mins; lg3 Site: right antecubital; 03:57 Follow up: IV Status: Completed infusion; IV Intake: 100ml lg3 Disposition Summary: 07/18/22 01:18 Hospitalization Ordered Hospitalization Status: Observation joanna Provider: Quang Stock cha Condition: Stable joanna Problem: new joanna Symptoms: have improved joanna Bed/Room Type: Standard [facility] Location: [facility] ER HOLD(07/18/22 02:42) Room Assignment: ERHOLD-(07/18/22 02:42) Diagnosis - Anal abscess - PAIN, RECURRENCE joanna Discharge Instructions: - Discharge Summary Sheet ko1 Forms: - Medication Reconciliation Form joanna - SBAR form joanna - Work release form ko1 Signatures: Dispatcher [employer] Mary Kay Keller RN RN kl Webb, Martha, RN RN mw Anderson, Corey, MD MD cha Gibson, Lacie, RN RN lg3 Corrections: (The following items were deleted from the chart) : 01:18 Telemetry/MedSurg (observation) [facility] 02:42 01:18 [facility]
--- NOTE | 2022-07-18 01:19 | ER ---
Nurse's Notes [facility] Name: Dannie Snell Age: 32 yrs Sex: Male : 1990 Arrival Date: 07/17/2022 Time: 21:49 Bed 18 Private MD: Diagnosis: Anal abscess-PAIN, RECURRENCE Presentation: 07/17 22:00 Chief complaint: Patient states: "I eel like my emilia anal abscess is back " On antibiotics for strep. Coronavirus screen: Vaccine status: Patient reports receiving the 2nd dose of the covid vaccine. Ebola Screen: Patient negative for fever greater than or equal to 101.5 degrees Fahrenheit, and additional compatible Ebola Virus Disease symptoms. Initial Sepsis Screen: Does the patient meet any 2 criteria? No. Patient's initial sepsis screen is negative. Does the patient have a suspected source of infection? Yes: Skin breakdown/wound. Risk Assessment: Do you want to hurt yourself or someone else? Patient reports no desire to harm self or others. 22:00 Method Of Arrival: Ambulatory 22:00 Acuity: YENI 3 07/18 03:57 Onset of symptoms is unknown. lg3 Triage Assessment: 07/17 22:03 General: Appears distressed, uncomfortable, Behavior is calm, cooperative. Pain: Complains of pain in gluteal cleft. Historical: - Allergies: 22:04 No Known Allergies; kl - Home Meds: 22:02 Amoxicillin Oral [Active]; kl - PMHx: 22:02 STREP; EMILIA ANAL ABSCESS; - PSHx: 22:02 Perianal abscess; kl - Immunization history:: Adult Immunizations not up to date. - Social history:: Smoking status: Reported history of juuling and/or vaping. Screenin/14 00:45 [place] ED Fall Risk Assessment (Adult) History of falling in the last 3 months, lg3 including since admission No falls in past 3 months (0 pts). Abuse screen: Denies threats or abuse. Denies injuries from another. Nutritional screening: No deficits noted. Tuberculosis screening: No symptoms or risk factors identified. Assessment: 00:45 General: Appears in no apparent distress. uncomfortable, Behavior is calm, cooperative. lg3 Pain: Complains of pain in buttocks Pain currently is 4 out of 10 on a pain scale. Neuro: No deficits noted. Schaeffer Agitation-Sedation Scale (RASS): 0 - Alert and Calm Level of Consciousness is awake, alert, obeys commands, Oriented to person, place, time, situation. Cardiovascular: No deficits noted. Denies chest pain, shortness of breath, Capillary refill < 3 seconds Clubbing of nail beds is absent JVD is absent Patient's skin is warm and dry. Respiratory: No deficits noted. Airway is patent Trachea midline Respiratory effort is even, unlabored, Respiratory pattern is regular, symmetrical. GI: No deficits noted. No signs and/or symptoms were reported involving the gastrointestinal system. Abdomen is flat, non-distended. : No deficits noted. No signs and/or symptoms were reported regarding the genitourinary system. EENT: No deficits noted. No signs and/or symptoms were reported regarding the EENT system. Derm: No deficits noted. Skin is intact, is healthy with good turgor, Skin is dry, Skin is normal, Skin temperature is warm Reports pain in emilia anal area. Musculoskeletal: No deficits noted. No signs and/or symptoms reported regarding the musculoskeletal system. Circulation, motion, and sensation intact. Range of motion: intact in all extremities. Vital Signs: 07/17 22:00 BP 121 / 84; Pulse 91; Resp 18; Temp 98.4; Pulse Ox 100% on R/A; Weight 71.67 kg; Height 5 ft. 4 in. (162.56 cm); Pain 9/10; 22:00 Body Mass Index 27.12 (71.67 kg, 162.56 cm) ED Course: 21:49 Patient arrived in ED. jj6 22:02 Triage completed. 22:05 Koby Ramirez MD is Attending Physician. [facility] 07/18 00:37 Hyacinth Gabriel, RN is Primary Nurse. lg3 00:37 Urine Microscopic Only Sent. lg3 00:45 Patient has correct armband on for positive identification. Placed in gown. Bed in low lg3 position. Call light in reach. Side rails up X 1. Client placed on continuous cardiac and pulse oximetry monitoring. NIBP monitoring applied. Door closed. Noise minimized. Warm blanket given. Family accompanied patient. 00:59 CBC with Diff Sent. lg3 00:59 CMP Sent. lg3 00:59 Lipase Sent. lg3 01:08 Inserted saline lock: 20 gauge in right antecubital area, using aseptic technique. rv1 Blood collected. 01:17 Quang Stock MD is Hospitalizing Provider. joanna 01:49 SARS RAPID Sent. lg3 03:55 No provider procedures requiring assistance completed. Patient admitted, IV remains in lg3 place. intact, No redness/swelling at site. 03:56 Arm band placed on right wrist. lg3 09:00 Primary Nurse role handed off by Hyacinth Gabriel RN jl7 14:56 Mackenzie Toledo, CALLIE is Primary Nurse. ko1 Administered Medications: 01:00 Drug: NS 0.9% 1000 ml Route: IV; Rate: 1 bolus; Site: right antecubital; lg3 03:58 Follow up: Response: No adverse reaction; IV Status: Completed infusion; IV Intake: lg3 1000ml 01:00 Drug: Zofran (Ondansetron) 4 mg Route: IVP; Site: right antecubital; lg3 03:58 Follow up: Response: No adverse reaction lg3 01:00 Drug: morphine 4 mg Route: IVP; Infused Over: 4 mins; Site: right antecubital; lg3 03:58 Follow up: Response: No adverse reaction lg3 02:02 Drug: Zosyn (piperacillin-tazobactam) 3.375 grams Route: IVPB; Infused Over: 60 mins; lg3 Site: right antecubital; 03:57 Follow up: IV Status: Completed infusion; IV Intake: 100ml lg3 Medication: 03:56 VIS not applicable for this client. lg3 Intake: 03:57 IV: 100ml; Total: 100ml. lg3 03:58 IV: 1000ml; Total: 1100ml. lg3 Outcome: 01:18 Decision to Hospitalize by Provider. joanna 03:55 Admitted to ER Hold. Please see [facility] for further documentation. lg3 03:55 Condition: stable 03:55 Instructed on the need for admit, Demonstrated understanding of instructions. 14:57 Patient left the ED. ko1 Signatures: Mary Kay Fair, RN Koby Dowell MD MD cha Leal, Jahala, RN RN jl7 Hyacinth Gabriel, RN RN lg3 Zayda Avila [facility] Mackenzie Toledo, RN RN ko1 Gill Holland rv1 Janessa Turcios bc6 Corrections: (The following items were deleted from the chart) 01:08 01:00 Inserted saline lock: 20 gauge in right antecubital area, using aseptic rv1 technique. Blood collected. bc6
[2022-07-18 01:20] LABS: Albumin 3.1 g/dL (3.4-5.0); Bilirubin Total 0.3 mg/dL (0.2-1.0); Potassium 3.7 mmol/L (3.5-5.1); Protein, Total 7.3 g/dL (6.4-8.2)
[2022-07-18] MEDS ORDERED: PIPERACIL/TAZO 3.375 GM VIAL IV ONE ×2 (01:55→09:18)
[2022-07-18] MEDS ORDERED: NA CHLORIDE 0.9% 100 ML ONE ×2 (01:55→09:18)
[2022-07-18 02:09] LABS: SARS-CoV-2 Antigen Rapid Res Negative (Negative)
[2022-07-18] MEDS ORDERED: ACETAMINOPHEN 500 MG TAB PO PRN (03:02)
[2022-07-18] MEDS ORDERED: NA CHLORIDE 0.9% 1,000 ML IV SCH (03:02)
[2022-07-18 03:22] VITALS: BMI 27.1
[2022-07-18] MEDS ORDERED: MORPHINE 4 MG/ML SYR IV PRN (04:21)
[2022-07-18] MEDS ORDERED: ONDANSETRON 4 MG/2 ML VIAL IV PRN (06:21)
[2022-07-18] MEDS ORDERED: PIPER TAZO 3.375 GM in NA CHLORIDE 0.9% 100 ML IV SCH (09:00)
[2022-07-18] MEDS ORDERED: INFLUENZA VACCINE (for 6+ mo) 0.5 ML DOSE IMVAC ONE (09:00)
[2022-07-18 13:39] VITALS: BP 103/62; TEMP 98
--- NOTE | 2022-07-18 14:39 | P.HP ---
Date of Service: 07/18/22 PC: This 32-year-old male presented to the emergency room with severe perirectal pain for diagnosis and treatment. HPC: This patient, who has had a previous perirectal abscess, started experiencing some pain and discomfort in the perianal region. He presented to the emergency room as he feared he was developing another perirectal abscess. PSHx: Incision and drainage of a perirectal abscess PMHx: NAD Social Hx: No known allergies Sys R: No cough, wheeze, shortness of breath. No chest pain or palpitations. No alteration in his bowel habits. O/E: Awake alert comfortable at the moment HEENT: Within normal limits Chest: Air entry equal bilaterally Abd: NAD [place]: Intact Data: Normal white cell count, CT scan does not demonstrate any perirectal abscess or abnormality Impression: Perirectal discomfort, gone at the moment Plan: Discharge patient, follow-up as an outpatient with GI and colonoscopy to rule out inflammatory bowel disease, perirectal fistula. I have discussed this with the patient. He will come see me in my office next week. Should his pain recur, he will return to the emergency room, or contact me. He will be continued on antibiotics for next 48 hours.
--- NOTE | 2022-07-18 14:41 | P.PN ---
Date of Service: 07/18/22 S: Patient states he feels a lot better today. Anxious to go home. O: Chart reviewed, vital signs are stable, A: Nonsurgical issue at this time P: Patient is stable at this time, he does not require any surgical intervention. I have discussed this with his mom who works with us in the OR. She is comfortable with him going home as well. We will keep her on antibiotics for the next 24 hours. Should he have any questions or problems, he will contact me or return to the ER.
[2022-07-18 15:08] VITALS: O2SAT 100
--- NOTE | 2022-07-18 20:36 | RAD REPORT ---
EXAM DESCRIPTION: CT - Abdomen Pelvis W Contrast - 07/18/2022 6:44 am CLINICAL HISTORY: 32 years, Male, ABD PAIN COMPARISON: 12/17/2021 TECHNIQUE: Contrast-enhanced images of the abdomen and pelvis were performed utilizing 5 mm slice th ickness at 5 mm interval reconstruction from the lung bases to the ischial tuberosities after the adm inistration of IV contrast. In addition multiplanar reformats in the coronal and sagittal plane were obtained and reviewed. This exam was performed according to our departmental dose-optimization protocol, which includes auto mated exposure control, adjustment of the mA and/or kV according to patient size and/or use of iterat ashley reconstruction technique. FINDINGS: The lung bases demonstrate minimal dependent atelectatic changes. The liver, gallbladder, pancreas, spleen and adrenal glands demonstrate to be unremarkable, no focal lesions are noted. The kidneys demonstrate normal uptake of contrast media. No evidence for nephrolithiasis and/or hydro nephrosis. Grossly the unopacified stomach, small bowel and large bowel demonstrate to be within normal limits. There is no evidence for bowel dilatation/or free air. The appendix is normal. The left side colo n is unremarkable. The urinary bladder demonstrate to be unremarkable. The prostate gland is normal. The aorta demon strate to be normal. There is no retroperitoneal lymphadenopathy. There is no evidence for ascites/ or significant abnormal fluid collections. The rest of the soft tissue and bony structures are within normal limits. IMPRESSION: No acute intra-abdominal process. Unremarkable CT scan of the abdomen and pelvis with contrast. Electronically signed by: Hayder Banegas MD 07/18/2022 1:50 AM BODY CORPORATE MANAGER Due to temporary technical issues with the PACS/Fluency reporting system, reports are being signed by the in house radiologists without review as a courtesy to insure prompt reporting. The interpreting radiologist is fully responsible for the content of the report.
== END 2022-07-18 14:57 | disposition home or self-care (01) ==
LOC: ER 21:46 → ERHOLD 07-18 01:21
PROVIDERS: ADMIT Surgery; ATTEND Surgery
DX: K62.89 Other specified diseases of anus and rectum (principal); Z98.890 Other specified postprocedural states; F17.290 Nicotine dependence, other tobacco product, uncomplicated
CPT/HCPCS: 85025; 36415; 82565; 83690; 80053; 74177; 87811; Q9967; J2543 ×2; J7030 ×2; J2405; 81003; 81015; G0378

== ENCOUNTER 2023-03-07 08:06 | Inpatient (IN) | payer OTHER ==
--- OUTSIDE RECORDS SUMMARY | 2023-03-07 08:09 | XMS REPORT | Continuity of Care Document ---
:[address] [facility] t Address [address] [place] [address] [place] [id number] Care Team Providers Name Role Phone Asked, No Pcp Primary Care Physician Unavailable DAMON MARTINEZ Attending Clinician Unavailable Lab, Adc Fam Pob I Attending Clinician Unavailable Damon Smith Attending Clinician Payers Payer Name Policy Type Policy Number Effective Date Expiration Date S elisace ALLIED BENEFIT [id number] 2019 00:00:00 Problems Condition Condition Condition Status [...] Active Univers ALLERGIE Class ity of S [facility] Family History Family Member Diagnosis Comments Start Date Stop Date Source Natural father No Known Problems Met [facility] Natural mother No Known Problems [facility] Social History Social Habit Start Date Stop Date Quantity Comments Source Exposure to Not sure University of SARS-CoV-2 (event) [facility] Sexual orientation [facility] History of Social 2016-12-04 2016-12-[address] function 00:00:00 00:00:00 Hospital Alcohol intake 2016-02-16 2016-02-16 Current [facility] 00:00:00 00:00:00 non-drinker of Hospital alcohol (finding) Sex Assigned At [birth year] [facility] 00:00:00 00:00:00 Hospital Smoking Status Start Date Stop Date Source Unknown if ever smoked [facility] Never smoked tobacco [facility] Medications Ordered Filled Start Stop Current Ordering Indication Dosage Frequency Signature Comments Components Source Medication Medication Date Date Medication? Clinician (SIG) Name Name No known No No known Metho di medications 9-[address] 09:45: [facility] No known 2015- No No known Metho di medications 9-[address] 09:45: [facility] l No known 2015- No No known Metho di medications 9-14 [...] Planned Date Details Comments Source Future Scheduled 2023-02-05 [facility]57 (#1) [code = COVID-19 VACCINE (#1)] Future Scheduled 2023-02-05 INFLUENZA VACCINE Method [facility] Test 19:33:57 (#1) [code = INFLUENZA VACCINE (#1)] Future Scheduled 2022-05-19 [facility] 16:26[facility]47 (#1) [code = COVID-19 VACCINE (#1)] Future Scheduled 2022-05-19 INFLUENZA VACCINE [facility] Test 16:26:47 [code = INFLUENZA VACCINE] Future Scheduled 2022-05-19 [facility] 16:26[facility]47 (#1) [code = COVID-19 VACCINE (#1)] Future Scheduled 2022-05-19 INFLUENZA VACCINE Method [facility] Test 16:26:47 [code = INFLUENZA VACCINE] Future Scheduled 2022-05-19 COVID-19 VACCINE Methodi [facility] Test 16:26:47 (#1) [code = COVID-19 VACCINE (#1)] Future Scheduled 2022-05-19 INFLUENZA VACCINE Method [facility] Test 16:26:47 [code = INFLUENZA VACCINE] Future Scheduled 2022-02-03 INFLUENZA VACCINE Method [facility] Test 02:06:23 [code = INFLUENZA VACCINE] Future Scheduled 2022-02-03 HE[facility]ITIS B [facility] Test 02:06:23 VACCINES (1 of 3 - 3-dose series) [code = HEPATITIS B VACCINES (1 of 3 - 3-dose series)] Future Scheduled 2022-02-03 COVID-19 VACCINE Methodi [facility] Test 02:06:23 (#1) [code = COVID-19 VACCINE (#1)] Future Scheduled 2022-02-03 INFLUENZA VACCINE Method [facility] Test 02:06:23 [code = INFLUENZA VACCINE] Future Scheduled 2022-02-03 HEPATITIS B [facility] Test 02:06:23 VACCINES (1 of 3 - 3-dose series) [code = HEPATITIS B VACCINES (1 of 3 - 3-dose series)] Future Scheduled 2022-02-03 COVID-19 VACCINE Methodi [facility] Test 02:06:23 (#1) [code = COVID-19 VACCINE (#1)] Encounters Start End Encounter Admission Attending Care Care Encounter Source Date/Time Date/Time Type Type Clinicians Facility Department ID 2020-01-01 2020-01-01 Outpatient R MICHELLE [facility] [id number] Univers 16:20:00 16:20:00 [facility]01-01 2020-01-01 Laboratory Lab, [facility] Fam Pob I [facility] [id number] Univers 15:46:10 16:06:10 Only Damon Martinez [id number] [id number] Hai as [place] [phone] [address] 2020-01-01 2020-01-01 Laboratory Lab, [facility] [id number] 15:46:10 16:06:10 Only [facility] [id number] [place] [id number] Professio [phone] nal [address] 2019-12-31 2019-12-31 Outpatient Yaakov MARTINEZ [facility] [id number] Univers 16:20:00 16:20:00 DAMON rosen of [facility] Results This patient has no known results.
[2023-03-07 08:43] LABS: Absolute Lymphocytes (CBC) 0.5 K/uL (0.7-4.9); Hematocrit 36.8 % (39.6-49.0); Lymphocytes % 23.3 % (15.3-44.8); MCV 77.5 fL (80-100); MPV 6.8 fL (7.6-11.3); Platelets 335 thou/uL (152-406); RBC Red Blood Cell Count 4.75 M/uL (4.33-5.43)
[2023-03-07] MEDS ORDERED: NA CHLORIDE 0.9% 2,000 ML ONE (08:51)
[2023-03-07] MEDS ORDERED: HYDROMORPHONE HCL 1 MG/ML INJ ONE ×2 (08:51→13:41)
[2023-03-07 08:53] LABS: Protime INR 1.18
[2023-03-07 09:01] LABS: Albumin 3.7 g/dL (3.4-5.0); Bilirubin Total 0.8 mg/dL (0.2-1.0); Potassium 3.5 mEq/L (3.5-5.1); Protein, Total 9.8 g/dL (6.4-8.2)
--- NOTE | 2023-03-07 09:15 | RAD REPORT ---
EXAM DESCRIPTION: CT - Pelvis W/Cont - 03/07/2023 8:57 am CLINICAL HISTORY: rectal pain/abscess eval Pain and swelling COMPARISON: Pelvis W/Cont dated 02/17/2022; Abdomen Pelvis W Contrast dated 07/18/2022 TECHNIQUE: All CT scans are performed using dose optimization technique as appropriate and may inclu de automated exposure control or mA/KV adjustment according to patient size. FINDINGS: No lymphadenopathy is evident in the pelvis. No free fluid or mass seen in the pelvis. Subtle fluid density is seen along the right perirectal location measuring 28 x 11 mm. There does not appear to be significant rim enhancement present. No worrisome bone lesion. IMPRESSION: Fluid density along the right perirectal location measuring 28 x 11 mm without circumscr ibed rim enhancement. This may indicate early/developing perirectal abscess.
[2023-03-07] MEDS ORDERED: PIPERACIL/TAZO 3.375 GM VIAL IV ONE (09:18)
[2023-03-07] MEDS ORDERED: NA CHLORIDE 0.9% 100 ML ONE (09:18)
--- NOTE | 2023-03-07 09:34 | ER ---
Nurse's Notes [facility] Name: Dannie Snell Age: 32 yrs Sex: Male : 1990 Arrival Date: 03/07/2023 Time: 08:06 Bed 5 Private MD: Diagnosis: Darline-anal abscess, leukopenia Presentation: 03/07 08:16 Chief complaint: Patient states: hx of perianal abscess , feels like he has one again, iw had to have surgery last year. Coronavirus screen: At this time, the client does not indicate any symptoms associated with coronavirus-19. Ebola Screen: Patient negative for fever greater than or equal to 101.5 degrees Fahrenheit, and additional compatible Ebola Virus Disease symptoms Patient denies exposure to infectious person. Patient denies travel to an Ebola-affected area in the 21 days before illness onset. No symptoms or risks identified at this time. Initial Sepsis Screen: Does the patient meet any 2 criteria? No. Patient's initial sepsis screen is negative. Does the patient have a suspected source of infection? No. Patient's initial sepsis screen is negative. Risk Assessment: Do you want to hurt yourself or someone else? Patient reports no desire to harm self or others. Onset of symptoms was March 05, 2023. 08:16 Method Of Arrival: Ambulatory 08:16 Acuity: YENI 3 iw Historical: - Allergies: 08:19 No Known Allergies; iw - PMHx: 08:19 DARLINE ANAL ABSCESS; strep; iw - PSHx: 08:19 Perianal abscess; iw - Immunization history:: Adult Immunizations unknown. - Social history:: Smoking status: Patient denies any tobacco usage or history of. Screenin:30 [facility] ED Fall Risk Assessment (Adult) History of falling in the last 3 months, db including since admission No falls in past 3 months (0 pts) Score/Fall Risk Level 0 - 2 = Low Risk Oriented to surroundings, Maintained a safe environment. Abuse screen: Denies threats or abuse. Denies injuries from another. Nutritional screening: No deficits noted. Tuberculosis screening: No symptoms or risk factors identified. Assessment: 08:30 Reassessment: Patient appears in no apparent distress at this time. Patient and/or db family updated on plan of care and expected duration. Pain level reassessed. Patient is alert, oriented x 3, equal unlabored respirations, skin warm/dry/pink. General: Behavior is. General: Appears in no apparent distress. uncomfortable, Behavior is calm, cooperative. Pain: Complains of pain in buttocks. Neuro: Level of Consciousness is awake, alert, obeys commands, Oriented to person, place, time, situation. Cardiovascular: No deficits noted. Respiratory: No deficits noted. Airway is patent Respiratory effort is even, unlabored, Respiratory pattern is regular, symmetrical. GI: No deficits noted. No signs and/or symptoms were reported involving the gastrointestinal system. : No deficits noted. No signs and/or symptoms were reported regarding the genitourinary system. EENT: No deficits noted. No signs and/or symptoms were reported regarding the EENT system. Derm: Abscess located on buttocks Reports pain that is 8 out of 10 on a pain scale. 08:55 Reassessment: Patient appears in no apparent distress at this time. Patient and/or db family updated on plan of care and expected duration. Pain level reassessed. Patient is alert, oriented x 3, equal unlabored respirations, skin warm/dry/pink. PATIENT TO CT. 09:44 Reassessment: Patient appears in no apparent distress at this time. Patient and/or db family updated on plan of care and expected duration. Pain level reassessed. Patient is alert, oriented x 3, equal unlabored respirations, skin warm/dry/pink. AIR DEFENSE CONTROL OFFICER AT PATIENT BEDSIDE FOR ADDITIONAL BLOOD ADDED ON. General: Appears in no apparent distress. comfortable, Behavior is calm, cooperative. Neuro: Level of Consciousness is awake, alert, obeys commands, Oriented to person, place, time, situation. 11:00 Reassessment: Patient appears in no apparent distress at this time. Patient and/or db family updated on plan of care and expected duration. Pain level reassessed. Patient is alert, oriented x 3, equal unlabored respirations, skin warm/dry/pink. General: Appears in no apparent distress. comfortable, Behavior is calm, cooperative. 12:00 Reassessment: Patient appears in no apparent distress at this time. Patient and/or db family updated on plan of care and expected duration. Pain level reassessed. Patient is alert, oriented x 3, equal unlabored respirations, skin warm/dry/pink. 13:00 Reassessment: Patient appears in no apparent distress at this time. Patient and/or db family updated on plan of care and expected duration. Pain level reassessed. Patient is alert, oriented x 3, equal unlabored respirations, skin warm/dry/pink. 13:13 Reassessment: REPORT GIVEN TO CALLIE IBRAHIM. db Vital Signs: 08:19 BP 135 / 94; Pulse 121; Resp 16; Pulse Ox 100% on R/A; Weight 66.68 kg; Height 5 ft. 4 iw in. ; Pain 10/10; 09:00 BP 119 / 74; Pulse 112; Resp 16; Pulse Ox 100% on R/A; db 10:00 BP 131 / 77; Pulse 108; Resp 18; Pulse Ox 100% on R/A; db 11:00 BP 117 / 80; Pulse 102; Resp 18; Pulse Ox 100% on R/A; db 12:00 BP 110 / 69; Pulse 109; Resp 18; Pulse Ox 100% on R/A; db 12:45 BP 107 / 80; Pulse 105; Resp 18; Pulse Ox 98% ; db 13:15 Pain 8/10; db 08:19 Body Mass Index 25.23 (66.68 kg, 162.56 cm) iw 08:19 Pain Scale: Adult iw 13:15 Pain Scale: Adult db ED Course: 08:09 Patient arrived in ED. im 08:14 Danika Abebe FNP-C is PHCP. snw 08:14 [place] DO is Attending Physician. snw 08:14 Altagracia Tillman, RN is Primary Nurse. db 08:19 Triage completed. iw 08:20 Arm band placed on. iw 08:32 Patient has correct armband on for positive identification. Bed in low position. Call db light in reach. Side rails up X 1. 08:32 Inserted saline lock: 20 gauge in right antecubital area, using aseptic technique. db Blood collected. 08:32 First set of blood cultures drawn. db 08:59 CT Pelvis w cont In Process Unspecified. EDMS 09:32 Dieudonne Castro MD is Hospitalizing Provider. snw 13:15 Provided Education on: ADMISSION. db 13:15 No provider procedures requiring assistance completed. Patient admitted, IV remains in db place. Administered Medications: 08:43 Drug: NS 0.9% IV (30 ml/kg) 30 ml/kg IV at bolus once; Sepsis Protocol Route: IV; Rate: db bolus; Site: right antecubital; 13:16 Follow up: Response: No adverse reaction; IV Status: Completed infusion; IV Intake: db 2000ml 08:43 Drug: HYDROmorphone IVP 1 mg IVP once Route: IVP; Site: right antecubital; db 13:00 Follow up: Response: No adverse reaction db 09:10 Drug: Piperacillin-Tazobactam IVPB 3.375 grams IVPB once over 60 mins; (mix in NS 100 db mL) Route: IVPB; Infused Over: 60 mins; Site: right antecubital; 10:05 Follow up: Response: No adverse reaction; IV Status: Completed infusion; IV Intake: db 100ml 13:31 Drug: HYDROmorphone IVP 1 mg IVP once Route: IVP; Site: right antecubital; db 13:40 Follow up: Response: No adverse reaction db Medication: 08:30 VIS not applicable for this client. db Intake: 10:05 IV: 100ml; Total: 100ml. db 13:16 IV: 2000ml; Total: 2100ml. db Outcome: 09:34 Decision to Hospitalize by Provider. snw 13:15 Admitted to Med/surg db 13:15 Condition: stable 13:15 Instructed on the need for admit, 13:38 Patient left the ED. db Signatures: Dispatcher [employer] EDDanika Myles FNP-C COMPUTER LANGUAGE CODER-CsnVirginia Aquino RN RN iw Altagracia Tillman RN RN db Codi Angelo Corrections: (The following items were deleted from the chart) 08:57 08:30 Social history: Smoking status: Patient/guardian denies using tobacco, db db
[2023-03-07 09:35] LABS: Specific Gravity > 1.030 (1.005-1.030); Urine Bacteria None Seen /HPF (<20); Urine Bilirubin NEGATIVE (Negative); Urine Blood Negative (Negative); Urine Clarity Clear (Clear); Urine Color Light-Yellow (Yellow); Urine Glucose NEGATIVE (Negative); Urine Mucus Slight /HPF (None Seen); Urine Protein 1+ (Negative); Urine RBC <5 /HPF (None Seen); Urine Urobilinogen Normal (Normal)
--- NOTE | 2023-03-07 09:35 | EDPHYS ---
Physician Documentation [facility] Name: Dannie Snell Age: 32 yrs Sex: Male : 1990 Arrival Date: 03/07/2023 Time: 08:06 Bed 5 Private MD: ED Physician [place] HPI: 03/07 08:22 This 32 yrs old Black Male presents to ER via Ambulatory with complaints of Rectal snw Abscess, Rectal pain. 08:22 The patient presents to the emergency department with pain in the rectal area, that is snw severe, left darline-rectal. Onset: The symptoms/episode began/occurred suddenly, 2 day(s) ago. Modifying factors: The symptoms are alleviated by nothing, The symptoms are aggravated by sitting position. Associate signs and symptoms: Pertinent negatives: constipation, diarrhea, fever, lower GI bleeding. The patient has experienced a previous episode, approximately 5 months ago. The patient has not recently seen a physician. Dr. Chakraborty did previous surgery. Historical: - Allergies: 08:19 No Known Allergies; iw - PMHx: 08:19 DARLINE ANAL ABSCESS; strep; iw - PSHx: 08:19 Perianal abscess; iw - Immunization history:: Adult Immunizations unknown. - Social history:: Smoking status: Patient denies any tobacco usage or history of. ROS: 08:22 Eyes: Negative for injury, pain, redness, and discharge, ENT: Negative for injury, snw pain, and discharge, Neck: Negative for injury, pain, and swelling, Cardiovascular: Negative for chest pain, palpitations, and edema, Respiratory: Negative for shortness of breath, cough, wheezing, and pleuritic chest pain, Back: Negative for injury and pain, : Negative for injury, bleeding, discharge, and swelling, MS/Extremity: Negative for injury and deformity, Skin: Negative for injury, rash, and discoloration, Neuro: Negative for headache, weakness, numbness, tingling, and seizure, Psych: Negative for depression, anxiety, suicide ideation, homicidal ideation, and hallucinations, 08:22 Constitutional: Positive for rectal pain, 08:22 Abdomen/GI: Positive for rectal pain, no bleeding, Exam: 08:21 Constitutional: This is a well developed, well nourished patient who is awake, alert, snw and in no acute distress. Head/Face: Normocephalic, atraumatic. Eyes: Pupils equal round and reactive to light, extra-ocular motions intact. Lids and lashes normal. Conjunctiva and sclera are non-icteric and not injected. Cornea within normal limits. Periorbital areas with no swelling, redness, or edema. ENT: Nares patent. No nasal discharge, no septal abnormalities noted. Tympanic membranes are normal and external auditory canals are clear. Oropharynx with no redness, swelling, or masses, exudates, or evidence of obstruction, uvula midline. Mucous membranes moist. Neck: Trachea midline, no thyromegaly or masses palpated, and no cervical lymphadenopathy. Supple, full range of motion without nuchal rigidity, or vertebral point tenderness. No Meningismus. Chest/axilla: Normal chest wall appearance and motion. Nontender with no deformity. No lesions are appreciated. Cardiovascular: Tachycardic rate and rhythm with a normal S1 and S2. No gallops, murmurs, or rubs. Normal PMI, no JVD. No pulse deficits. Respiratory: Lungs have equal breath sounds bilaterally, clear to auscultation and percussion. No rales, rhonchi or wheezes noted. No increased work of breathing, no retractions or nasal flaring. Abdomen/GI: Soft, non-tender, with normal bowel sounds. No distension or tympany. No guarding or rebound. No evidence of tenderness throughout. severe tenderness to left darline-anal area Back: No spinal tenderness. No costovertebral tenderness. Full range of motion. Skin: Warm, dry with normal turgor. Normal color with no rashes, no lesions, and no evidence of cellulitis. MS/ Extremity: Pulses equal, no cyanosis. Neurovascular intact. Full, normal range of motion. Neuro: Awake and alert, GCS 15, oriented to person, place, time, and situation. Cranial nerves II-XII grossly intact. Motor strength 5/5 in all extremities. Sensory grossly intact. Cerebellar exam normal. Normal gait. Psych: Awake, alert, with orientation to person, place and time. Behavior, mood, and affect are within normal limits. Vital Signs: 08:19 BP 135 / 94; Pulse 121; Resp 16; Pulse Ox 100% on R/A; Weight 66.68 kg; Height 5 ft. 4 iw in. ; Pain 10/10; 09:00 BP 119 / 74; Pulse 112; Resp 16; Pulse Ox 100% on R/A; db 10:00 BP 131 / 77; Pulse 108; Resp 18; Pulse Ox 100% on R/A; db 11:00 BP 117 / 80; Pulse 102; Resp 18; Pulse Ox 100% on R/A; db 12:00 BP 110 / 69; Pulse 109; Resp 18; Pulse Ox 100% on R/A; db 12:45 BP 107 / 80; Pulse 105; Resp 18; Pulse Ox 98% ; db 13:15 Pain 8/10; db 08:19 Body Mass Index 25.23 (66.68 kg, 162.56 cm) iw 08:19 Pain Scale: Adult iw 13:15 Pain Scale: Adult db MDM: 08:14 Patient medically screened. snw 09:30 Differential diagnosis: hemorrhoids, fissure, abscess. Data reviewed: vital signs, snw nurses notes. Management of patient was discussed with the following: Hospitalist: perianal abscess with leukopenia, concerning for autoimmune, HIV . I considered the following discharge prescriptions or medication management in the emergency department Medications were administered in the Emergency Department. See MAR. Care significantly affected by the following chronic conditions: denies. Counseling: I had a detailed discussion with the patient and/or guardian regarding the historical points, exam findings, and any diagnostic results supporting the discharge/admit diagnosis, the presence of at least one elevated blood pressure reading (>120/80) during this emergency department visit, lab results, radiology results, the need for further work-up and treatment in the hospital. Response to treatment: the patient's symptoms have mildly improved after treatment. 10:21 ED course: Concern regarding pt's complaint in combination with leukopenia, concerning snw for HIV, Crohn's, or other autoimmune problem. Discussed this with patient who consents to further evaluation of cause. Pt states he had a negative HIV test about two years ago. 13:00 ED course: HIV antigens returned positive. Discussed result with patient. He voiced snw understanding.. 03/07 08:21 Order name: Blood Culture Adult (2) snw 03/07 08:21 Order name: CBC with Diff; Complete Time: 10:13 snw 03/07 08:21 Order name: CMP; Complete Time: 09:08 snw 03/07 08:21 Order name: Lactate w/ 2H reflex if indic.; Complete Time: 09:08 snw 03/07 08:21 Order name: Protime (+inr); Complete Time: 08:56 snw 03/07 08:21 Order name: Ptt, Activated; Complete Time: 08:56 snw 03/07 08:21 Order name: Urinalysis w/ reflexes; Complete Time: 09:36 snw 03/07 08:49 Order name: Manual Differential; Complete Time: 10:13 EDMS 03/07 09:14 Order name: HIV Ag/Ab Combo; Complete Time: 12:55 snw 03/07 09:14 Order name: [place] Screen Profile; Complete Time: 10:40 snw 03/07 09:14 Order name: Hep Panel; Complete Time: 11:52 snw 03/07 09:14 Order name: Procalcitonin; Complete Time: 10:40 snw 03/07 09:14 Order name: Vitamin B12; Complete Time: 10:59 snw 03/07 09:14 Order name: Ferritin; Complete Time: 10:59 snw 03/07 09:14 Order name: Misc. Lab Test snw 03/07 10:12 Order name: Slides for Pathologist Review EDMS 03/07 11:04 Order name: Basic Metabolic Panel EDMS 03/07 11:04 Order name: Basic Metabolic Panel EDMS 03/07 11:04 Order name: Basic Metabolic Panel EDMS 03/07 11:04 Order name: Basic Metabolic Panel EDMS 03/07 11:04 Order name: CBC with Automated Diff EDMS 03/07 11:04 Order name: CBC with Automated Diff EDMS 03/07 11:04 Order name: CBC with Automated Diff EDMS 03/07 11:04 Order name: CBC with Automated Diff EDMS 03/07 11:04 Order name: Magnesium EDMS 03/07 11:04 Order name: Magnesium EDMS 03/07 11:04 Order name: Magnesium EDMS 03/07 11:04 Order name: Magnesium EDMS 03/07 11:04 Order name: Phosphorus EDMS 03/07 11:04 Order name: Phosphorus EDMS 03/07 11:04 Order name: Phosphorus EDMS 03/07 11:04 Order name: Phosphorus EDMS 03/07 08:21 Order name: CT Pelvis w cont; Complete Time: 09:19 snw 03/07 08:21 Order name: EKG; Complete Time: 08:21 snw 03/07 08:21 Order name: Accucheck; Complete Time: 09:03 snw 03/07 08:21 Order name: Cardiac monitoring; Complete Time: 08:54 snw 03/07 08:21 Order name: EKG - Nurse/Tech; Complete Time: 08:54 snw 03/07 08:21 Order name: IV Saline Lock - Large Bore; Complete Time: 08:54 snw 03/07 08:21 Order name: Labs collected and sent; Complete Time: 08:54 snw 03/07 08:21 Order name: O2 Per Protocol; Complete Time: 08:54 snw 03/07 08:21 Order name: O2 Sat Monitoring; Complete Time: 08:54 snw 03/07 08:21 Order name: Vital Signs; Complete Time: 08:54 snw Administered Medications: 08:43 Drug: NS 0.9% IV (30 ml/kg) 30 ml/kg IV at bolus once; Sepsis Protocol Route: IV; Rate: db bolus; Site: right antecubital; 13:16 Follow up: Response: No adverse reaction; IV Status: Completed infusion; IV Intake: db 2000ml 08:43 Drug: HYDROmorphone IVP 1 mg IVP once Route: IVP; Site: right antecubital; db 13:00 Follow up: Response: No adverse reaction db 09:10 Drug: Piperacillin-Tazobactam IVPB 3.375 grams IVPB once over 60 mins; (mix in NS 100 db mL) Route: IVPB; Infused Over: 60 mins; Site: right antecubital; 10:05 Follow up: Response: No adverse reaction; IV Status: Completed infusion; IV Intake: db 100ml 13:31 Drug: HYDROmorphone IVP 1 mg IVP once Route: IVP; Site: right antecubital; db 13:40 Follow up: Response: No adverse reaction db Disposition: 09:07 I was immediately available on-site in the Emergency Department for consultation in the ms3 care of the patient. Disposition Summary: 03/07/23 09:34 Hospitalization Ordered Notes: Hospitalization Status: Inpatient Admission snw Provider: Dieudonne Castro Location: Telemetry/MedSurg (Inpatient) snw Condition: Stable snw Problem: an acute exacerbation snw Symptoms: have worsened snw Bed/Room Type: Standard snw Room Assignment: 210(03/07/23 12:46) bd Diagnosis - Darline-anal abscess, leukopenia snw Forms: - Medication Reconciliation Form snw - SBAR form snw - Leadership Thank You Letter snw Signatures: Dispatcher [employer] EDNY Bell Benoit bd Danika Abebe, TRICK RODEO RIDER-C TRICK RODEO RIDER-Csnw Virginia Olea, RN RN iw [place] DO DO ms3 Altagracia Tillman RN RN db Corrections: (The following items were deleted from the chart) 08:57 08:30 Social history: Smoking status: Patient/guardian denies using tobacco, db db 10:13 09:14 Miscellaneous Lab Test+[id number].LAB.BRZ ordered. [facility] EDNY 12:46 09:34 snw bd
[2023-03-07 09:46] LABS: Blood Morphology Comment NOT SEEN (NOT SEEN); Platelet Estimate ADEQ
[2023-03-07 10:51] LABS: Ferritin 180.9 ng/mL (26-388)
[2023-03-07] MEDS ORDERED: ACETAMINOPHEN 500 MG TAB PO PRN (10:58)
[2023-03-07 11:35] LABS: Hepatitis B Core IgM Nonreactive (Nonreactive); Hepatitis B surface AG Interp. Nonreactive (Nonreactive); Hepatitis C Virus Ab Nonreactive (Nonreactive)
[2023-03-07 14:28] VITALS: BMI 25.2
--- NOTE | 2023-03-07 16:45 | P.HP ---
Certification for Inpatient Patient admitted to: Inpatient With expected LOS: >2 Midnights Patient will require the following post-hospital care: None Practitioner: I am a practitioner with admitting privileges, knowledge of patient current condition, hospital course, and medical plan of care. Services: Services provided to patient in accordance with Admission requirements found in Title 42 Section 412.3 of the Code of Federal Regulations Patient History Date of Service: 03/07/23 Reason for admission: Rectal pain History of Present Illness: Dannie Snell 32-year-old male with past medical history of perianal abscesses. He presented to the ER today with rectal pain x2 days, stating the pain was on the left. He is unable to lay on his back due to discomfort. He reports no bleeding noted. He has been treated by Dr. Chakraborty for a previous perianal abscess. CT pelvis scan shows "fluid density along the right perirectal location measuring 28 x 11 mm without circumscribed room enhancement. This may indicate early/developing perirectal abscess". Lab values are significant with WBC 2.10, H&H 12.2/36.8, neutrophils 19.3, monocytes 51.7, eosinophils 5.3. Absolute neutrophils 0.4, HIV positive, UA negative. He will be admitted for perirectal abscess, Dr. Chakraborty will be consulted today, and new onset HIV work-up and treatment. Consult to Dr. Butler for recommendations. Neutropenic precautions in place. Allergies No Known Allergies Allergy (Unverified 02/13/16 00:11) Home Medications: NK [No Home Meds] 12/17/21 - Past Medical/Surgical History Has patient received pneumonia vaccine in the past: No Diabetic: No -: HIV positive -: murtaza-anal abscess - Social History Smoking Status: Never smoker Alcohol use: No CD- Drugs: No Caffeine use: Yes Place of Residence: Home Review of Systems General: Unremarkable Eyes: Unremarkable ENT: Unremarkable Respiratory: Unremarkable Cardiovascular: Unremarkable Gastrointestinal: Other (rectal pain) Genitourinary: Unremarkable Musculoskeletal: Unremarkable Integumentary: Other (perianal tissue breakdown) Neurological: Unremarkable Physical Examination - Vital Signs Blood Pressure: 107/80 Pulse: 105 Respirations: 18 - Physical Exam General: Alert, In no apparent distress, Oriented x3 HEENT: Atraumatic, Normocephalic, PERRLA Neck: Supple, 2+ carotid pulse no bruit, JVD not distended Respiratory: Clear to auscultation bilaterally, Normal air movement Cardiovascular: No edema, Normal pulses, Regular rate/rhythm, Normal S1 S2 Capillary refill: <2 Seconds Gastrointestinal: Normal bowel sounds, Soft and benign, Non-distended Musculoskeletal: No clubbing, No swelling, No contractures Integumentary: No rashes, Skin breakdown (perirectal ) Neurological: Normal speech, Normal strength at 5/5 x4 extr, Normal tone Rectal: Tenderness, Other (tissue breakdown) - Studies Laboratory Data (last 24 hrs) 03/07/23 03/07/23 03/07/23 08:32 08:32 08:32 WBC 2.10 L Hgb 12.2 L Hct 36.8 L Plt Count 335 PT 13.0 H INR 1.18 APTT 32.1 Sodium 135 L Potassium 3.5 BUN 8 Creatinine 1.14 Glucose 96 Total Bilirubin 0.8 AST 18 ALT 29 Alkaline Phosphatase 78 Assessment and Plan - Plan Assessment and Plan Perirectal abcess rectal pain -Morphine, hydrocodone -zosyn, doxy -IVF -consult Dr. Chakraborty HIV positve -CD4 and viral load pending -HIV RNA pending -supportive care -neutropenic precautions -Dr. Butler consulted DVT ppx: lovenox Full code LOS 2-3 days Discharge Plan: Home Plan to discharge in: 48 Hours - Advance Directives Does patient have a Living Will: No Does patient have a Durable POA for Healthcare: No Time Spent Managing Pts Care (In Minutes): 55
[2023-03-07] MEDS: MORPHINE 4 MG/ML SYR IV PRN ×2 (16:48→20:45)
[2023-03-07] MEDS: NA CHLORIDE 0.9% 1,000 ML IV SCH ×2 (18:21→20:47)
[2023-03-07] MEDS ORDERED: ONDANSETRON 4 MG/2 ML VIAL IV PRN (18:39)
[2023-03-07] MEDS: PIPER TAZO 3.375 GM in NA CHLORIDE 0.9% 100 ML IV SCH (20:45)
[2023-03-07] MEDS: DOXYCYCLINE 100 MG CAP PO SCH (20:45)
[2023-03-08] MEDS: MORPHINE 4 MG/ML SYR IV PRN (00:26)
[2023-03-08] MEDS: NA CHLORIDE 0.9% 1,000 ML IV SCH ×2 (03:54→10:08)
[2023-03-08 04:33] LABS: Absolute Lymphocytes (CBC) 0.5 K/uL (0.7-4.9); Hematocrit 33.2 % (39.6-49.0); Lymphocytes % 30.5 % (15.3-44.8); MCV 77.7 fL (80-100); MPV 6.8 fL (7.6-11.3); Platelets 281 thou/uL (152-406); RBC Red Blood Cell Count 4.27 M/uL (4.33-5.43)
[2023-03-08 04:49] LABS: Magnesium 1.8 mg/dL (1.6-2.4); Phosphorus 2.8 mg/dL (2.5-4.9); Potassium 3.2 mEq/L (3.5-5.1)
[2023-03-08] MEDS ORDERED: FENTANYL CITR 100 MCG/2 ML ONE (08:13)
[2023-03-08] MEDS ORDERED: propofoL 200 MG/20 ML VIAL IV ONE (08:13)
[2023-03-08] MEDS ORDERED: LIDOCAINE 2% MPF 5 ML VIAL ONE (08:13)
[2023-03-08] MEDS ORDERED: ONDANSETRON 4 MG/2 ML VIAL ONE (08:13)
[2023-03-08] MEDS ORDERED: KETOROLAC 30 MG/ML INJ ONE (08:13)
--- NOTE | 2023-03-08 08:15 | P.CNS ---
Date of Consult: 03/08/23 Reason for Consult: perianal abscess, HIV Chief Complaint: Rectal pain History of Present Illness: Patient is a 32-year-old male with a past medical history of perianal abscess and HIV who presented to the ED with complaints of rectal pain for 2 days. He reports being treated for perianal abscess in the past by Dr. Chakraborty. CT abdomen pelvis report "Fluid density along the right perirectal location measuring 28 x 11 mm without circumscribed rim enhancement. This may indicate early/developing perirectal abscess." General surgery and infectious disease were consulted. Allergies No Known Allergies Allergy (Unverified 02/13/16 00:11) Home medications list reviewed: Yes Home Medications: Amox/Clavulanate [Augmentin 875-125 Tab] 875 mg PO BID 10 Days #10 tab 03/08/23 - Past Medical/Surgical History Diabetic: No -: HIV positive -: murtaza-anal abscess - Social History Smoking Status: Unknown if ever smoked Alcohol use: No CD- Drugs: No Caffeine use: Yes Place of Residence: Home Review of Systems is unable to be obtained (patient off unit) Physical Examination Temp Pulse Resp BP Pulse Ox 99.5 F 113 H 15 137/76 95 03/08/23 04:00 03/08/23 04:00 03/08/23 04:00 03/08/23 04:00 03/08/23 04:00 Patient off unit in operating room for EUA, anoscopy, rigid proctoscopy, incisional biopsy, perianal ulcer/fissure by Dr. Chakraborty. Laboratory Data - Reviewed Microbiology Data - Reviewed Imagings Data: - Reviewed Conclusions/Impression: Problem List Perianal abscess HIV positive, new diagnosis Perianal Abscess - CT abdomen pelvis 03/07: "Fluid density along the right perirectal location measuring 28 x 11 mm without circumscribed rim enhancement. This may indicate early/developing perirectal abscess." - general surgery consulted - Currently on Zosyn and Doxycycline (started 03/07) - Patient in OR for EUA, anoscopy, rigid proctoscopy, incisional biopsy, perianal ulcer/fissure Recommendations - Continue current antibiotics for now - Follow up with culture results - Consider switch to Augmentin PO for 10 days upon discharge. - HIV viral load and CD4 count sent to lab. Follow up with results. Limited antiretroviral medications available at this facility. Patient instructed to follow up with HIV specialist at [facility] or in [place] as outpatient as soon as possible. Case discussed with Azalia Benjamin
[2023-03-08] MEDS ORDERED: KETAMINE HCL IN 0.9 % NACL 50 MG/5 ML SYRINGE IV ONE (08:51)
--- NOTE | 2023-03-08 08:52 | P.BOP ---
Preoperative diagnosis: perianal abscess, perianal pain Postoperative diagnosis: same, posterior perianal ulcer/fissure Primary procedure: EUA, anoscopy, rigid proctoscopy, Insional biopsy perianal ulcer/fissure Estimated blood loss: 5cc Specimen: culture, fissure/ulcer incisional biopsy Findings: posterior perianal fissure 0.5 x 0.7 cm , perianal abscess Anesthesia: General Complications: None Drain(s): Other (/" nugauze) Transferred to: Recovery Room Condition: Good
[2023-03-08] MEDS ORDERED: HYDROMORPHONE HCL 1 MG/ML INJ ONE (08:58)
[2023-03-08] MEDS ORDERED: MAGNESIUM SULFATE 1 gm IVPB 1 GM/100 ML BAG IV ONE (09:00)
[2023-03-08] MEDS ORDERED: POTASSIUM CL SA 10 MEQ TAB PO ONE (09:00)
[2023-03-08] MEDS ORDERED: ENOXAPARIN 40 MG/0.4 ML SQ SCH (09:00)
--- NOTE | 2023-03-08 09:59 | CON ---
Date of Consultation: 03/08/2023 Diagnosis: Perianal abscess, perianal tenderness. History Of Present Illness: This is the case of a 32-year-old patient who comes to us with a periana l tenderness that is diagnosed with perianal abscess. The patient has perianal abscess in the past s everal years ago for what he required incision and drainage and packing, but no specific cause for th at was found at that moment. He denies any trauma in that region. He denies any dysuria, hematuria, hematochezia, or melena. Denies any diarrhea. Denies any constipation. Allergies: NONE. Past Medical History: Perianal abscess and recently diagnosed with HIV positive. Social History: He does smoke. He does not drink any alcohol. Review of Systems: Ten points otherwise unremarkable. Physical Examination: General: The patient is awake, alert. HEENT: Pupils are equal and reactive. Anicteric. Neck: Supple. Chest: Clear. Heart: S1, S2. Abdomen: Soft and depressible. Anal: Examination shows perianal tenderness. Although examination is limited due to tenderness, we are going to do this under anesthesia. No masses seen. Extremities: Good capillary refill. Laboratory Data: Blood work shows a WBC count of 1.6, hemoglobin of 11.1, and platelets of 281. INR is 1.18. Sodium is 136, bicarb is 28. CT scan: There is a fluid density on the right perirectal l ocation. Probably an area of developing abscess per CAT scan. Assessment: This is a 32-year-old patient who comes to us with perianal tenderness, history of peria nal abscess in the past, now comes with tenderness like before, induration, and a CAT scan suggesting abscess, so we offered him examination under anesthesia, anoscopy, proctoscopy, incision and drainag e of a perianal/perirectal abscess with benefits, alternatives, and risks including, but not limited to infection, bleeding, damage to adjacent structures, anesthesia complication, recurrence, myocardia l infarction, and even . He also understands this may not relieve his symptoms. He might need otherwise more than one surgical intervention. Once again, we advised him to follow with a gastroent erologist as an outpatient when they can do a full workup trying to look for reasons of his perianal abscess that may be also an autoimmune disease. 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 He understood he may need packing in that area. JONEL/QUIANA Voice ID: [id number] Report ID: [id number]
[2023-03-08] MEDS: PIPER TAZO 3.375 GM in NA CHLORIDE 0.9% 100 ML IV SCH (10:06)
[2023-03-08] MEDS: ENOXAPARIN 40 MG/0.4 ML SQ SCH (10:07)
[2023-03-08] MEDS: DOXYCYCLINE 100 MG CAP PO SCH ×2 (10:07→20:05)
--- NOTE | 2023-03-08 11:31 | P.PN ---
Subjective Date of Service: 03/08/23 Chief Complaint: Perianal abscess s/p I&D Patient is improving he has had incision and drainage today by Dr. Chakraborty Review of Systems Unremarkable Physical Examination - Vital Signs Temperature: 98.4 F Blood Pressure: 124/54 Pulse: 111 Respirations: 18 Pulse Ox (%): 95 - Physical Exam General: Alert, In no apparent distress, Oriented x3 Cardiovascular: No edema, Normal pulses Assessment And Plan - Current Problems (Diagnosis) (1) Perianal abscess Current Visit: Yes Status: Acute Plan: Patient is 32 years of age admitted with recurrent perianal abscess s/p incision and drainage changed to p.o. Augmentin (2) HIV positive Current Visit: Yes Status: Acute Plan: Seen by infectious disease
--- NOTE | 2023-03-08 11:43 | P.DS ---
Admission Date: 03/07/23 Discharge Date: 03/08/23 Disposition: ROUTINE DISCHARGE Discharge Condition: FAIR Reason for Admission: Perianal abscess s/p I&D - Problems (1) Perianal abscess Current Visit: Yes Status: Acute (2) HIV positive Current Visit: Yes Status: Acute Brief History of Present Illness: Patient is 32 years of age and admitted with recurrent perianal abscess Hospital Course: Patient was admitted to the hospital started on IV antibiotics seen by Dr. Chakraborty incision and drainage was done early uncomplicated surgical procedure and was also tested positive for HIV he is to follow-up with HIV clinic at [facility] or in [place] was discharged home on Augmentin with discharge wound instructions seen by ID he is also neutropenic will need to follow-up with infectious disease CD4 count and HIV viral load were sent at time of discharge he was alert oriented responsive cooperative no new complaints slight discomfort patient is was informed about the diagnosis of HIV Vital Signs/Physical Exam: Temp Pulse Resp BP Pulse Ox 98.4 F 111 H 18 124/54 L 95 03/08/23 11:31 03/08/23 11:31 03/08/23 11:31 03/08/23 11:31 03/08/23 11:31 Laboratory Data at Discharge: WBC 1.60 thou/uL (4.3-10.9) L 03/08/23 04:15 Hgb 11.1 g/dL (13.6-17.9) L D 03/08/23 04:15 Hct 33.2 % (39.6-49.0) L 03/08/23 04:15 Plt Count 281 thou/uL (152-406) 03/08/23 04:15 PT 13.0 SECONDS (9.5-12.5) H 03/07/23 08:32 INR 1.18 03/07/23 08:32 APTT 32.1 SECONDS (24.3-36.9) 03/07/23 08:32 Sodium 136 mEq/L (136-145) 03/08/23 04:15 Potassium 3.2 mEq/L (3.5-5.1) L 03/08/23 04:15 BUN 5 mg/dL (7-18) L 03/08/23 04:15 Creatinine 1.13 mg/dL (0.70-1.30) 03/08/23 04:15 Glucose 86 mg/dL (74-106) 03/08/23 04:15 Phosphorus 2.8 mg/dL (2.5-4.9) 03/08/23 04:15 Magnesium 1.8 mg/dL (1.6-2.4) 03/08/23 04:15 Total Bilirubin 0.8 mg/dL (0.2-1.0) 03/07/23 08:32 AST 18 U/L (15-37) 03/07/23 08:32 ALT 29 U/L (16-61) 03/07/23 08:32 Alkaline Phosphatase 78 U/L (45-117) 03/07/23 08:32 Home Medications: Amox/Clavulanate [Augmentin 875-125 Tab] 875 mg PO BID 10 Days #10 tab 03/08/23 New Medications: Amox/Clavulanate [Augmentin 875-125 Tab] 875 mg PO BID 10 Days #10 tab Physician Discharge Instructions: Please fax the prescription for Augmentin to the pharmacy Check with Dr. Chakraborty regarding wound instructions Diet: Regular Activity: Ad shay Followup: Dieudonne Castro MD [ACTIVE - CAN ADMIT] - NONE,NONE [Primary Care Provider] -
[2023-03-08] MEDS ORDERED: AMOX/K CLAV 500 MG TAB PO SCH (14:00)
[2023-03-08] MEDS: HYDROCODONE/APAP 5/325 MG TAB PO PRN ×2 (14:55→18:46)
--- NOTE | 2023-03-08 19:35 | OP ---
Surgeon: Derik Chakraborty MD Preoperative Diagnoses: Perianal abscess, perianal pain. Postoperative Diagnoses: Perianal abscess, perianal pain, posterior perianal ulcer/fissure. Procedure: EUA, anoscopy, rigid proctoscopy, incisional biopsy of perianal ulcer/fissure. Estimated Blood Loss: Less than 5 cc. Specimen: Culture and incisional biopsy of the fissure/ulcer. Findings: Posterior perianal fissure 0.5 x 0.7 cm and also perianal abscess. Anesthesia: General plus local. Complications: None. Packing: Quarter of an inch Nu Gauze. Indication: This is the case of a 32-year-old patient, coming to us with a perianal abscess, recentl y diagnosed also with HIV. The benefits, alternatives, and risks of EUA, anoscopy, proctoscopy, I an d D of perianal/perirectal abscess fully explained, which include, but not limited to infection, blee ding, damage to adjacent structures, anesthesia complication, recurrence, UT, and even . He als o understands this may not relieve any symptoms. He might need more than one surgical intervention. We discussed possible causes of these abscess, although the final etiology is difficult to say at th is moment. He understood. He signed a consent. Description Of Procedure: The patient was brought to the operating room, placed in supine position. Anesthesia was done without complication. The patient was placed in lithotomy position with proper protection. A time-out was called. Local anesthesia was applied followed by introduction of the rig id proctoscopy limited by the amount of stool to about 12 cm. The patient has no previous bowel prep . We noted the patient to have a posterior perianal ulcer which is about 0.7 x 0.5 cm. We could not see any tunnel of that to connect to the perirectal region or any fistula seen. At that moment, I p roceed to place an anoscope with a window on the side and confirmed the findings once again. Patient has internal and external hemorrhoids, but they are small and then we have this fissure present in t he posterior area and then with the help of an 18-gauge needle, we were able to localize the abscess of concern in the perianal/perirectal region. After that, I proceeded then to make an incision. We found a cavity, removed the fluid and cultured it and then packed the area with a quarter of an inch. We also did a biopsy of the perianal ulcer/fissure. Hemostasis was obtained at all time. The millicent ent tolerated the procedure well. Patient was sent to recovery in stable condition. JONEL/QUIANA Voice ID: [id number] Report ID: [id number]
[2023-03-08] MEDS: AMOX/K CLAV 875 MG TAB PO SCH (20:06)
[2023-03-08 21:00] VITALS: O2SAT 98
[2023-03-09] MEDS: HYDROCODONE/APAP 5/325 MG TAB PO PRN ×2 (02:42→10:21)
[2023-03-09 03:24] LABS: Absolute Lymphocytes (CBC) 0.5 K/uL (0.7-4.9); Hematocrit 28.7 % (39.6-49.0); Lymphocytes % 21.3 % (15.3-44.8); MCV 76.5 fL (80-100); MPV 7.2 fL (7.6-11.3); Platelets 220 thou/uL (152-406); RBC Red Blood Cell Count 3.75 M/uL (4.33-5.43)
[2023-03-09 03:35] LABS: Magnesium 2.1 mg/dL (1.6-2.4); Phosphorus 2.2 mg/dL (2.5-4.9); Potassium 3.9 mEq/L (3.5-5.1)
[2023-03-09 05:32] VITALS: BP 103/58; TEMP 97
--- NOTE | 2023-03-09 08:31 | P.PN ---
Subjective Date of Service: 03/09/23 Chief Complaint: Rectal pain Subjective: Improving, Doing well Review of Systems 10-point ROS is otherwise unremarkable Other: rectal pain Physical Examination - Vital Signs Temperature: 97.0 F Blood Pressure: 103/58 Pulse: 93 Respirations: 15 Pulse Ox (%): 96 - Physical Exam General: Alert, In no apparent distress, Oriented x3 HEENT: Atraumatic, Normocephalic, PERRLA Neck: Supple, JVD not distended Respiratory: Clear to auscultation bilaterally, Normal air movement, Other (breathing comfortably on room air. ) Cardiovascular: No edema, Normal pulses, Regular rate/rhythm Gastrointestinal: Normal bowel sounds, Soft and benign, Non-distended, No tenderness Musculoskeletal: No clubbing, No swelling Integumentary: Other (s/p debridement of perianal abscess) Neurological: Normal speech, Normal strength at 5/5 x4 extr, Normal tone, Normal affect - Studies Laboratory Data - Reviewed Microbiology Data (last 24 hrs): Microbiology Data - Reviewed Imagings Data: - Reviewed Medications List Reviewed: Yes Assessment And Plan - Plan Problem List Perianal abscess HIV positive, new diagnosis Perianal Abscess - CT abdomen pelvis 03/07: "Fluid density along the right perirectal location measuring 28 x 11 mm without circumscribed rim enhancement. This may indicate early/developing perirectal abscess." - general surgery consulted - Zosyn and Doxycycline 03/07 switched to Augmentin PO 03/08 - 03/08 underwent EUA, anoscopy, rigid proctoscopy, incisional biopsy, perianal ulcer/fissure by Dr. Chakraborty Recommendations - Continue Augmentin PO for 10 days upon discharge. - Follow up with culture results - Continue wound care per Dr. Chakraborty and follow up with Dr. Chakraborty as outpatient. - HIV viral load and CD4 count sent to lab. Follow up with results. Limited antiretroviral medications available at this facility. Patient instructed to follow up with HIV specialist at [facility] or in [place] as outpatient as soon as possible. Case discussed with Azalia Benjamin
[2023-03-09] MEDS ORDERED: POTASSIUM CL SA 10 MEQ TAB PO ONE (09:00)
[2023-03-09] MEDS ORDERED: POTASS/SODIUM PHOSPHATE 1 PKT POWD.PACK PO ONE (09:00)
[2023-03-09] MEDS: AMOX/K CLAV 875 MG TAB PO SCH (09:11)
[2023-03-09] MEDS: ENOXAPARIN 40 MG/0.4 ML SQ SCH (09:11)
[2023-03-09] MEDS: DOXYCYCLINE 100 MG CAP PO SCH (09:12)
--- NOTE | 2023-03-10 09:38 | P.DS ---
Admission Date: 03/07/23 Discharge Date: 03/09/23 Disposition: ROUTINE DISCHARGE Discharge Condition: GOOD Reason for Admission: Rectal pain - Problems (1) Perianal abscess Status: Acute (2) HIV positive Status: Acute Brief History of Present Illness: Patient is 32 years of age and admitted with recurrent perianal abscess Hospital Course: Patient continued to have pain at the time of discharge on 03 08 and was kept in for observation at time of discharge patient was doing much better he had a bowel movement still having some rectal pain and was informed that he is HIV positive and he needs to follow-up with infectious disease was discharged home on Augmentin also called in some pain meds from my office to take [id number] lactulose cultures are still pending on the wound Vital Signs/Physical Exam: Temp Pulse Resp BP Pulse Ox 97.0 F 93 H 15 103/58 L 96 03/09/23 14:17 03/09/23 14:17 03/09/23 14:17 03/09/23 14:17 03/09/23 14:17 Laboratory Data at Discharge: WBC 2.50 thou/uL (4.3-10.9) L 03/09/23 02:08 Hgb 9.9 g/dL (13.6-17.9) L D 03/09/23 02:08 Hct 28.7 % (39.6-49.0) L 03/09/23 02:08 Plt Count 220 thou/uL (152-406) 03/09/23 02:08 PT 13.0 SECONDS (9.5-12.5) H 03/07/23 08:32 INR 1.18 03/07/23 08:32 APTT 32.1 SECONDS (24.3-36.9) 03/07/23 08:32 Sodium 138 mEq/L (136-145) 03/09/23 02:08 Potassium 3.9 mEq/L (3.5-5.1) D 03/09/23 02:08 BUN 6 mg/dL (7-18) L 03/09/23 02:08 Creatinine 1.02 mg/dL (0.70-1.30) 03/09/23 02:08 Glucose 88 mg/dL (74-106) 03/09/23 02:08 Phosphorus 2.2 mg/dL (2.5-4.9) L 03/09/23 02:08 Magnesium 2.1 mg/dL (1.6-2.4) 03/09/23 02:08 Total Bilirubin 0.8 mg/dL (0.2-1.0) 03/07/23 08:32 AST 18 U/L (15-37) 03/07/23 08:32 ALT 29 U/L (16-61) 03/07/23 08:32 Alkaline Phosphatase 78 U/L (45-117) 03/07/23 08:32 Home Medications: Amox/Clavulanate [Augmentin 875-125 Tab] 875 mg PO BID 10 Days #10 tab 03/08/23 New Medications: Amox/Clavulanate [Augmentin 875-125 Tab] 875 mg PO BID 10 Days #10 tab Physician Discharge Instructions: Please fax the prescription for Augmentin to the pharmacy Check with Dr. Chakraborty regarding wound instructions Take OTC Miralax stool softner FU with HIV clinic at [facility] or [place] I will fax in painmeds from my office Diet: Regular Activity: Ad shay Followup: Dieudonne Castro MD [ACTIVE - CAN ADMIT] - Derik Chakraborty MD [ACTIVE - CAN ADMIT] - 1-2 Weeks NONE,NONE [Primary Care Provider] -
== END 2023-03-09 10:38 | disposition home or self-care (01) | DRG 395 ==
LOC: ER 08:06 → INTOOBSV 10:59 → OBSVTOIN 10:59 → ERHOLD 10:59 → 2ND 13:32
PROVIDERS: ADMIT Internal Medicine Sleep Medicine; ATTEND Internal Medicine Sleep Medicine
PROC: 0D9Q8ZX Drainage of Anus, Via Natural or Artificial Opening Endoscopic, Diagnostic (ICD-10-PCS; principal; 2023-03-08 08:00)
DX: K61.0 Anal abscess (principal); D70.9 Neutropenia, unspecified; Z21 Asymptomatic human immunodeficiency virus [HIV] infection status
CPT/HCPCS: 36415; 72193; 80048; 80053; 80074; 81001; 82607; 82728; 83605; 83735; 84100; 84145; 85025; 85610; 85730; 86308; 86360; 86361; 87040; 87070; 87075; 87077; 87186; 87205; 87389; 87535; 87536; 87906; 88305; 96365; 96366; 96375; 99285; J1170; J1650; J2001; J2405; J2543; J2704; J3010; J3475; J7030; Q9967